=== PATIENT | male | born 1950 | race Caucasian/White ===

== ENCOUNTER 2016-06-29 10:01 | Outpatient (CLI) | payer MEDICAID ==
--- NOTE | 2016-06-30 05:57 | CONSULTATION NOTE ---
DATE OF CONSULTATION: 06/29/2016 00:00:00 REQUESTING PROVIDER: Frankie Parker MD, PhD TIME OF VISIT 11:30-12:15. Thank you, Dr. Parker, for asking the Palliative Care Consult Service to be involved in the care of yo ur patient. I am asked to provide support for symptom management, currently following him for his dep ression and anxiety. BRIEF HISTORY OF PRESENT ILLNESS: This is a esperanza 65-year-old gentleman with stage IV metastatic col on cancer to the liver diagnosed in 07/2015. He is currently on maintenance 5-FU and Avastin since . He has previously been diagnosed with metastatic disease to the lung in 09/2014, with a left l ower lobe resection in 02/2015. His initial treatment and diagnosis was actually stage II colon cance r in 07/2010. At that point in time, no adjuvant therapy. Currently he continues to struggle with the side effects of chemotherapy; most recently his most sign ificant symptom has been fatigue. He reports he is extremely tired. He has had some early satiety and difficulty eating. He has had about a 5-pound weight loss over this last month. He continues struggl ing with constipation alternating with the diarrhea; does seem to have difficulty being fairly aggres sive with his medications. His most pressing symptom overlay today continues to be his ongoing depres rosalva and situational stressors regarding his finances. SYMPTOM BURDEN: The patient does report right ankle pain that limits his functional ability; is curre ntly being seen by Physical Therapy. At this point in time he it taped, both his right ankle and righ t knee; he does feel like this helps, though he does continue to need his oxycodone 5 mg tabs - he ta kes anywhere from 4-6 tabs a day, depending on the severity and his activity. He continues to complai n of right hand, is wondering round about carpal tunnel syndrome. He has not followed up yet with Dr. Peralta. He does have anxiety and depression; has been inconsistent on his sertraline. He does have so me difficulty with medication compliance and remembering his pills. He remains easily overwhelmed and has recently seen the medical palliative care social research assistant to help him and assist with some followt hrough on his different financial stressors, as well as provide support and counseling. CODE STATUS: The patient is currently a FULL CODE. He does have a durable power of medical client care consultant, which is Moreno Marin, his brother, whose phone number is [phone]; and Lewis Marin as second in line, who is his nephew, who lives in [place], particularly if his brother is not available, and his phone number is [phone]. BRIEF SOCIAL HISTORY: The patient does live independently in an apartment in [place]. He does have a girlfriend, Shantelle, who provides psychosocial support, as well as the patient himself has been providin g support for her family. He does take care of Bobby, who is now in the 5th grade; it is a fairly con voluted story, but he is his girlfriend's sister's grandson. He does spend the weekend and does try t o provide somewhat of a big brother approach and has been very active in this little mari's life, and essentially perceives this as what keeps him going. PERFORMANCE STATUS: The patient continues to manage his own ADLs despite his fatigue. I would put him at a palliative care performance status of 70%. REVIEW OF SYSTEMS HEENT: He does have difficulty with teeth and dental issues; has had some mucositis with his last ellie motherapy. CARDIOVASCULAR: No chest pain. RESPIRATORY: He has shortness of breath and cough with any activity. GASTROINTESTINAL: He continues to struggle using his Imodium and Lomotil. He does have intermittent a norexia. 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 GENITOURINARY: He denies trouble with voiding. MUSCULOSKELETAL: He does continue to report deconditioning and fatigue and is starting with physical therapy. INTEGUMENTARY: His abdominal wound is healed. No further drainage. He does have some numbness and tin gling and dry skin on his fingers. PSYCHIATRIC: As noted above. ENDOCRINE: He continues to have feelings of coldness. HEMATOLOGIC/IMMUNOLOGIC: No recent infections. He reports he managed to evade the cold and flu with j ust maybe a 24-hour viral infection. PHYSICAL EXAMINATION GENERAL APPEARANCE: He does appear somewhat fatigued and pale. He is making eye contact. He is less t earful today. He does have some facial temporal wasting, as well as upper extremity. HEENT: Eyes normal on inspection. ENT: Poor dentition. No signs or symptoms of mucositis or candidias is at this point in time. RESPIRATORY: His breath sounds are diminished. CARDIOVASCULAR: His blood pressure is 131/92, pulse 71. ABDOMEN: Rounded, soft to palpation. Bowel tones are present. SKIN: His wound on his mid umbilical area has healed. He does have dry cracks in the tips of his fing ers and some peeling in his palms. EXTREMITIES: No signs or symptoms of edema. PALLIATIVE CARE DISCUSSION/WHO IS PRESENT: Myself and the patient. Patient, again, continues to strug gle with adherence to his medication, though he reports he has been taking it on a regular basis. We did discuss, given his depression and anxiety, weighing the benefits and burdens of increasing at thi s point in time. He most recently is struggling, with his car broken down, and this puts him with mor e difficulty with transportation, and it is a huge bill to get it fixed, and he is already struggling . He was hoping to find some kind of employment for a couple days a week despite his fatigue and has not been able to do this, and this has been quite distressing to him. He continues to work with [employer] agencies and so feels overwhelmed at times on following through. He does report he gets intermit tent anxiety attacks with this. When asked if he has thought much further into the future, as far as long-term plans, he remains quite guarded, hoping for the best. We did discuss, though, in the contex t of his financial situation, that preplanning some of the things into the future may be of assistanc e in helping him when the time comes. IMPRESSION: This is a 65-year-old gentleman with metastatic colon cancer to the liver and lung. He co ntinues to have depression and intermittent anxiety. He remains quite hopeful and continues to focus on gaining as much quality and quantity out of his life, as far as continuing therapy. His hope is to be around as long as possible for his "little franklin, Bobby." RECOMMENDATIONS/COUNSELING DONE 1. Chronic right ankle pain. I did provide his oxycodone prescription 5 mg 1 every 4 hours as needed, not to exceed 6 in 24 hours, 120 tabs, in the context that his primary care did follow up with him t o make an appointment for his right hand pain; he has not followed through on this. I did instruct th at, if he wanted resolution of this, he would have to follow up for proper workup regarding his right hand. He does suspect carpal tunnel, and it does impact his ability to type. 2. Depression in partial remission. He has restarted his sertraline; hard to weigh the benefits and b urdens, though he does seem less tearful. He continues to report intermittent anxiety. We did discuss weighing the benefits and burdens of pushing the dose up a little bit; I went ahead and wrote a pres cription for 50 mg and 25 mg tabs for a total of 75 mg. He has met with the medical palliative care s ocial worker. The patient has somewhat maximized all his resources. She did encourage him to follow u p with [facility], who is his community advocacy network. I did give him the number for [facility]; they do sometimes assist "outside of the box" and may be able to help with some of his expenses. Counseling regarding normalizing his feelings of distress, given his current situation, did validate some of the work he is doing with Bobby in preparation for his future decline. Also discussed [facility], as far as planning into the future. 3. Anorexia. I did offer to write for something for an appetite stimulant; patient currently feels li ke he can work with marijuana. As far as timing-rueda, as it is effective for him, we did discuss some different strategies for increasing his caloric intake. Did reinforce counseling regarding the need to stay weight neutral as best able to tolerate his treatment. Instruction reinforced on mouth care f or mucositis. Time spent 45 minutes, with greater than 50% of this done in counseling and coordination of care, cou nseling regarding depression and anxiety, Social Service followup, as well as anticipatory guidance. JOB #: [id number] EXT JOB #:[id number]
== END 2016-06-29 10:02 | disposition home or self-care (01) ==
LOC: PC 10:01
PROVIDERS: ATTEND Nurse Practitioner Adult Health
DX: C22.9 Malignant neoplasm of liver, not specified as primary or secondary (principal); Z86.008 Personal history of in-situ neoplasm of other site; F41.8 Other specified anxiety disorders; R53.0 Neoplastic (malignant) related fatigue; R68.81 Early satiety; R63.4 Abnormal weight loss; M25.561 Pain in right knee; M25.571 Pain in right ankle and joints of right foot; K12.30 Oral mucositis (ulcerative), unspecified; R06.02 Shortness of breath; R63.0 Anorexia; R20.0 Anesthesia of skin; Z51.5 Encounter for palliative care
CPT/HCPCS: 99215

== ENCOUNTER 2016-07-10 10:08 | Outpatient (CLI) | payer MEDICAID | END 2016-07-10 10:09 | disposition home or self-care (01) | DX: M18.11 Unilateral primary osteoarthritis of first carpometacarpal joint, right hand (principal); M19.031 Primary osteoarthritis, right wrist; M25.531 Pain in right wrist ==

== ENCOUNTER 2016-07-27 | Outpatient (CLI) | payer MEDICAID | END 2016-07-27 12:44 | disposition home or self-care (01) ==

== ENCOUNTER 2016-08-24 09:57 | Outpatient (CLI) | payer MEDICAID | END 2016-08-24 09:58 | disposition home or self-care (01) | DX: C18.9 Malignant neoplasm of colon, unspecified (principal); C78.7 Secondary malignant neoplasm of liver and intrahepatic bile duct; C78.00 Secondary malignant neoplasm of unspecified lung; M25.571 Pain in right ankle and joints of right foot; K46.9 Unspecified abdominal hernia without obstruction or gangrene; F33.41 Major depressive disorder, recurrent, in partial remission; F41.9 Anxiety disorder, unspecified; J32.9 Chronic sinusitis, unspecified; B97.89 Other viral agents as the cause of diseases classified elsewhere; G56.01 Carpal tunnel syndrome, right upper limb; R53.83 Other fatigue; R11.0 Nausea; R06.02 Shortness of breath; Z51.5 Encounter for palliative care ==

== ENCOUNTER 2016-09-21 14:53 | Outpatient (CLI) | payer MEDICAID | END 2016-09-21 14:54 | disposition home or self-care (01) | DX: Z53.8 Procedure and treatment not carried out for other reasons (principal) ==

== ENCOUNTER 2016-10-26 08:49 | Day surgery (SDC) | payer MEDICAID ==
[2016-10-26] MEDS ORDERED: LACTATED RINGERS 1,000 ML IV ONE (09:47)
[2016-10-26] MEDS ORDERED: ceFAZolin 2 GM/50 ML 50 ML IV ONE (10:48)
[2016-10-26] MEDS ORDERED: BUPIVACAINE 0.5% PF 10 ML VIAL IM ONE ×2 (12:47)
[2016-10-26] MEDS ORDERED: ONDANSETRON 4 MG/2 ML VIAL IVP ONE (12:50)
[2016-10-26] MEDS ORDERED: fentaNYL 100 MCG/2 ML VIAL IVP ONE (12:50)
[2016-10-26] MEDS ORDERED: MIDAZOLAM 2 MG/2 ML VIAL IVP ONE (12:50)
[2016-10-26] MEDS ORDERED: LIDOCAINE-MPF 2% 5 ML VIAL IM ONE (12:50)
[2016-10-26] MEDS ORDERED: PROPOFOL 200 MG/20 ML VIAL IVP ONE (12:50)
[2016-10-26] MEDS ORDERED: SUCCINYLCHOLINE 200 MG/10 ML VIAL IVP ONE (12:50)
[2016-10-26] MEDS ORDERED: ePHEDrine 50 MG/ML AMP IVP ONE (12:50)
[2016-10-26] MEDS ORDERED: DEXAMETHASONE 4 MG/ML VIAL IVP ONE (12:50)
[2016-10-26 15:07] VITALS: BP 143/88
--- NOTE | 2016-11-11 11:52 | OPERATIVE REPORT ---
DATE OF SURGERY: 10/26/2016 00:00:00 PREOPERATIVE DIAGNOSIS: Right carpal tunnel syndrome. POSTOPERATIVE DIAGNOSIS: Right carpal tunnel syndrome. NAME OF PROCEDURE: Right carpal tunnel release. SURGEON: Derrell Blakely MD. ASSISTANTS: None. SPONGE AND NEEDLE COUNTS: Correct. MATERIAL TO LAB: None. ANESTHESIA: General endotracheal. FINDINGS: Same. COMPLICATIONS: None. TOURNIQUET: Esmarch to right hand x11 minutes without complications. ESTIMATED BLOOD LOSS: None. SPECIMEN REMOVED AND CULTURES: None. CONDITION AT END OF PROCEDURE: Stable. DISPOSITION: PACU, then home. INDICATIONS: This is a 65-year-old male with documented history of bilateral carpal tunnel syndrome w ho is undergoing a right carpal tunnel release after findings were confirmed with EMG and nerve condu ction studies and he has failed conservative management. PROCEDURE IN DETAIL: After consent and identification, the patient was brought to the operating room and placed in a supine position on the operating litter. After induction of a general endotracheal an esthesia and appropriate monitoring, the right upper extremity was prepped and draped free in the usu al sterile fashion for hand surgery. After an appropriate timeout was conducted, we used an Esmarch bandage to exsanguinate the upper extr emity and left it wrapped at the proximal forearm up to just past the elbow. We supinated the forearm and mapped out an incision just lateral to the mid palmar crease extending from the wrist flexor cre ase distally, a total of 3 cm. Skin was incised with a #15 blade scalpel through the skin and subcuta neous tissue. The #15 blade scalpel was used to divide the palmar fascia. A Heiss retractor and Lizbeth ll retractors were used to retract the soft tissues, which allowed identification of the transverse c arpal retinaculum. We incised the retinaculum just ulnar to the origin of the thenar musculature. Swe eping motions of the midportion of the retinaculum were used to make a small rent, through which we i nserted the blunt end of a [place] elevator to protect the median nerve. We then completed our dissecti on distally and proximally with a #15 blade scalpel and tenotomy scissors. Digital exploration with my small finger verified adequate release of the carpal tunnel both proximal ly and distally. Instrumentation was removed, the wound was irrigated, and then closed with a running interlocked 4-0 nylon suture. After completing the suturing, we infiltrated the wound with 5 mL of 0.5% Marcaine without epinephrin e. The wound was dressed with Xeroform gauze, folded 4 x 4's, 3 inch Miky wrap, and 3-inch Garrick bandage for a bulky hand dressing. On completion of the procedure, the patient was extubated and transferred to the recovery room in [facility] condition having tolerated the procedure well. JOB #: [id number] EXT JOB #:[id number]
== END 2016-10-26 08:50 | disposition home or self-care (01) ==
LOC: SDS 08:49
PROVIDERS: ATTEND Orthopaedic Surgery
PROC: 01N50ZZ Release Median Nerve, Open Approach (ICD-10-PCS; principal; 2016-10-26 10:15)
DX: G56.01 Carpal tunnel syndrome, right upper limb (principal); Z87.891 Personal history of nicotine dependence; I10 Essential (primary) hypertension; Z92.21 Personal history of antineoplastic chemotherapy; K21.9 Gastro-esophageal reflux disease without esophagitis; F32.9 Major depressive disorder, single episode, unspecified; F41.9 Anxiety disorder, unspecified; M19.011 Primary osteoarthritis, right shoulder; Z79.82 Long term (current) use of aspirin; J44.9 Chronic obstructive pulmonary disease, unspecified; C18.9 Malignant neoplasm of colon, unspecified; R64 Cachexia; Z68.23 Body mass index [BMI] 23.0-23.9, adult
CPT/HCPCS: 64721; J0690; J7120

== ENCOUNTER 2016-11-10 11:18 | Outpatient (CLI) | payer MEDICAID ==
--- NOTE | 2016-11-11 05:48 | CONSULTATION NOTE ---
DATE OF CONSULTATION: 11/10/2016 00:00:00 REQUESTING PROVIDER: Frankie Parker MD. TIME OF VISIT: 12:15-12:45. Thank you, Dr. Parker, for asking the palliative care consultation service to be involved in the care of your patient. I am asked to provide support for symptom management. I am currently following him f or his pain, depression and anxiety and transitions of care. BRIEF HISTORY OF PRESENT ILLNESS UPDATE: This is a 65-year-old gentleman with stage IV metastatic col on cancer to the liver, diagnosed in 07/2015. He also has metastatic disease to the lung and left low er lobe resection in 02/2015. He was off chemotherapy for 3 weeks, for which he said he actually felt pretty good, had more energy. His bowels were regulated. His appetite was improved and felt overall better quality of life. He, though, himself his goals are to obtain as much quantity and quality of l cole, as he does have many things yet that he wants to complete and accomplish and support in his life . He has most recently addressed his carpal tunnel syndrome, which is right hand on 10/26 had surgery . He has had some improvement with the numbness, that the pain is mostly resolved. On examination, he has no swelling. He has good range of motion and his stitches are still intact. He has not had a fol lowup with his surgeon yet. He continues with intermittent pain. Most of it is osteoarthritic in natu re, particularly his right ankle, for which he uses oxycodone 1-2 tabs a day. Has used it more freque ntly with his recent surgery. Since I last saw him on 08/24, he had missed his appointment September, he has had some weight loss. Toda y, he weighs in at 142. When I saw him 2 months ago he was 149. His weight in September was 146. He repor ts he continues to struggle with eating regularly. They are many barriers including financial, as wel l as adherence and staying focused. He does try to use Ensure, but has not been as consistent lately. He does have some temporal and upper and lower body wasting and does appear quite thin and somewhat dry today. We did explore his depression. He has been taking his sertraline as instructed. He does have a fluctu ating mood and ongoing anxiety. These are mostly attributed to his financial stressors and some anxie ty about the future. He perceives though currently his overall quality of life is quite good. Please see palliative care discussion. CODE STATUS: THE PATIENT IS CURRENTLY A FULL CODE. HE DOES HAVE DURABLE POWER OF MEDICAL DIRECTOR VIDEO, HI S BROTHER, RENEE MARTIN, HIS PHONE NUMBER IS [phone], AND HIS NEPHEW, CHEMA MARTIN, IF HIS BR OTHER IS NOT AVAILABLE, HIS PHONE NUMBER IS [phone]. BRIEF SOCIAL HISTORY: The patient lives independently in a low income apartment in [place]. Has a gir lfriendShantelle, who is otherwise distracted with her own family issues. Her mother recently and h er sister is doing poorly. He does give a fair amount of support to what he calls his grandson, Bobby , taking him on the weekends and is expecting to have more time with him in the summer. He finds this relationship quite meaningful. The boy has his challenges including ADHD and finds the relationship as a somewhat stabilizing force. The patient identifies this as his perceived reason for living, this relationship, and is quite committed. PERFORMANCE STATUS: The patient continues to manage his own ADLs. He has been driving more. I would a ctually put him at a palliative care performance status of 70%. REVIEW OF SYSTEMS HEENT: He reports a good response to the Flonase, it has been better since actually he stopped his ch emotherapy. He continues to have difficulty with teeth and dental issues, some mild hearing issues. CARDIOVASCULAR: Denies chest pain, only some intermittent GERD. RESPIRATORY: Shortness of breath with activity only, occasional dry cough. This is not changed from b aseline. GASTROINTESTINAL: He has not had any trouble with his diarrhea. Reports he has a prescription for Lom otil and Imodium at home. He does have intermittent anorexia. GENITOURINARY: Denies trouble with voiding. MUSCULOSKELETAL: Currently his physical therapy is on hold, as he has aqua therapy and has currently an incision. INTEGUMENTARY: Dry skin. NEUROLOGIC: Continues with numbness and tingling in his fingers and toes, particularly cold sensitivi ty. PSYCHIATRIC: Continues with depression and anxiety. Is being adherent to his regimen. ENDOCRINE: No recent difficulties. HEMATOLOGIC/IMMUNOLOGIC: No recent infections. PHYSICAL EXAMINATION GENERAL APPEARANCE: He does appear somewhat thin in the face and pale with some periorbital edema. He does make good eye contact. He does have some tearfulness, but less than previously. EYES: Normal on inspection. ENT: Poor dentition. RESPIRATORY: Diminished breath sounds, but clear. CARDIOVASCULAR: His pulse is 72 and regular. ABDOMEN: Soft. EXTREMITIES: No signs or symptoms of edema. PALLIATIVE CARE DISCUSSION: Who is present, myself and the patient. The patient was really quite expr essive, particularly given his concerns about how his was going to affect Bobby. He reports his dad of leukemia, had taken one chemotherapy and had rather suddenly when he was a young ma n. He reports that he would angry for about a decade until he went through lung cancer with his mothe r who lasted for about 2 years and was somewhat of a relief when finally came. He reports that his mantra is from the [employer] show, "don't let the bastards get you down." He has been coming to the [facility] for a long period of time, is quite connected to the staff, sees them as family and his lifeline fo r coping. He tends to be jovial and joke quite a bit, though underlying, is able to identify signific ant sources of anxiety for him. When asked about if he was worried about his own future, he is more w orried about the impact of those around him. Currently does not want to explore this further, though he does understand that he has a terminal illness, he is hoping for the best. IMPRESSION: This is a 65-year-old gentleman with metastatic colon cancer to the liver and lung who co ntinues to struggle with depression, anxiety, and significant financial stressors. He now presents wi th increased weight loss. His pain is better with his recent carpal tunnel surgery. RECOMMENDATIONS/COUNSELING DONE 1. Weight loss. In reviewing his patterns of intake, he is not adherent to taking regular meals. He g ets distracted. Financial stressors play into this. He is hoping as he will be more responsible for S madie, that he will get more into a pattern as summer is here. We did do some counseling regarding eran e strategies for being more adherent to eating on a regular basis. I did reiterate the need for him t o focus on no further weight loss, of things that are within his control. Certainly along with progre ssive disease, comes weight loss, but at this point in time he is able to identify things that are co ntributing to his decreased caloric intake. 2. Depression. He reports he is responding well to the sertraline 50 mg. He reports adherence to this . 3. Chronic right ankle pain. I did provide a new prescription of Oxycodone 5 mg 1-2 tabs every 4-6 ho urs, not to exceed 6 in 24 hours and 60 tabs were provided and counseling regarding opioid safety and storage and use was provided. 4. Advanced care planning. The patient will need a more descriptive end-of-life plan when the time co mes, given his fragile community network. He has been meeting with Debora Monroe, the [facility] e care director social service, on a regular basis. He has accessed multiple resources that have been available to him, but finances remain difficult and impactful for his day-to-day living. TIME SPENT: 30 minutes with greater than 50% of this done in counseling and coordination of care, rev iewing his current depression and anxiety, as well as anticipatory guidance. JOB #: [id number] EXT JOB #:[id number]
== END 2016-11-10 11:19 | disposition home or self-care (01) ==
LOC: PC 11:18
PROVIDERS: ATTEND Nurse Practitioner Adult Health
DX: Z51.5 Encounter for palliative care (principal); R63.4 Abnormal weight loss; F32.9 Major depressive disorder, single episode, unspecified; M25.571 Pain in right ankle and joints of right foot; G89.29 Other chronic pain; C18.9 Malignant neoplasm of colon, unspecified; C78.7 Secondary malignant neoplasm of liver and intrahepatic bile duct; C78.02 Secondary malignant neoplasm of left lung; F41.9 Anxiety disorder, unspecified; K21.9 Gastro-esophageal reflux disease without esophagitis; R06.09 Other forms of dyspnea; R05 Cough; R20.2 Paresthesia of skin
CPT/HCPCS: 99214

== ENCOUNTER 2016-12-07 16:06 | Outpatient (CLI) | payer MEDICAID ==
--- NOTE | 2016-12-08 06:01 | CONSULTATION NOTE ---
DATE OF CONSULTATION: 12/07/2016 00:00:00 REQUESTING PROVIDER: Frankie Parker MD, PhD TIME OF VISIT: 1555 to 1640 hours. Thank you, Dr. Parker, for asking the Palliative Care Consult Service to be involved in the care of yo ur patient. I am asked to provide support for symptom management. I am following him for his pain, de pression and anxiety, and transitions of care. BRIEF HISTORY OF PRESENT ILLNESS UPDATE: This is a 66-year-old gentleman with stage IV metastatic col on cancer to the liver, diagnosed in 07/2015. He also has metastatic to the lung and left lobe resect ion in 02/2015. He is back on his maintenance chemotherapy, which he is getting maintenance 5-FU and Avastin since 05/2016, with stable disease. He most recently had his scans on 11/11/2016. His CT of t he chest shows longstanding emphysema, a stable retrocrural lymph node, and no significant interval c hange. His CT of abdomen and pelvis with contrast showed stable postoperative changes and no evidence of metastatic disease or significant interval change either. Patient does have ebvos-no-morflin pain today. In the last few days, he turned his ankle while playin g baseball with his younger friend, Bobby. On examination, it is tender to touch over the lateral gee e of the foot with a small amount of swelling. He is able to weight bear; has severe osteoarthritis f rom previous injuries to his ankle. He does not feel it is currently broken but is having difficulty with increased pain. He is using his oxycodone 5 mg about 2 or 3 times a day, along with ice and elev ation. SYMPTOM BURDEN: Pain as noted above, moderate to severe pain in his right ankle. No other symptoms of pain. His right carpal tunnel pain has improved dramatically since his surgery. His fatigue, he repo rts, is still significant, particularly in the 24-48 hours after his chemotherapy. He does feel like his energy is down, and he reports after chemotherapy it is a "crash." He continues along with increa sed diarrhea and continues to struggle with managing that as well as adequate fluid intake during tho se first few days. He has gained a couple more pounds. He was up to 144; the last time we met on the he was at 142. He does continue to struggle with meal prep and appetite; this has a lot to do wi th taste changes. He does report shortness of breath with activity. No increase in cough. He reports his depression is currently well controlled. He continues to struggle with anxiety on a regular basis , which he manages with his diazepam 5 mg b.i.d. Much of his anxiety and stressors, as far as impacti ng quality of life, have to do with financial. MEDICATION ALLERGIES 1. NITROUS OXIDE. 2. TRAMADOL. MEDICATIONS Patient is currently takin. Diazepam 5 mg p.o. b.i.d. 2. Lomotil 2.5 mg orally up to 4 times a day. 3. Iron sulfate 325 mg orally, he is not currently taking. Please see discussion. 4. Lorazepam 0.5 mg every 6 hours p.r.n. for breakthrough nausea and vomiting. He does not know if he has any of the current medication in the home. 5. Lisinopril 10 mg orally daily. 6. Loperamide 2 mg p.o. up to 4 times a day in supplementing for diarrhea from chemotherapy. 7. Omeprazole 20 mg, reordered this. Please see discussion below. 8. Ondansetron 8 mg 1 tab every 8 hours p.r.n. nausea. 9. Prochlorperazine 10 mg every 6 hours as needed for nausea or vomiting. 10. Sertraline 50 mg p.o. daily. 11. Oxycodone 5 mg 1 tab up to 4 times a day as needed for pain. CODE STATUS: Patient is currently a FULL CODE. He does have durable power of finance attorney assigned to his brother, Moreno Marin, his phone number is [phone]; and his nephew Lewis Marin if his broth er is not available, his phone number is [phone]. BRIEF SOCIAL HISTORY: Patient continues to live independently in a low-income apartment in [place]. Kelly lange has a girlfriend, Shantelle, who does provide support but has own family issues. He does give a fair rick unt of support to what he calls his "grandson" Bobby, whose relationship is quite meaningful to him, as far as providing him a reason to keep on going. The boy has his challenges, including ADHD, and patient continues to work with him on managing his be haviors. Now that it is summer, he is having more responsibility and time with Bobby. PERFORMANCE STATUS: The patient continues to manage his own ADLs, though he has been less active now that he has sprained his ankle. I would put him, though, at a palliative care performance status of a bout 70%. REVIEW OF SYSTEMS HEENT: He continues to have nasal congestion, difficulty with teeth and dental issues, some mild hear ing loss. CARDIOVASCULAR: He denies chest pain, though he does report some increase in GERD, but it turns out h nazario has not been taking his omeprazole, and a new prescription is written. RESPIRATORY: Shortness of breath with activity, not changed from baseline. GASTROINTESTINAL: Continues to struggle every other week with his chemotherapy and managing his diarr hea. He does currently have some underlying anorexia. GENITOURINARY: No complaints. MUSCULOSKELETAL: His current physical therapy remains on hold secondary to his concern about diarrhea . He is thinking about restarting at least every other week on his weeks off. INTEGUMENTARY: Scar is healing well on his right hand. NEUROLOGIC: He continues to have numbness and tingling of fingers and toes, particularly cold sensiti vity secondary to chemotherapy. PSYCHIATRIC: He continues to struggle with depression and anxiety, is being adherent to his current r egimen. ENDOCRINE: No recent difficulties. HEMATOLOGIC/IMMUNOLOGIC: No recent infections, though he does remain with some mild anemia and a hemo globin of 12.9. PALLIATIVE CARE DISCUSSION/WHO IS PRESENT: Myself, the patient, and nurse practitioner Nadya Preston. T he patient continues to struggle with day-to-day financial stressors, managing medication adherence, and meal prep, as well as now with the added responsibility of his "grandson" Bobby with the summer v acation. He tends to be jovial and joke quite a bit, though underlying has significant anxiety and co ntinues to really hope for the best. He does appear to have some insight to understanding the serious ness of his illness but continues to see the interdisciplinary team and clinical staff at the [facility] as support to him. IMPRESSION: This is a 66-year-old gentleman with metastatic colon cancer to liver and lung who contin ues to struggle with depression, anxiety, and significant financial stressors. He has had no further weight loss and is tolerating his current chemotherapy with just a few days of significant distress. RECOMMENDATIONS/COUNSELING DONE 1. Weight loss. He has gained 2 pounds since our last visit. He continues to have difficulty remember ing to do the protein shakes; for him financial stressors play into this, he is hoping to get into mo re of a pattern with Bobby's schedule. 2. Depression. He reports he is getting good response to the sertraline 50 mg and continues with neal mauricio. 3. Shaxk-mg-dmmliqn right ankle pain. The patient declines need for x-ray at this point in time, repo rts it is not worsening. We did discuss about off-loading, he does have crutches home, to give it a b it of a rest, continue with the icing and elevation, and using oxycodone for more moderate to severe pain. 4. Advanced care planning. Patient continues to need more descriptive end-of-life plan, when the time comes, given his fragile community network; he is working with the palliative care social service coordinator, salma washington will continue to provide support and is aware he needs to have a plan in place. 5. Anemia. He has been instructed to use Iron sulfate in the past. He does believe he has a bottle at home. The instruction was given to take it with vitamin C i.e. His orange juice and not with dairy p roducts. Reviewed the side effects including dark stool, stomach pain, constipation. Patient has not been taking it up to this point in time. 6. GERD. Patient does report increased reflux, has had ulcers in the past. Currently has not been steph ing his omeprazole. Prescription was provided for omeprazole 20 mg daily, as well as a new prescripti on for his oxycodone. Time spent 45 minutes, with greater than 50% of this done in counseling, reviewing his current depres rosalva/anxiety, management of his gugpp-sw-ahlfpci pain, and anticipatory guidance. JOB #: [id number] EXT JOB #:[id number]
== END 2016-12-07 16:07 | disposition home or self-care (01) ==
LOC: PC 16:06
PROVIDERS: ATTEND Nurse Practitioner Adult Health
DX: Z51.5 Encounter for palliative care (principal); R63.4 Abnormal weight loss; F32.9 Major depressive disorder, single episode, unspecified; G89.29 Other chronic pain; D64.9 Anemia, unspecified; K21.9 Gastro-esophageal reflux disease without esophagitis; C18.9 Malignant neoplasm of colon, unspecified; C78.7 Secondary malignant neoplasm of liver and intrahepatic bile duct; C78.00 Secondary malignant neoplasm of unspecified lung; Z79.899 Other long term (current) drug therapy; J43.9 Emphysema, unspecified; R19.7 Diarrhea, unspecified; R06.09 Other forms of dyspnea; F41.9 Anxiety disorder, unspecified; Z79.891 Long term (current) use of opiate analgesic; R09.81 Nasal congestion
CPT/HCPCS: 99215

== ENCOUNTER 2017-01-04 12:56 | Outpatient (CLI) | payer MEDICAID ==
--- NOTE | 2017-01-04 21:25 | PROVIDER PROGRESS NOTE ---
Palliative Care Follow Up - Referral Referring Provider: Dr. Parker Time of Visit: 12:15-12:45 Referral setting: [facility] [place] Referral Reason: Depression - Information Sources Records Reviewed: Other (oncology notes) History obtained from: Patient Exam limitations: No limitations - History of Present Illness Update Brief HPI Update: This is a 66 year old gentleman with Stage IV metastatic Colon Cancer to the lung in 09/2014 with left lobe resection in 02/2015, and liver 07/2015 with hepatic left lobe resection in 01/2016. His original diagnosis was with Stage II colon cancer in 07/2010 with hemicolectomy and at that time with no adjuvant therapy. He has been on multiple rounds of chemotherapy with good response, and most recent scans show stable disease, currently on maintenance 5 FU and Avastin. Palliative care has been following for depression and anxiety, patient has many external and financial stressors impacting his quality of life. Social History - Living Situation Living arrangement: At home Living Situation: Alone Support System: Has girlfriend Shantelle, she has many obligations so does not provide hands on care , but emotionally supportive. Bobby who is related to her, he takes care of particularly in the summer, gives him a reason to keep going. 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 Medications/Allergies - Medications Home Medications: Ambulatory Orders Medication Instructions Recorded Confirmed Lisinopril 10 mg PO DAILY 03/08/13 12/21/16 Diazepam [Valium] 5 mg PO BID 10/12/14 12/21/16 Diphenoxylate HCl/Atropine 2.5 mg PO QID 12/24/14 12/21/16 [Lomotil 2.5-0.025 mg Tablet] oxyCODONE [Roxicodone] 1 tab PO QID PRN 03/18/15 12/21/16 Ondansetron [Ondansetron Odt] 1 tab ORAL Q8H PRN 11/06/15 12/21/16 Prochlorperazine Maleate 10 mg PO Q6H PRN 11/06/15 12/21/16 [Compazine] LORazepam [Ativan] 0.5 mg PO Q6HR PRN 03/23/16 12/21/16 Loperamide [Imodium] 2 mg PO QID PRN 05/20/16 12/21/16 Sertraline [Zoloft] 50 mg PO DAILY 08/26/16 12/21/16 Iron Sulfate 325 mg ORAL DAILY 10/05/16 12/21/16 Fluticasone [Flonase] 1 spray TANGELA DAILY PRN 01/04/17 01/04/17 - Allergies Allergies/Adverse Reactions: Allergies Allergy/AdvReac Type Severity Reaction Status Date / Time nitrous oxide [Nitrous Oxide] AdvReac Hallucinati Verified 09/17/15 08:24 ons tramadol AdvReac Nausea Verified 09/17/15 08:24 Review of Systems - Constitutional Constitutional: reports: Fatigue, Weight gain - Eyes Eyes: reports: Blurred vision - Ears, Nose & Throat Ears, Nose & Throat: reports: Hearing loss, Nasal congestion, Postnasal drainage (not using flonase consistently), Dental decay (Patient with poor dentition, no insurance, aware of [employer] resource, long waiting list and has not followed through) - Cardiovascular Cariovascular: reports: Exertional dyspnea, Decr. exercise tolerance. denies: Chest pain - Respiratory Respiratory: reports: Cough, SOB with exertion. denies: Sputum production, SOB at rest - Gastrointestinal Gastrointestinal: reports: Diarrhea (Feels like finally managing with medications), Reflux/heartburn (unable to get omeprazole through insurance, uses "soda water", will try another medication for formulary), Poor appetite ( not consistent in intake, better weight at 145) - Genitourinary Genitourinary: reports: Frequency (at night). 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 denies: Recurrent infections - All Other Systems All Other Systems: reports: Reviewed and negative Physical Examination - Vital Signs Pulse Rate: 72 - Physical Exam General Appearance: positive: No acute distress, Anxious Eyes Bilateral: positive: Normal inspection ENT: positive: Other (sniffs frequently; poor dentition, no signs of abcess). negative: Oral lesions Neck: positive: No JVD, Trachea midline Respiratory: positive: Breath sounds nml. negative: Wheezes Cardiovascular: positive: Regular rate & rhythm Abdomen: positive: Nml bowel sounds Skin: positive: Dryness Extremities: positive: Pedal edema (slight swelling cont. in right ankle, causes pain and limits tolerance for ambulation), Other (right hand healed from surgery) Neurologic/Psychiatric: positive: Oriented x3, Other (Discussed at length use of medications, particulary in the context of his concern for sedation/lack of concentration, uses marijuana as well for appetite) Palliative Care - POLST Patient has POLST: No POLST Status: Full Code Pain: Pain unchanged, Location (right ankle, managed with oxycodone 5 mg about 2 tabs day) Drowsiness: Mild (1-3) (attributes this mostly to fatigue) Nausea: None (most problematic is GERD symptoms) Anxiety: Moderate (4-6) (Using valium 5 mg long term acute care registered nurse, tries to limit to daily. Had decreased sertraline for 75 mg to 50 mg because of perceived sedation.) Dyspnea: Mild (1-3) (with exertion) Anorexia: Moderate (4-6) ("forgets to eat" hoping with Bobby here this summer will be more focused) Insomnia: Sleeps well Constipation: Yes, Managed Feelings of wellbeing/Perceived Quality of Life: No change Performance Status: Patient driving, able to manage own Adls, does get tired with chemotherapy - Palliative Care Discussion: Continues to focus on maintaining current quality of life, which is acceptable, low symptom burden other than chemotherapy side effects. Has custodial anxiety disorder, now exacerbated by financial stressors, perceives THEO as his family and support, has friends who reach out to him. Palliative Care Partridge Farmer in touch on regular basis, will need more defined EOL plan at time disease progression. Finds his goal is still to live as long as possible to support Bobby, he is here with him today, but sleeping on chair, not engaged, had "sleepover" last night, both are exhausted. Impression and Recommendations - Palliative Care Impression: This is a 66 year old gentleman with metastatic colon cancer to lung and liver, continues to struggle with depression, anxiety and fianancial stressors. Patient on maintenance therapy, no further weight loss and managing side effects per his satisfaction. Recommendations/Counseling Done: 1. Depression, currently without persistent helplessness or hopelessness, does get discouraged with finances. Reminded when started on zoloft, was quite tearful and difficult talking about illness. Had pushed it up with increased sedation, reviewed other medications using at night including valium/marijuana. Using the valium less, but gets quite anxious at times to point of panic. Discussed can rotate to another antidepressent, will consider next appointment, would recommend we more effexor. 2. GERD. Unable to get medication as OTC, wrote RX for lansoprazole [address], looks like on formulary, inst. to call if did not fill. Has been using baking soda at night when escalates. 3. Chronic ankle pain. Rx provided for oxycodone 5 mg for 60 tabs. Encouraged to restart Physical Therapy when able to arrange or afford transportation. 4. Medication adherence. using pill box, does have difficulty remembering to take along with other issues with concentration. Reluctant to add more medications to regimen given this issue, reviewed strategies to try. Time Spent: 30 minutes with greater than 50% done in counseling regarding depression and anxiety opioid safety and medication adherence.
== END 2017-01-04 12:57 | disposition home or self-care (01) ==
LOC: PC 12:56
PROVIDERS: ATTEND Nurse Practitioner Adult Health
DX: Z51.5 Encounter for palliative care (principal); F32.9 Major depressive disorder, single episode, unspecified; K21.9 Gastro-esophageal reflux disease without esophagitis; M25.571 Pain in right ankle and joints of right foot; F41.9 Anxiety disorder, unspecified; Z79.891 Long term (current) use of opiate analgesic; C18.9 Malignant neoplasm of colon, unspecified; C78.7 Secondary malignant neoplasm of liver and intrahepatic bile duct; C78.02 Secondary malignant neoplasm of left lung; H53.8 Other visual disturbances; R06.09 Other forms of dyspnea; R05 Cough; R19.7 Diarrhea, unspecified; R35.0 Frequency of micturition; D64.9 Anemia, unspecified; R60.0 Localized edema; R63.0 Anorexia

== ENCOUNTER 2017-02-02 12:59 | Outpatient (CLI) | payer MEDICAID ==
--- NOTE | 2017-02-02 22:16 | PROVIDER PROGRESS NOTE ---
Palliative Care Follow Up - Referral Referring Provider: Dr. Frankie Parker Time of Visit: 5556-2551 Referral setting: [facility] [place] Referral Reason: Depression - Information Sources Records Reviewed: Old records reviewed History obtained from: Patient Exam limitations: No limitations - History of Present Illness Update Brief HPI Update: This is a 66 year old gentleman with stage IV coloncaner to the liver and lungs. Has had surgery for stage II colon caner in 07/2010, left lower lobe resection 02/2015, and liver mass resection in 01/2016. He has been on chemotherapy since 12/2014 with periods of induction and maintenance. He has done fairly well over all struggling with the toxicities of fatigue and diarrhea. His most recent scans have showed no evidence of disease progression, for which he is very grateful, but will be changing regimens which has exacerbated his anxiety. I have been seeing him on a regular basis for his depression, anxiety and advanced care planning. Social History - Living Situation Living arrangement: At home Living Situation: Alone Support System: Has girlfriend Shantelle who has many of her own stressors, but is of support to him. 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 This is "what keeps him going" and continues to work hard at providing a stable relationship for him. Medications/Allergies - Medications Home Medications: Ambulatory Orders Medication Instructions Recorded Confirmed Lisinopril 10 mg PO DAILY 03/08/13 02/01/17 Diazepam [Valium] 5 mg PO BID 10/12/14 02/01/17 Diphenoxylate HCl/Atropine 2.5 mg PO QID 12/24/14 02/01/17 [Lomotil 2.5-0.025 mg Tablet] oxyCODONE [Roxicodone] 1 tab PO QID PRN 03/18/15 02/01/17 Ondansetron [Ondansetron Odt] 1 tab ORAL Q8H PRN 11/06/15 02/01/17 Prochlorperazine Maleate 10 mg PO Q6H PRN 11/06/15 02/01/17 [Compazine] LORazepam [Ativan] 0.5 mg PO Q6HR PRN 03/23/16 02/01/17 Loperamide [Imodium] 2 mg PO QID PRN 05/20/16 02/01/17 Sertraline [Zoloft] 50 mg PO DAILY 08/26/16 02/01/17 Iron Sulfate 325 mg ORAL DAILY 10/05/16 02/01/17 Fluticasone [Flonase] 1 spray TANGELA DAILY PRN 01/04/17 02/01/17 Lansoprazole 15 mg PO DAILY 01/05/17 02/01/17 Ipratropium/Albuterol [Combivent 20 mcg INH Q4HR PRN 02/01/17 02/01/17 Respimat] - Allergies Allergies/Adverse Reactions: Allergies Allergy/AdvReac Type Severity Reaction Status Date / Time nitrous oxide [Nitrous Oxide] AdvReac Hallucinati Verified 09/17/15 08:24 ons tramadol AdvReac Nausea Verified 09/17/15 08:24 Review of Systems - Constitutional Constitutional: reports: Fatigue, Weakness, Poor appetite, Other (remaining stable at 145) - Eyes Eyes: reports: Vision loss - Ears, Nose & Throat Ears, Nose & Throat: reports: Dental decay - Cardiovascular Cariovascular: reports: Exertional dyspnea, Decr. exercise tolerance. denies: Chest pain, Edema, Lightheadedness - Respiratory Respiratory: reports: Cough, Sputum production (occasional clear; was exacerbated by the smoke from [facility] had to use inhalers), SOB with exertion. denies: Hemoptysis, Orthopnea, SOB at rest - Gastrointestinal Gastrointestinal: reports: Constipation, Diarrhea, Reflux/heartburn (had gotten Rx for lansoprazole but has not started it because said to take it before meals and keeps forgetting). denies: Rectal bleeding, Nausea, Vomiting - Genitourinary Genitourinary: denies: Dysuria, Incontinence - Musculoskeletal Musculoskeletal: reports: Muscle aches, Stiffness, Limited range of motion ( right ankle, chronic injury) - Integumentary Integumentary: reports: Dryness, Hair changes (thinned) - Neurological Neurological: reports: General weakness, Memory problems (forgetful) - Psychiatric Psychiatric: reports: Depression, Anxiety. 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 negative: No scleral icterus ENT: positive: Other (poor dentition) Neck: positive: Trachea midline Respiratory: positive: Breath sounds nml (diminished LLL). negative: Wheezes Cardiovascular: positive: Regular rate & rhythm Abdomen: positive: Non-tender, Nml bowel sounds, No distention Skin: positive: Rash (dryness/flaking on neck) Extremities: positive: No pedal edema Neurologic/Psychiatric: positive: Oriented x3, Mood/affect nml, Weakness Palliative Care - POLST Patient has POLST: No Pain: Pain unchanged, Location (right ankle; had further injury "turned" it; better this week) Drowsiness: Mild (1-3) Nausea: None Anxiety: Moderate (4-6) Dyspnea: Mild (1-3) Anorexia: Mild (1-3) (compalins of early satiety) Insomnia: Sleeps well Constipation: Yes, Opoid induced, Managed Feelings of wellbeing/Perceived Quality of Life: Improved (please with report; anxious about changes) Performance Status: Patient remains independent; has been more impacted by progressive fatigue as far as tolerance and motivation - Palliative Care Discussion: Surrogate decision maker-brother Andrew Marin II [phone]. Patient has not want to proceed on any other advanced directives up to this point. When revisited today, most important "business" for EOL is will to designate legacy / belongings to Bobby. Fidel. this is easily done, can get forms without environmental safety specialist, if this is important to him, would recommend making this a goal. His goal is " to live for as long as he can", did agree we are hoping for the best with him, and with his good news this is something to celebrate, but still if the news had been otherwise, what is important to him right now. Is wanting to go visit cousins in [facility], discussed some of the barriers regarding this. Patient easily overwhelmed with his anxiety and financial stressors, encouraged to break it down. Results - Lab Results Lab results reviewed: Yes Impression and Recommendations - Palliative Care Impression: This is a 66 year old gentleman with metastatic colon cancer to lung and liver, current scans show no progression of disease. Anxious about "changing what's working up", will be changing to oral therapy, reviewed my concerns relating to patient's ongoing struggle with medication adherence. Recommendations/Counseling Done: 1.GERD. Had not started Lansoprazole because of inst. to take on empty stomach, reviewed best to take it at all, will put in medisets. 2. Acute on chronic right ankle pain. Did "turn" ankle with activity, swelling and pain improved. Recommended to return to physical therapy, has not followed up but reports planning to. Rx provided for oxycodone 5 mg tabs # 60, reviewed safe storage and use. 3. Depression, currently managed. Symptoms reviewed, counseling provided, feels currently doing okay, but does get overwhelmed with stressors and anxiety. 4. Diarrhea alt. with constipation. Using medications appropriately, worried about new regimen and impact. 5. Medication adherence. Reviewed importance with new oral chemotherapy need to set strict regimen with reminders, is using mediset per request. 6. Advanced care planning. Set goal of completing Will. Time Spent: 30 minutes with greater than 50% done in counseling for depression/anxiety and medication adherence.
== END 2017-02-02 13:00 | disposition home or self-care (01) ==
LOC: PC 12:59
PROVIDERS: ATTEND Nurse Practitioner Adult Health
DX: Z51.5 Encounter for palliative care (principal); K21.9 Gastro-esophageal reflux disease without esophagitis; M25.571 Pain in right ankle and joints of right foot; F32.9 Major depressive disorder, single episode, unspecified; R19.7 Diarrhea, unspecified; K59.00 Constipation, unspecified; C78.7 Secondary malignant neoplasm of liver and intrahepatic bile duct; C78.00 Secondary malignant neoplasm of unspecified lung; Z79.891 Long term (current) use of opiate analgesic; R53.1 Weakness; K02.9 Dental caries, unspecified; R06.09 Other forms of dyspnea; R05 Cough; F41.9 Anxiety disorder, unspecified; D64.9 Anemia, unspecified; R68.81 Early satiety
CPT/HCPCS: 99214

== ENCOUNTER 2017-05-08 22:49 | Outpatient (CLI) | payer MEDICAID | END 2017-05-08 22:50 | disposition critical access hospital (66) | LOC: EMS 22:49 | PROVIDERS: ATTEND Surgery | DX: R42 Dizziness and giddiness (principal) | CPT/HCPCS: A0425; A0427 ==

== ENCOUNTER 2017-05-08 23:21 | Observation (INO) | payer MEDICAID ==
--- NOTE | 2017-05-08 23:50 | ED Physician Documentation ---
PD HPI SYNCOPE - Stated complaint Stated Complaint: NEAR SYNCOPE - Chief complaint Chief Complaint: Neuro - History obtained from History obtained from: Patient - History of Present Illness Witnessed: Witnessed Timing - onset: How many hours ago (1), Today Duration: Minutes Preceding symptoms: Light headed, Generalized weakness. No: Headache, Chest pain (but some pressure feeling, nausea), Palpitations, Diaphoresis, Abdominal pain Associated symptoms: No: Seizure, Headache Contributing factors: Recent med change (had resumed chemo med orally BID 5 days ago, but had taken it 2 months ago without symptoms.). No: Decreased PO intake, Just stood up (occurred while sitting in chair. Had eaten shortly before , walked into room and sat down and was sitting for awhile when felt abrupt onset lightheadedness and almost fainted.) Injury occurred: No: Fell, Head injury Similar symptoms before: Has not had sx before Recently seen: Clinic ([facility] for chemo) Review of Systems Constitutional: denies: Fever, Chills Nose: denies: Rhinorrhea / runny nose, Congestion Throat: denies: Sore throat Cardiac: denies: Chest pain / pressure, Palpitations Respiratory: denies: Dyspnea, Cough, Wheezing GI: reports: Nausea. denies: Abdominal Pain, Vomiting, Diarrhea : denies: Dysuria, Frequency Skin: denies: Rash Musculoskeletal: denies: Neck pain, Back pain Neurologic: reports: Generalized weakness, Near syncope. denies: Focal weakness , Numbness, Altered mental status, Headache Endocrine: denies: Weight loss Immunocompromised: reports: Chemotherapy. denies: Immunocompromised PD PAST MEDICAL HISTORY - Past Medical History Cardiovascular: Hypertension Respiratory: Shortness of breath, Other Neuro: None Endocrine/Autoimmune: None GI: Ulcers, Other : Kidney stones HEENT: None Psych: Depression, Anxiety, Panic attacks Musculoskeletal: Osteoarthritis, Other Derm: None - Past Surgical History Past Surgical History: Yes General: Bowel surgery, Liver surgery, Colonoscopy, Other Ortho: Other HEENT: Tonsil/Adenoidectomy - Present Medications Home Medications: Ambulatory Orders Medication Instructions Recorded Confirmed Lisinopril 20 mg PO DAILY 03/08/13 05/09/17 Diphenoxylate HCl/Atropine 2.5 mg PO QID 12/24/14 05/09/17 [Lomotil 2.5-0.025 mg Tablet] Ondansetron [Ondansetron Odt] 1 tab ORAL Q8H PRN 11/06/15 05/09/17 Prochlorperazine Maleate 10 mg PO Q6H PRN 11/06/15 05/09/17 [Compazine] LORazepam [Ativan] 0.5 mg PO Q6HR PRN 03/23/16 05/09/17 Loperamide [Imodium] 2 mg PO QID PRN 05/20/16 05/09/17 Sertraline [Zoloft] 50 mg PO DAILY 08/26/16 05/09/17 Hydrocodone/Acetaminophen [Vicodin 1 mg PO BID PRN 03/15/17 05/09/17 5-300 mg Tablet] Zolpidem [Ambien] 5 mg PO RTQPM PRN 03/15/17 05/09/17 Capecitabine 1 tab PO DAILY 05/09/17 05/09/17 Docusate Sodium 250Mg Capsule 1 tab PO DAILY 05/09/17 05/09/17 [Colace 250Mg Capsule] Senna [Senokot] 1 tab PO DAILY 05/09/17 05/09/17 - Allergies Allergies/Adverse Reactions: Allergies Allergy/AdvReac Type Severity Reaction Status Date / Time nitrous oxide [Nitrous Oxide] AdvReac Hallucinati Verified 05/08/17 23:34 ons tramadol AdvReac Nausea Verified 05/08/17 23:34 - Social History Does the pt smoke?: No Smoking Status: Never smoker Does the pt drink ETOH?: Yes Does the pt have substance abuse?: Yes - Family History Family history: denies: CAD, Sudden - Immunizations Immunizations are current?: No Immunizations: TDAP >10years/unknown - POLST Patient has POLST: No PD ED PE NORMAL - Vitals Vital signs reviewed: Yes (orthostatics normal) - General General: Alert and oriented X 3, No acute distress, Well developed/nourished - HEENT HEENT: Moist mucous membranes, Pharynx benign - Neck Neck: Supple, no meningeal sign, No adenopathy, No JVD - Cardiac Cardiac: RRR, No murmur - Respiratory Respiratory: Clear bilaterally - Abdomen Abdomen: Normal bowel sounds, Soft, No organomegaly - Male Male : Deferred - Rectal Rectal: Deferred - Back Back: No CVA TTP - Derm Derm: Normal color, Warm and dry - Extremities Extremities: No deformity, Normal ROM s pain, No calf tenderness / cord - Neuro Neuro: Alert and oriented X 3, 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, No motor deficit, No sensory deficit, Normal speech - Psych Psych: Normal mood, Normal affect Results - Vitals Vitals: Vital Signs - 24 hr 05/08/17 05/09/17 05/09/17 23:31 00:46 02:00 Temperature 37.1 C Heart Rate 71 75 Heart Rate [ 73 Sitting] Heart Rate [ 79 Standing] Heart Rate [ 70 Supine] Respiratory 16 18 Rate Blood Pressure 186/102 H 136/82 H Blood Pressure 167/101 H [Sitting] Blood Pressure 165/103 H [Standing] Blood Pressure 167/90 H [Supine] O2 Saturation 95 96 Oxygen O2 Source Room air - EKG (time done) 23:31 Rate: Rate (enter#) (69) Rhythm: NSR [place]: Normal Intervals: Normal [place] QRS: Normal Ischemia: Normal ST segments. No: ST elevation c/w ischemia, ST depression - Labs Labs: Laboratory Tests 05/08/17 05/08/17 05/08/17 23:55 23:55 23:55 WBC 9.8 RBC 4.08 L Hgb 13.6 L Hct 40.0 L MCV 98.2 H MCH 33.4 H MCHC 34.0 RDW 15.8 H Plt Count 187 MPV 9.2 Neut # 6.9 H Lymph # 1.8 [place] # 0.9 Eos # 0.2 Baso # 0.0 Absolute Nucleated RBC 0.00 Nucleated RBC % 0.0 Sodium 138 Potassium 3.9 Chloride 108 Carbon Dioxide 23 Anion Gap 7.0 BUN 21 H Creatinine 0.7 Estimated GFR (MDRD) 114 Glucose 105 H Calcium 9.5 Magnesium 2.1 Total Bilirubin 0.4 AST 22 ALT 22 Alkaline Phosphatase 73 Troponin I 0.09 Total Protein 7.2 Albumin 4.1 Globulin 3.1 Albumin/Globulin Ratio 1.3 Lipase 15 L 05/08/17 23:55 WBC RBC Hgb Hct MCV MCH MCHC RDW Plt Count MPV Neut # Lymph # [place] # Eos # Baso # Absolute Nucleated RBC Nucleated RBC % Sodium Potassium Chloride Carbon Dioxide Anion Gap BUN Creatinine Estimated GFR (MDRD) Glucose Calcium Magnesium 2.2 Total Bilirubin AST ALT Alkaline Phosphatase Troponin I Total Protein Albumin Globulin Albumin/Globulin Ratio Lipase PD MEDICAL DECISION MAKING - ED course Complexity details: reviewed results, re-evaluated patient, considered differential (concerning is the rest and intermittent character of the lightheadedness episodes and the near syncope this evening. Consider cardiac function/rhythm as issue. ECG and monitor are good here, but troponin is in indeterminant range. ), d/w patient Departure - Departure Disposition: ED Place in Observation Clinical Impression: Syncope, near, Chest pain, rule out acute myocardial infarction Colon cancer Qualifiers: Colon location: unspecified part of colon Qualified Code(s): C18.9 - Malignant neoplasm of colon, unspecified Condition: Stable Record reviewed to determine appropriate education?: Yes Discharge Date/Time: 05/09/17 02:40
[2017-05-09] MEDS ORDERED: SODIUM CHLORIDE 0.9% 1,000 ML IV ONE (00:16)
[2017-05-09] MEDS ORDERED: ONDANSETRON 4 MG/2 ML VIAL IVP STA (00:16)
[2017-05-09] MEDS ORDERED: ONDANSETRON 4 MG/2 ML VIAL ONE (00:29)
[2017-05-09 00:52] LABS: BASOPHILS % (AUTO) 0.3 %; EOSINOPHILS # (AUTO) 0.2 10^3/uL (0.0-0.7); EOSINOPHILS % (AUTO) 1.7 %; HGB - HEMOGLOBIN 13.6 g/dL (14.0-18.0); LYMPHOCYTES # (AUTO) 1.8 10^3/uL (1.5-3.5); LYMPHOCYTES % (AUTO) 18.3 %; MEAN CORPUSCULAR HEMOGLOBIN 33.4 pg (27.0-31.0); MEAN CORPUSCULAR VOLUME 98.2 fL (80.0-94.0); MEAN PLATELET VOLUME 9.2 fL (7.4-11.4); MONOCYTES # (AUTO) 0.9 10^3/uL (0.0-1.0); NEUTROPHILS # (AUTO) 6.9 10^3/uL (1.5-6.6); NEUTROPHILS % (AUTO) 70.7 %; PLT - PLATELET COUNT 187 10^3/uL (130-450); RED BLOOD COUNT 4.08 10^6/uL (4.70-6.10); RED CELL DISTRIBUTION WIDTH 15.8 % (12.0-15.0); WHITE BLOOD COUNT 9.8 x10^3/uL (4.8-10.8)
[2017-05-09 00:58] LABS: ALBUMIN 4.1 g/dL (3.2-5.5); ALBUMIN/GLOBULIN RATIO 1.3 (1.0-2.2); BILIRUBIN,TOTAL 0.4 mg/dL (0.2-1.0); CALCIUM 9.5 mg/dL (8.5-10.3); CREATININE 0.7 mg/dL (0.6-1.2); MAGNESIUM 2.1 mg/dL (1.7-2.8); TOTAL PROTEIN 7.2 g/dL (6.7-8.2)
[2017-05-09] MEDS ORDERED: LORazepam 2 MG/ML SYRINGE IVP STA (01:33)
[2017-05-09] MEDS ORDERED: LORazepam 2 MG/ML SYRINGE ONE (01:47)
[2017-05-09] MEDS ORDERED: LOPERAMIDE 2 MG CAPSULE PO PRN (02:17)
[2017-05-09] MEDS ORDERED: LORazepam 0.5 MG TABLET PO PRN (02:17)
[2017-05-09] MEDS ORDERED: FLUTICASONE NASAL SPRAY NAS PRN (02:17)
[2017-05-09] MEDS ORDERED: HYDROcod/ACETAM 10 MG/325 MG TABLET PO PRN (02:18)
[2017-05-09] MEDS ORDERED: ZOLPIDEM 5 MG TABLET PO PRN (02:18)
[2017-05-09] MEDS ORDERED: IPRATROPIUM/ALBUTEROL 3 ML NEB INH PRN (02:18)
[2017-05-09] MEDS ORDERED: PROMETHAZINE 25 MG/1 ML VIAL IM PRN (02:18)
[2017-05-09] MEDS ORDERED: ONDANSETRON ODT 4 MG TABLET TL PRN (02:18)
[2017-05-09] MEDS ORDERED: PROCHLORPERAZINE 10 MG/2 ML VIAL IVP PRN (02:18)
[2017-05-09] MEDS ORDERED: ONDANSETRON 4 MG/2 ML VIAL IVP PRN (02:18)
[2017-05-09] MEDS ORDERED: SODIUM CHLORIDE FLUSH 0.9% 10 ML SYRINGE IVP PRN (02:18)
[2017-05-09] MEDS ORDERED: ACETAMINOPHEN 325 MG TABLET PO PRN (02:18)
[2017-05-09] MEDS: SODIUM CHLORIDE 0.9% 1,000 ML IV SCH ×2 (03:45→12:48)
--- NOTE | 2017-05-09 04:38 | HISTORY & PHYSICAL EXAMINATION ---
Chief Complaint - Chief Complaint Chief Complaint: Dizziness and chest pain History of Present Illness - Admitted From Admitted From:: Emergency department - History Obtained From Records Reviewed: Yes History obtained from: Patient Exam Limitations: None - History of Present Illness HPI Comment/Other: Patient is a very pleasant 66-year-old gentleman with an unfortunate past medical history significant for stage II sigmoid colon cancer, status post colectomy in 08/2010 with recurrence of colon cancer in 09/2014 with metastasis to the lungs and liver status post chemotherapy with induction of FOLFOX6/ Avastin 6 cycles, liver mass resection, adjuvant FOLFOX6/Avastin 4 cycles, maintenance 5-FU/Avastin and maintenance Xeloda/Avastin who is currently on maintenance therapy and also has history of hypertension, anxiety, GERD and osteoarthritis and presents to the emergency department today with a chief complaint of dizziness and chest pain. The patient states that he was in his normal state of health until about 6 weeks ago when he restarted his maintenance chemotherapy regimen with Xeloda and he knew he had experienced severe diarrhea from it in the past therefore he had prepared with an antidiarrhea regimen. This time however along with the diarrhea he also experienced severe peripheral neuropathy and peeling of the skin on his hands as well as sores in his mouth. The patient was in [facility] at that time and when he returned back to see his oncologist the treatment was held. The patient was off treatment for 3 weeks and then restarted at a lower dose just this past week. The patient states that since starting the most recent regimen he is only had some mild diarrhea which has been well controlled but otherwise he had not had any symptoms until yesterday. He states that yesterday he began feeling lightheaded and he described this as a mild lightheadedness. He states that today all of a sudden the lightheadedness became severe and he felt as though he could pass out. He states that when he had this lightheadedness he also felt chest pressure. He states that the chest pressure felt like somebody sitting on his chest. He states that it was located in the center of his chest without any radiation. He states that it improved with belching and he thought that it may just be some acid reflux. The patient denies any nausea or vomiting but he has been having diarrhea which is less than his normal. The patient states that the symptoms of lightheadedness have persisted since yesterday but became severe today and scared him so he called his friend. His friend after listening to what the patient had to say advised the patient to come into the emergency department. On arrival to the emergency department the patient's symptoms were much improved. The patient otherwise denies any headaches, blurred vision, runny nose, sore throat, nasal congestion, difficulty swallowing, neck pain, shortness of breath , orthopnea, PND, increased lower extremity swelling, diaphoresis, nausea, vomiting, abdominal pain, constipation, urinary urgency, urinary frequency, dysuria, peripheral neuropathy, joint swelling, muscle aches, back pain, neck stiffness, changes in his appetite, recent unintentional weight loss, night sweats, fevers, chills, or any focal neurologic deficits. On presentation to the emergency department the patient was afebrile and slightly hypertensive with no respiratory distress. The patient's orthostatics were negative. The patient underwent routine lab work which was all within normal limits aside from a troponin of 0.09. The patient had no previous troponin for comparison. The patient underwent an EKG which showed a normal sinus rhythm without any ST elevations or ischemic changes. The patient did not undergo any further imaging. Given that the patient had this episode of lightheadedness associated with chest pressure and his troponin was not completely negative it was felt that it would be best to observe the patient overnight on telemetry and get serial troponins as well as an echocardiogram to completely rule out a cardiac arrhythmia or ACS. History - Past Medical History Cardiovascular: reports: Hypertension Respiratory: reports: Shortness of breath, Other Neuro: reports: None Endocrine/Autoimmune: reports: None GI: reports: Ulcers, Diverticulitis, Other (Colon cancer with metastasis to the lungs and liver) : reports: Kidney stones HEENT: reports: None Psych: reports: Depression, Anxiety, Panic attacks Musculoskeletal: reports: Osteoarthritis, Other Derm: reports: None MRSA Hx?: No - Past Surgical History General: reports: Bowel surgery, Liver surgery, Colonoscopy, Other Ortho: reports: Other HEENT: reports: Tonsil/Adenoidectomy - Family & Social History Family History: Mother: Cancer (Father had leukemia, Mother had lung cancer), Father: , Cancer, CVA/TIA, Brother: Hypertension Living arrangement: At home Living Situation: Alone Social History Notes: The patient lives alone in [place]. 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 He is not . Patient is a non-smoker he quit about 10 years ago prior to that he smoked half a pack to a pack a day for about 15 years. The patient occasionally drinks wine and he denies any illicit drug use. - POLST Patient has POLST: No POLST Status: Full Code Meds/Allgy - Home Medications Home Medications: Ambulatory Orders Medication Instructions Recorded Confirmed Lisinopril 20 mg PO DAILY 03/08/13 05/09/17 Diphenoxylate HCl/Atropine 2.5 mg PO QID 12/24/14 05/09/17 [Lomotil 2.5-0.025 mg Tablet] Ondansetron [Ondansetron Odt] 1 tab ORAL Q8H PRN 11/06/15 05/09/17 Prochlorperazine Maleate 10 mg PO Q6H PRN 11/06/15 05/09/17 [Compazine] LORazepam [Ativan] 0.5 mg PO Q6HR PRN 03/23/16 05/09/17 Loperamide [Imodium] 2 mg PO QID PRN 05/20/16 05/09/17 Sertraline [Zoloft] 50 mg PO DAILY 08/26/16 05/09/17 Hydrocodone/Acetaminophen [Vicodin 1 mg PO BID PRN 03/15/17 05/09/17 5-300 mg Tablet] Zolpidem [Ambien] 5 mg PO RTQPM PRN 03/15/17 05/09/17 Capecitabine 1 tab PO DAILY 05/09/17 05/09/17 Docusate Sodium 250Mg Capsule 1 tab PO DAILY 05/09/17 05/09/17 [Colace 250Mg Capsule] Senna [Senokot] 1 tab PO DAILY 05/09/17 05/09/17 - Allergies Allergies/Adverse Reactions: Allergies Allergy/AdvReac Type Severity Reaction Status Date / Time nitrous oxide [Nitrous Oxide] AdvReac Hallucinati Verified 05/08/17 23:34 ons tramadol AdvReac Nausea Verified 05/08/17 23:34 Review of Systems - Other Findings Other Findings: A comprehensive review of systems was performed the pertinent positives and negatives are stated above in the HPI and the remainder of the review of systems is negative. Exam - Vital Signs Vital Signs: Vital Signs x48h Temp Pulse Pulse Resp BP BP Pulse Ox 05/09/17 03:10 36.4 C L 72 16 159/88 H 94 05/09/17 02:43 74 16 157/90 H 98 Conclusion/Plan - Problem List (1) Chest pain Conclusion/Plan: The patient presented with chest pressure during an acute episode of severe dizziness. The patient stated that the chest pressure was in the center of his chest and felt as though someone was sitting on his chest. There was no radiation, no shortness of air, no palpitations, no nausea or diaphoresis. This occurred at rest. Patient had some relief with belching. The patient's EKG was normal. The patient's troponin was not completely negative as it was 0.09. Although most likely the patient's chest pressure is secondary to indigestion or acid reflux given that the patient does have history of hypertension and there was associated dizziness with a mildly abnormal troponin and no previous troponin for comparison it is felt that it would be most appropriate for patient to be placed in observation for rule out of acute coronary syndrome. Plan: Serial troponins x3 Telemetry monitoring Echo (2) Dizziness Conclusion/Plan: Patient's dizziness started yesterday and although it could be a side effect from his chemotherapy medications Xeloda which was restarted 5 days ago given that the symptoms did not come on until later in the week after he had already started this is less likely. Although given the number of side effects that patient has had from Xeloda I would not completely rule this out. The patient did have some chest pressure with the episode of severe dizziness and near syncope. The patient has been having diarrhea but did not have any positive orthostatics and does not have any evidence of dehydration on laboratory work. He does however appear to be slightly dry. The patient's dizziness may be secondary to side effect from Xeloda or it could be secondary to cardiac arrhythmia or valvular heart disease or acute coronary syndrome or could be secondary to dehydration. Plan: Give patient IV fluids Rule out acute coronary syndrome Echocardiogram Monitor on telemetry (3) Hypertension Conclusion/Plan: The patient has history of hypertension and is on lisinopril at home. On presentation to the emergency department the patient's blood pressure was elevated however after some time it normalized. This may have just been from the stress of being in the emergency department. Plan: Patient will be placed on his home dose of lisinopril We will monitor patient's blood pressure We will titrate antihypertensive medications as needed. Qualifiers: Hypertension type: essential hypertension Qualified Code(s): I10 - Essential (primary) hypertension (4) Colon cancer Conclusion/Plan: The patient has metastatic colon cancer with metastases to the liver and lungs. He is currently on maintenance treatment with Xeloda. The patient will be continued on his home dose of Xeloda he will take his own medication. Qualifiers: Colon location: unspecified part of colon Qualified Code(s): C18.9 - Malignant neoplasm of colon, unspecified (5) Anxiety Conclusion/Plan: The patient does have history of anxiety and was quite anxious in the emergency department. The patient will be continued on his home dose of lorazepam and Zoloft. We will continue to monitor patient for any further anxiety and will give him Ativan as needed. - Lab Results Lab results reviewed: Yes Fish Bones: 05/08/17 23:55 05/08/17 23:55 Other Lab Results: Laboratory Results WBC 9.8 x10^3/uL (4.8-10.8) 05/08/17 23:55 RBC 4.08 10^6/uL (4.70-6.10) L 05/08/17 23:55 Hgb 13.6 g/dL (14.0-18.0) L 05/08/17 23:55 Hct 40.0 % (42.0-52.0) L 05/08/17 23:55 MCV 98.2 fL (80.0-94.0) H 05/08/17 23:55 MCH 33.4 pg (27.0-31.0) H 05/08/17 23:55 MCHC 34.0 g/dL (32.0-36.0) 05/08/17 23:55 RDW 15.8 % (12.0-15.0) H 05/08/17 23:55 Plt Count 187 10^3/uL (130-450) 05/08/17 23:55 MPV 9.2 fL (7.4-11.4) 05/08/17 23:55 Neut # 6.9 10^3/uL (1.5-6.6) H 05/08/17 23:55 Lymph # 1.8 10^3/uL (1.5-3.5) 05/08/17 23:55 [place] # 0.9 10^3/uL (0.0-1.0) 05/08/17 23:55 Eos # 0.2 10^3/uL (0.0-0.7) 05/08/17 23:55 Baso # 0.0 10^3/uL (0.0-0.1) 05/08/17 23:55 Absolute Nucleated RBC 0.00 x10^3/uL 05/08/17 23:55 Nucleated RBC % 0.0 /100WBC 05/08/17 23:55 Sodium 138 mmol/L (135-145) 05/08/17 23:55 Potassium 3.9 mmol/L (3.5-5.0) 05/08/17 23:55 Chloride 108 mmol/L (101-111) 05/08/17 23:55 Carbon Dioxide 23 mmol/L (21-32) 05/08/17 23:55 Anion Gap 7.0 (6-13) 05/08/17 23:55 BUN 21 mg/dL (6-20) H 05/08/17 23:55 Creatinine 0.7 mg/dL (0.6-1.2) 05/08/17 23:55 Estimated GFR (MDRD) 114 (>89) 05/08/17 23:55 Glucose 105 mg/dL (70-100) H 05/08/17 23:55 Calcium 9.5 mg/dL (8.5-10.3) 05/08/17 23:55 Magnesium 2.2 mg/dL (1.7-2.8) 05/08/17 23:55 Total Bilirubin 0.4 mg/dL (0.2-1.0) 05/08/17 23:55 AST 22 IU/L (10-42) 05/08/17 23:55 ALT 22 IU/L (10-60) 05/08/17 23:55 Alkaline Phosphatase 73 IU/L (42-121) 05/08/17 23:55 Troponin I 0.09 ng/mL (<0.49) 05/08/17 23:55 Total Protein 7.2 g/dL (6.7-8.2) 05/08/17 23:55 Albumin 4.1 g/dL (3.2-5.5) 05/08/17 23:55 Globulin 3.1 g/dL (2.1-4.2) 05/08/17 23:55 Albumin/Globulin Ratio 1.3 (1.0-2.2) 05/08/17 23:55 Lipase 15 U/L (22-51) L 05/08/17 23:55 - EKG Results EKG Interpreted Independently: Yes EKG Findings: Sinus rhythm without any ST elevations or ischemic changes Issues/Core Measures - Anticipated LOS Anticipated Stay Length: 2 or more midnights - DVT/VTE - Prophylaxis VTE/DVT Prophylaxis med ordered at admit?: Yes
[2017-05-09] MEDS: HYDROcod/ACETAM 5/325 MG TABLET PO PRN ×2 (05:06→15:53)
[2017-05-09] MEDS ORDERED: PANTOPRAZOLE 40 MG TABLET PO SCH (07:00)
[2017-05-09] MEDS: SODIUM CHLORIDE FLUSH 0.9% 10 ML SYRINGE IVP SCH ×2 (07:03→15:37)
[2017-05-09 07:23] LABS: BASOPHILS # (AUTO) 0.1 10^3/uL (0.0-0.1); BASOPHILS % (AUTO) 0.7 %; EOSINOPHILS # (AUTO) 0.2 10^3/uL (0.0-0.7); EOSINOPHILS % (AUTO) 2.9 %; HGB - HEMOGLOBIN 12.4 g/dL (14.0-18.0); LYMPHOCYTES # (AUTO) 2.1 10^3/uL (1.5-3.5); LYMPHOCYTES % (AUTO) 29.6 %; MEAN CORPUSCULAR HEMOGLOBIN 32.8 pg (27.0-31.0); MEAN CORPUSCULAR HGB CONC 32.7 g/dL (32.0-36.0); MEAN CORPUSCULAR VOLUME 100.1 fL (80.0-94.0); MEAN PLATELET VOLUME 9.1 fL (7.4-11.4); MONOCYTES # (AUTO) 0.8 10^3/uL (0.0-1.0); MONOCYTES % (AUTO) 10.6 %; NEUTROPHILS % (AUTO) 56.2 %; PLT - PLATELET COUNT 176 10^3/uL (130-450); RED BLOOD COUNT 3.78 10^6/uL (4.70-6.10); RED CELL DISTRIBUTION WIDTH 16.2 % (12.0-15.0); WHITE BLOOD COUNT 7.1 x10^3/uL (4.8-10.8)
[2017-05-09 07:44] LABS: ALBUMIN 3.4 g/dL (3.2-5.5); ALBUMIN/GLOBULIN RATIO 1.3 (1.0-2.2); ALKALINE PHOSPHATASE 55 IU/L (42-121); ALT ALANINE AMINOTRANSFERASE 21 IU/L (10-60); AST ASPARTATE AMINOTRANSFERASE 19 IU/L (10-42); BILIRUBIN,TOTAL 0.3 mg/dL (0.2-1.0); BUN - BLOOD UREA NITROGEN 18 mg/dL (6-20); CALCIUM 8.6 mg/dL (8.5-10.3); CARBON DIOXIDE - CO2 22 mmol/L (21-32); CHLORIDE 110 mmol/L (101-111); CHOL/HDL RATIO 4.2 (<5.0); CHOLESTEROL 186 mg/dL; CREATININE 0.7 mg/dL (0.6-1.2); GFR - MDRD 114 (>89); GLUCOSE 95 mg/dL (70-100); HDL CHOLESTEROL 44 mg/dL; LDL CHOLESTEROL,CALCULATED 129 mg/dL; LDL/HDL RATIO 2.9 (<3.6); SODIUM 139 mmol/L (135-145); TOTAL PROTEIN 6.1 g/dL (6.7-8.2); VLDL CHOLESTEROL 13 mg/dL
[2017-05-09] MEDS ORDERED: FERROUS SULFATE 325 MG TABLET PO SCH (08:00)
[2017-05-09] MEDS ORDERED: LACTOB/S.THERMOPHL/BIFIDO CAPSULE PO SCH (08:00)
[2017-05-09] MEDS ORDERED: LACTOBACILLUS ACIDOPHILUS PO SCH (09:00)
[2017-05-09] MEDS ORDERED: LISINOPRIL 5 MG TABLET PO SCH (09:00)
[2017-05-09] MEDS ORDERED: POLYETHYLENE GLYCOL 3350 17 GM PACKET PO SCH (09:00)
[2017-05-09] MEDS ORDERED: MEGESTROL 400 MG/10 ML UDC PO SCH (09:00)
[2017-05-09] MEDS ORDERED: ENOXAPARIN 40 MG/0.4 ML SYRINGE SUBQ SCH (09:00)
[2017-05-09] MEDS ORDERED: MEGESTROL ACETATE 800 MG PO SCH (09:00)
[2017-05-09] MEDS ORDERED: IRON SULFATE ORAL SCH (09:00)
[2017-05-09] MEDS ORDERED: SERTRALINE 50 MG TABLET PO SCH (09:00)
--- NOTE | 2017-05-09 14:55 | Ultrasound Preliminary Report ---
Exam: US CAROTID DOPPLER COMPLETE IMPRESSION: 1. Mild plaque in the bilateral carotid systems with estimated degree of stenosis less than 50%. 2. Positive antegrade flow in the vertebral arteries. Validated velocity measurements with angiographic measurements and velocity criteria are extrapolated from diameter data as defined by the Society of Radiologists in Ultrasound Consensus Conference Radi ology 2003; 229;340-346. RADIA SITE ID: [id number]
--- NOTE | 2017-05-09 15:10 | Ultrasound Report ---
EXAM: CAROTID DOPPLER ULTRASOUND EXAM DATE: 05/09/2017 01:59 PM. CLINICAL HISTORY: Dizziness. COMPARISON: None. TECHNIQUE: Real-time sonographic vascular imaging was performed by the director operations through the [place] d arterial system with a linear transducer utilizing color-flow, Doppler flow and spectral analysis. Multiple service liaison representative static images were saved for review. FINDINGS: Right: RCCA Prox: PSV 90.9 cm/sec. RCCA Dist: PSV 97.4 cm/sec, EDV 36.2 cm/sec. RECA: PSV 118.7 cm/sec. R Bulb: PSV 111.9 cm/sec, EDV 21.6 cm/sec, ICA/CCA ratio 1.2. KELSEY Prox: PSV 125.1 cm/sec, EDV 51.9 cm/sec, ICA/CCA ratio 1.3. KELSEY Mid: PSV 95.2 cm/sec, EDV 33.4 cm/sec, ICA/CCA ratio 1.0. KELSEY Dist: PSV 96.4 cm/sec, EDV 36.5 cm/sec, ICA/CCA ratio 1.0. RVA: PSV 56.9 cm/sec. RVA flow direction: Antegrade. Left: LCCA Prox: PSV 119.7 cm/sec. LCCA Dist: PSV 86.5 cm/sec, EDV 30.1 cm/sec. LECA: PSV 117.4 cm/sec. L Bulb: PSV 77.3 cm/sec, EDV 15.5 cm/sec, ICA/CCA ratio 0.9. LICA Prox: PSV 95.8 cm/sec, EDV 37.1 cm/sec, ICA/CCA ratio 1.1. LICA Mid: PSV 92.7 cm/sec, EDV 40.9 cm/sec, ICA/CCA ratio 1.1. LICA Dist: PSV 92.7 cm/sec, EDV 41.2 cm/sec, ICA/CCA ratio 1.1. LVA: PSV 57.9 cm/sec. LVA flow direction: Antegrade. Other: None. IMPRESSION: 1. Mild plaque in the bilateral carotid artery systems with estimated degree of stenosis less than 50 %. 2. Positive antegrade flow in the vertebral arteries. Validated velocity measurements with angiographic measurements and velocity criteria are extrapolated from diameter data as defined by the Society of Radiologists in Ultrasound Consensus Conference Radi ology 2003; 229;340-346. RADIA Referring Provider Line: [phone] SITE ID: [id number]
--- NOTE | 2017-05-09 18:40 | Discharge Plan ---
Discharge Plan Disposition: 01 Home, Self Care Condition: Stable Diet: Regular Activity Restrictions: No Restrictions Shower Restrictions: No Driving Restrictions: No Instruction Topics: Angina, Syncope Causes Additional Instructions or Follow Up instructions: Please see your PCP and Oncologist for further testing regarding the symptoms that brought you to the Emergency Room. No Smoking: If you smoke, Please STOP! Call for help.
[2017-05-09 18:51] VITALS: BP 160/86
--- NOTE | 2017-06-13 22:17 | DISCHARGE SUMMARY ---
DATE OF SERVICE: 06/12/2017 Physician: Anat Hurtado MD DATE OF ADMISSION: 05/09/2017 DATE OF DISCHARGE: 05/09/2017 HISTORY OF PRESENT ILLNESS: This is a 66-year-old white male with a history of colon cancer with colectomy and then recurrence of the cancer 2 years ago with metastases to the liver and lung, who is currently on chemotherapy and had a liver mass resection. He also has a history of hypertension, GERD, arthritis and anxiety. Patient presented after an episode of lightheadedness that occurred after having some diarrhea, which he typically does get after a course of chemotherapy. This episode of lightheadedness was longer lasting and more severe in that he had near-syncope and there was chest pressure. But the chest pressure was like his "reflux" and belching improved it. The patient came to the emergency room for evaluation. He did not have orthostasis. He did have an abnormal troponin value and therefore was placed in observation for further troponin testing and carotid and echo testing because of the lightheadedness with near-syncope. HOSPITAL COURSE WITH DISCHARGE DIAGNOSES 1. Lightheadedness. It was felt to be due to his diarrhea and probable volume loss. He did not have drops of blood pressure here. He was on IV hydration and antidiarrheal agents. 2. Near syncope with chest pain. The patient had a history of gastroesophageal reflux disease and stated that some of that feeling was similar to previous symptoms. Patient had carotid Dopplers done showing mild bilateral plaque. 3. Vascular disease. Along with troponin checks, which were all 3 elevated in a flat pattern (NOT consistent with an [place]), he also underwent an echo, which showed left ventricular ejection fraction of 70%, moderately increased left atrial size and an ascending aorta that was dilated at 4.3 cm. Management of blood pressure is advised for this finding. 4. Hypertension. Patient was kept on his current blood pressure medications, he ran as high as 160/86 during this hospitalization. 5. Colon cancer with metastases. His chemotherapy gives him expected diarrhea and he was advised to see his primary care doctor and oncologist for further management of this. ALLERGIES 1. NITROUS OXIDE. 2. TRAMADOL. DISCHARGE MEDICATIONS: At the time of discharge are all unchanged from before admission and included 1. Lorazepam. 2. Tylenol p.r.n. 3. Capecitabine. 4. Lomotil. 5. Colace. 6. Murphy. 7. Lisinopril. 8. Imodium. 9. Ondansetron. 10. Compazine. 11. Senokot. 12. Zoloft. 13. Ambien. LABS AND IMAGING: Reviewed and summarized above. CONDITION AT THE TIME OF DISCHARGE: Stable. PHYSICAL EXAMINATION VITAL SIGNS: Blood pressure 160/86, pulse of 71 in sinus rhythm, afebrile, room air saturation 97%. HEENT: Unremarkable with moist oral mucosa. NECK: Supple, no JVD or carotid bruits. CHEST: Clear. HEART: Sounds normal. ABDOMEN: Soft, positive bowel sounds. Legs without edema. NEUROLOGIC: Intact. FOLLOWUP: PCP and oncologist. CODE STATUS: FULL CODE. TIME REQUIRED TO COMPLETE THIS ENTIRE DISCHARGE: 30 minutes. TD: 06/13/2017 08:32 MTDD
== END 2017-05-09 19:00 | disposition home or self-care (01) ==
LOC: EDUNIT# → ED 23:21 → OBS 05-09 02:18
PROVIDERS: ADMIT Internal Medicine; ATTEND Internal Medicine
DX: R55 Syncope and collapse (principal); R07.89 Other chest pain; C18.9 Malignant neoplasm of colon, unspecified; C78.7 Secondary malignant neoplasm of liver and intrahepatic bile duct; C78.00 Secondary malignant neoplasm of unspecified lung; T45.1X5A Adverse effect of antineoplastic and immunosuppressive drugs, initial encounter; K52.1 Toxic gastroenteritis and colitis; F41.9 Anxiety disorder, unspecified; I10 Essential (primary) hypertension; Z87.891 Personal history of nicotine dependence; Z79.899 Other long term (current) drug therapy; Z90.49 Acquired absence of other specified parts of digestive tract; F32.9 Major depressive disorder, single episode, unspecified; K21.9 Gastro-esophageal reflux disease without esophagitis
CPT/HCPCS: 36415; 80053; 80061; 83690; 83735; 83880; 84484; 85025; 93005; 93306; 93880; 96361; 96372; 96374; 96375; 99284; 99285; A9270; G0378; J1650; J2060; 83721

== ENCOUNTER 2017-06-28 12:17 | Outpatient (CLI) | payer MEDICAID ==
--- NOTE | 2017-06-28 21:00 | CONSULTATION NOTE ---
Palliative Care Follow Up - Referral Referring Provider: Dr. Frankie Parker Time of Visit: [id number] Referral setting: [facility] [place] Referral Reason: Anxiety - Information Sources Records reviewed: Previous records reviewed History/Review of Systems obtained from: Patient Exam limitations: No limitations - History of Present Illness Update Brief HPI Update: This is a 66-year-old gentleman with metastatic colon cancer to the liver and lungs. He has most recently been on maintenance chemotherapy of Xeloda and Avastin, unfortunately he has continued to have significant side effects from this. So he has been currently on a break. He was recently seen in the emergency room at the end of April for chest pain and dizziness, reports he has had no further symptoms regarding this. His workup was essentially negative. He is having only occasional bouts of diarrhea, is not needing any antidiarrheals. His skin on his fingertips and feet are healing, though he does report ongoing neuropathies particularly in his hands. These are not painful in origin. I am seeing him today though because he is having severe anxiety. Patient does have underlying anxiety disorder, he has in the past is fairly consistent levels of Valium to manage this, as well as cannabis. He had been titrated off of this several months ago, and has intermittently used Lorazepam. He has been on sertraline long-term at 50 mg, we did increase it at one point in time which he felt he was more symptomatic and was having difficulty been adherent as far as taking it regularly. He reports he has racing thoughts, increased feeling of irritability, unable to sleep, and has impacted his coping as he is not tolerating these symptoms. He reports they have increased over the last several weeks, he had been intermittently using his Lorazepam though admits this did not treat the underlying anxiety but this made him sleep. He does struggle under many stressors, particularly financial, has been on treatment long-term is quite anxious about the final decline, as well as he is responsible and supports a 10-year-old boy Bobby who is his reason for continuing to live. Bobby is with him at this point in time so it does limit her conversation somewhat. 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 from whom he is devoted) Living Situation: Alone Medications/Allergies - Medications Home Medications: Ambulatory Orders Medication Instructions Recorded Confirmed Lisinopril 20 mg PO DAILY 03/08/13 06/28/17 Diphenoxylate HCl/Atropine 2.5 mg PO PRN PRN 12/24/14 06/28/17 [Lomotil 2.5-0.025 mg Tablet] Ondansetron [Ondansetron Odt] 8 mg ORAL Q8H PRN 11/06/15 06/28/17 Prochlorperazine Maleate 5 - 10 mg PO Q6H PRN 11/06/15 06/28/17 [Compazine] Loperamide [Imodium] 4 mg PO PRN PRN 05/20/16 06/28/17 Sertraline [Zoloft] 25 mg PO DAILY 08/26/16 06/28/17 Zolpidem [Ambien] 5 - 10 mg PO QPM PRN 03/15/17 06/28/17 Docusate Sodium 250Mg Capsule 250 mg PO BID PRN 05/09/17 06/28/17 [Colace 250Mg Capsule] HYDROcod/ACETAM 5/325 [[place] 5/325] 1 tab PO Q6HR PRN 05/09/17 06/28/17 Senna [Senokot] 17.2 mg PO BID PRN 05/09/17 06/28/17 busPIRone [Buspar] 7.5 mg PO BID 06/28/17 06/28/17 Albuterol Sulf [Ventolin Hfa 2 puffs INH Q4HR PRN 06/29/17 06/29/17 Inhaler] - Allergies Allergies/Adverse Reactions: Allergies Allergy/AdvReac Type Severity Reaction Status Date / Time nitrous oxide [Nitrous Oxide] AdvReac Hallucinati Verified 05/08/17 23:34 ons tramadol AdvReac Nausea Verified 05/08/17 23:34 Review of Systems - Constitutional Constitutional: reports: Weight stable - Eyes Eyes: reports: Vision loss - Ears, Nose & Throat Ears, Nose & Throat: reports: Hearing loss, Dental decay - Cardiovascular Cardiovascular: reports: Exertional dyspnea, Decr. exercise tolerance. denies: Chest pain - Respiratory Respiratory: reports: SOB with exertion (uses inhaler about 2 times a day) - Gastrointestinal Gastrointestinal: reports: Good appetite. denies: Constipation, Diarrhea, Nausea - Genitourinary Genitourinary: denies: Incontinence - Musculoskeletal Musculoskeletal: reports: Back pain (new "strain" right upper thoracic area about 2-3 days; underlying chronic pain of right ankle) - Integumentary Integumentary: reports: Dryness, Other (SE of chemo on skin resolving) - Neurological Neurological: reports: General weakness, Memory problems - Psychiatric Psychiatric: reports: Depression, Anxiety (escalating over last few weeks). denies: Suicidal - Hematologic/Lymphatic Hematologic/Lymphatic: denies: Recurrent infections - All Other Systems All Other Systems: reports: Reviewed and negative Physical Exam - Vital Signs Pulse Rate: 70 Respiratory Rate: 18 O2 Saturation: 97 (ra @ rest) Blood Pressure: 138/90 - Physical Exam General Appearance: positive: Moderate distress, Anxious Eyes Bilateral: positive: Normal inspection ENT: positive: No signs of dehydration Neck: positive: Trachea midline Cardiovascular: positive: Regular rate & rhythm Respiratory: positive: Diminished throughout. negative: Wheezes, Rales, Rhonchi Abdomen: positive: Soft Skin: positive: Pallor, Dryness. negative: Jaundice Extremities: positive: No pedal edema Neurologic/Psychiatric: positive: Oriented x3, Depressed mood/affect Palliative Care - POLST Patient has POLST: No Pain: Location (new pain back; has no pain medication left; 3/10 currently) Tiredness/Fatigue: Moderate (4-6) (residual fatigue and worsened with insomnia) Drowsiness/Sedation: Mild (1-3) Nausea: None Depression: Moderate (4-6) Anxiety: Severe (7-10) Dyspnea: Moderate (4-6) Anorexia: None Sleep: Sleeps poorly Constipation: No Feelings of wellbeing/Perceived Quality of Life: Fair, Acceptable Performance Status: Patient had completed physical therapy related to his intermittent diarrhea, he had been benefiting from aqua therapy. We did explore considering this again, he is worried about insurance and incurring more cost particularly regarding transportation. He is able to manage his own ADLs, he continues to struggle with memory problems, he is working with speech therapist on his cognitive issues and feels that this has improved somewhat. - Palliative Care Discussion: Limited ability to have conversation regarding his friend Bobby was present for the visit, he is very anxious about his friend Moreno and wanting to help him "remember to take his medications". When discussing medication plan I did express my concern for his adherence as it was twice daily dosing. He does report he continues to struggle but his anxiety has become overwhelming, he is in the waiting pattern as needing to take a break from chemotherapy. The plan is to follow his CEA and rescan in the future. He continues to experience many stressors including related to financial Results - Lab Results Lab results reviewed: Yes Lab and Imaging Results: CEA 2.7 Impression and Recommendations - Palliative Care Impression: This is a 66-year-old gentleman with metastatic colon cancer to the lung and liver. He is currently on a break from his chemotherapy, at this point in time his anxiety disorder has escalated, and is impacting his quality of life significantly as well as his ability to cope. Recommendations/Counseling Done: 1. General anxiety disorder currently uncontrolled. Counseling spent and hesitant to reinitiate benzodiazepines with this patient, will go ahead and try buspirone 7.5 mg BID, Will need to titrate him off his sertraline given risk for serotonin syndrome. Written instructions given to patient to decrease sertraline to 25 mg 1 week and then discontinue. As well as to call me next Wednesday and will titrate accordingly the new medication. It would be a significant stressor for him to pay for transportation again, will agree at this point in time to do this by phone. 2. Depression. This is impacted significantly by his current financial situation as well as his escalating anxiety. Will look at adding antidepressant after finding at the therapeutic dose for his buspirone. Will have medical palliative care renal social worker who has counseled him in the past, make contact and consider further referrals and community. 3. Back Pain. Provided limited refill on hydrocodone 5 mg/325 mg 1 tab every 6 hours # 30. Recommended consider follow up with aqua therapy again, now not having diarrhea, reviewed use of heat and stretching. 4. Advanced care planning. Patient does have DPOA established, still need to further define advanced care directives, and a long-term plan. I suspect patient given our past conversations regarding this will most likely need to address this at the point he has progression of disease. Unable to explore this with Bobby present. On Time Spent: 30 minutes with greater than 50% of this done in counseling regarding his escalating anxiety, depression, and medication adherence
== END 2017-06-28 12:18 | disposition home or self-care (01) ==
LOC: PC 12:17
PROVIDERS: ATTEND Nurse Practitioner Adult Health
DX: Z51.5 Encounter for palliative care (principal); F41.1 Generalized anxiety disorder; F32.9 Major depressive disorder, single episode, unspecified; M54.6 Pain in thoracic spine; C18.9 Malignant neoplasm of colon, unspecified; C78.7 Secondary malignant neoplasm of liver and intrahepatic bile duct; C78.00 Secondary malignant neoplasm of unspecified lung; Z79.899 Other long term (current) drug therapy; G62.9 Polyneuropathy, unspecified; Z79.891 Long term (current) use of opiate analgesic; Z79.51 Long term (current) use of inhaled steroids; R06.09 Other forms of dyspnea; R53.83 Other fatigue
CPT/HCPCS: 99214

== ENCOUNTER 2017-07-19 13:29 | Outpatient (CLI) | payer MEDICAID ==
--- NOTE | 2017-07-19 14:30 | CONSULTATION NOTE ---
Palliative Care Follow Up - Referral Referring Provider: Dr. Frankie Parker Time of Visit: [id number] Referral setting: [facility] [place] Referral Reason: Anxiety/Depression - Information Sources Records reviewed: Previous records reviewed History/Review of Systems obtained from: Patient Exam limitations: No limitations Social History - Living Situation Living arrangement: At home Living Situation: Alone (Patient lives alone, he does frequently though have his young friend Bobby, whom he provide support and oversight similar to fostering, on a regular basis.) Medications/Allergies - Medications Home Medications: Ambulatory Orders Medication Instructions Recorded Confirmed Lisinopril 20 mg PO DAILY 03/08/13 07/19/17 Diphenoxylate HCl/Atropine 2.5 mg PO PRN PRN 12/24/14 07/19/17 [Lomotil 2.5-0.025 mg Tablet] Ondansetron [Ondansetron Odt] 8 mg ORAL Q8H PRN 11/06/15 07/19/17 Prochlorperazine Maleate 5 - 10 mg PO Q6H PRN 11/06/15 07/19/17 [Compazine] Loperamide [Imodium] 4 mg PO DAILY 05/20/16 07/19/17 Zolpidem [Ambien] 5 - 10 mg PO QPM PRN 03/15/17 07/19/17 Docusate Sodium 250Mg Capsule 250 mg PO BID PRN 05/09/17 07/19/17 [Colace 250Mg Capsule] HYDROcod/ACETAM 5/325 [[place] 5/325] 1 tab PO Q6HR PRN 05/09/17 07/19/17 Senna [Senokot] 17.2 mg PO BID PRN 05/09/17 07/19/17 busPIRone [Buspar] 7.5 mg PO BID 06/28/17 07/19/17 Albuterol Sulf [Ventolin Hfa 2 puffs INH Q4HR PRN 06/29/17 07/19/17 Inhaler] - Allergies Allergies/Adverse Reactions: Allergies Allergy/AdvReac Type Severity Reaction Status Date / Time nitrous oxide [Nitrous Oxide] AdvReac Hallucinati Verified 05/08/17 23:34 ons tramadol AdvReac Nausea Verified 05/08/17 23:34 Review of Systems - Constitutional Constitutional: reports: Fatigue, Weight stable (151) - Eyes Eyes: reports: Vision loss, Corrective lenses - Ears, Nose & Throat Ears, Nose & Throat: reports: Postnasal drainage, Dental decay - Cardiovascular Cardiovascular: reports: Decr. exercise tolerance - Respiratory Respiratory: reports: Cough (occasional; not productive), SOB with exertion - Gastrointestinal Gastrointestinal: reports: Early satiety. denies: Constipation, Diarrhea, Rectal bleeding, Nausea, Reflux/heartburn - Genitourinary Genitourinary: denies: Incontinence - Musculoskeletal Musculoskeletal: reports: Back pain (New back pain over the last couple weeks, reports is on the left side, it had exacerbated with a twisting motion. He reports is no better or worse, can move and provide range of motion during visit , reports it mostly bothers him with lifting.Did not tolerate muscle relaxant, is used the hydrocodone with some relief.), Muscle weakness (ready to start PT again for strengthening) - Integumentary Integumentary: reports: Dryness - Neurological Neurological: reports: General weakness, Memory problems (Continues with fairly severe short-term memory problems, has had cognitive therapy with speech, tries to use some of the strategies given but in review has forgotten to take his a.m. meds) - Psychiatric Psychiatric: reports: Depression (Does express feelings of sadness, irritability , and tearfulness.), Anxiety (Patient has long-term general anxiety disorder, has been taking the BuSpar only at bedtime, reports his tremors and anxiety is better but still needs improvement. He reports he is having difficulty sleeping , insurance will not fill his meds as ordered.) - Endocrine Endocrine: reports: Intolerance to cold - Hematologic/Lymphatic Hematologic/Lymphatic: reports: Anemia (improving counts off chemotherapy). denies: Recurrent infections - All Other Systems All Other Systems: reports: Reviewed and negative Physical Exam - Vital Signs Pulse Rate: 77 Respiratory Rate: 18 O2 Saturation: 98 (ra @ rest) Blood Pressure: 145/90 - Physical Exam General Appearance: positive: Alert, Anxious Eyes Bilateral: positive: Conjunctivae nml, No scleral icterus ENT: positive: No signs of dehydration, Other (poor dentition; no oral lesions) Neck: positive: No JVD, Trachea midline Cardiovascular: positive: Regular rate & rhythm Respiratory: positive: Diminished in bases Abdomen: positive: Soft, Nml bowel sounds, Distended Skin: positive: Pallor, Dryness Extremities: positive: No pedal edema Neurologic/Psychiatric: positive: Oriented x3, Other (memory issues continue with STM difficulties) Palliative Care - POLST Patient has POLST: No Pain: Pain unchanged, Location (left back area/ attributes to muscle sprain) Tiredness/Fatigue: Mild (1-3) Drowsiness/Sedation: None Nausea: None Depression: Moderate (4-6) Anxiety: Severe (7-10) Dyspnea: Moderate (4-6) Anorexia: Mild (1-3) Sleep: Variable sleep pattern Constipation: Intermittent constipation Feelings of wellbeing/Perceived Quality of Life: Good, Acceptable, Improved Performance Status: Patient able to attend her own ADLs, does fatigue quite easily and has to pace activities, currently is able to still drive. Would put him at a PPS of 80% - Palliative Care Discussion: Patient continues to suffer from high anxiety, continues to worry about recurrent disease, and the effect on his friend Bobby. Reports if it reoccurs, is continued to fight it. Is aware it is a life limiting illness, but has been doing quite well over the last several months. He does struggle with multiple stressors including psychosocial and financial, has underlying depression anxiety disorder that exacerbates at times as far as his ability to cope. Patient has identified his brother as his DPOAE, he currently continues to be a full code and full treatment at this point in time. Results - Lab Results Lab results reviewed: Yes Impression and Recommendations - Palliative Care Impression: This is a 66-year-old gentleman with metastatic colon cancer to the lung and liver currently on break from chemotherapy. He continues to struggle with his underlying general anxiety disorder and depression, as well as multiple financial stressors. Palliative care to continue to provide support and oversight for symptom management. Recommendations/Counseling Done: 1. General anxiety disorder, patient has not been taking BuSpar as ordered, he is forgot in the daytime dose and only taken in the evening. He has successfully titrated off the sertraline. He reports there is some improvement in his tremulousness and racing thoughts, though still needs further titration. Given patient not taking as ordered, we did agree and counseling regarding strategies to improve a.m. dosing, as well as evaluate effects. 2. Depression. We did discuss in the context of adding an antidepressant, particularly perhaps trazodone at bedtime to assist with sleep as this is adding to his distress. At this point in time, will have patient maximize BuSpar and then add antidepressant. Patient is in agreement with plan. He will notify me though if would like to trial the trazodone sooner. 3. Back pain. Referral to physical therapy has been made, has not scheduled visit yet, I did not tolerate muscle relaxants. He is used using the hydrocodone maybe 1 at bedtime for pain relief, otherwise using heat and does appear to be responding and improving over time. 4. Advanced care planning. Patient continues to express concerns regarding his relationship with Bobby and future impact of his decline. He is working on [employer] work currently, I tried to live in the moment, but does get quite anxious. Currently he is on break from treatment, this adds to his anxiety as well. Will continue to provide palliative care oversight and support. Time Spent: 30 minutes with greater than 50% of this done in counseling regarding anxiety and depression, psychosocial stressors as well as anticipatory guidance
== END 2017-07-19 13:30 | disposition home or self-care (01) ==
LOC: PC 13:29
PROVIDERS: ATTEND Nurse Practitioner Adult Health
DX: Z51.5 Encounter for palliative care (principal); F41.1 Generalized anxiety disorder; F32.9 Major depressive disorder, single episode, unspecified; M54.9 Dorsalgia, unspecified; Z79.891 Long term (current) use of opiate analgesic; Z79.51 Long term (current) use of inhaled steroids; R68.81 Early satiety; M62.81 Muscle weakness (generalized); C18.9 Malignant neoplasm of colon, unspecified; C78.00 Secondary malignant neoplasm of unspecified lung; C78.7 Secondary malignant neoplasm of liver and intrahepatic bile duct; T43.596A Underdosing of other antipsychotics and neuroleptics, initial encounter
CPT/HCPCS: 99214

== ENCOUNTER 2017-09-30 16:08 | Outpatient (CLI) | payer MEDICAID ==
--- NOTE | 2017-10-01 11:36 | XRAY Report ---
THREE-VIEW RIGHT HAND: 09/30/2017 CLINICAL INDICATION: Pain. FINDINGS: AP, lateral, oblique views of the right hand demonstrate osteoarthritic changes of the first carpometacarpal joint and interphalangeal joints. There is no evidence of acute fracture or dislocation. No radiopaque foreign body is seen in the soft tissues. IMPRESSION: OSTEOARTHRITIS. NO EVIDENCE OF FRACTURE. TD: 10/01/2017 11:36
== END 2017-09-30 16:09 | disposition home or self-care (01) ==
LOC: DI.S 16:08
PROVIDERS: ATTEND Family Medicine
DX: M19.041 Primary osteoarthritis, right hand (principal)

== ENCOUNTER 2017-10-18 14:12 | Outpatient (CLI) | payer MEDICAID ==
--- NOTE | 2017-10-18 15:52 | CONSULTATION NOTE ---
Palliative Care Follow Up - Referral Referring Provider: Dr. Frankie Parker Time of Visit: [id number] Referral setting: [facility] [place] Referral Reason: Anxiety/Depression/Colon Ca - Information Sources Records reviewed: RN notes reviewed, Previous records reviewed History/Review of Systems obtained from: Patient Exam limitations: No limitations - History of Present Illness Update Brief HPI Update: This is a 66-year-old gentleman with metastatic colon cancer to the liver and lungs. He is currently on surveillance only, he has been treated originally with stage II colon cancer in 07/2010, left lower lobe resection 02/2015, and liver mass resection in 01/2016. He is currently having his CEA monitored, which is stayed fairly stable with the days at 1.4. His most significant quality of life issues currently are related to his financial stressors, he recently had to move and was fairly close to homelessness, and continues to struggle ongoing with anxiety. 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 Medications/Allergies - Medications Home Medications: Ambulatory Orders Medication Instructions Recorded Confirmed Lisinopril 20 mg PO DAILY 03/08/13 10/18/17 Diphenoxylate HCl/Atropine 2.5 mg PO PRN PRN 12/24/14 10/18/17 [Lomotil 2.5-0.025 mg Tablet] Ondansetron [Ondansetron Odt] 8 mg ORAL Q8H PRN 11/06/15 10/18/17 Prochlorperazine Maleate 5 - 10 mg PO Q6H PRN 11/06/15 10/18/17 [Compazine] Loperamide [Imodium] 4 mg PO DAILY 05/20/16 10/18/17 Docusate Sodium 250Mg Capsule 250 mg PO BID PRN 05/09/17 10/18/17 [Colace 250Mg Capsule] Senna [Senokot] 17.2 mg PO BID PRN 05/09/17 10/18/17 Albuterol Sulf [Ventolin Hfa 2 puffs INH Q4HR PRN 06/29/17 10/18/17 Inhaler] Zolpidem Tartrate [Ambien] 10 mg PO DAILY PRN 08/02/17 10/18/17 Citalopram [CeleXA] 2 tab PO DAILY 10/18/17 10/18/17 Fluticasone/Salmeterol [Advair 1 ea INH BID 10/18/17 10/18/17 250-50 Diskus] - Allergies Allergies/Adverse Reactions: Allergies Allergy/AdvReac Type Severity Reaction Status Date / Time nitrous oxide [Nitrous Oxide] AdvReac Hallucinati Verified 05/08/17 23:34 ons tramadol AdvReac Nausea Verified 05/08/17 23:34 Review of Systems - Constitutional Constitutional: reports: Fatigue, Weight loss (reports 5 pounds; feels related to anxiety) - Eyes Eyes: reports: Vision loss - Ears, Nose & Throat Ears, Nose & Throat: reports: Hearing loss (mild), Other (poor dentition) - Cardiovascular Cardiovascular: reports: Exertional dyspnea, Decr. exercise tolerance - Respiratory Respiratory: reports: Wheezing (controlled on new inhalers), SOB with exertion. denies: SOB at rest - Gastrointestinal Gastrointestinal: reports: Reflux/heartburn, Early satiety. denies: Constipation, Diarrhea - Musculoskeletal Musculoskeletal: reports: Stiffness, Muscle weakness (less activity tolerance) - Integumentary Integumentary: reports: Dryness - Neurological Neurological: reports: General weakness, Memory problems (STM), Other (did not start PT because of pending move) - Psychiatric Psychiatric: reports: Depression, Anxiety (severely exacerbated over last few weeks; did not like Buspar; changed up antidepressant, could not recall what was on). denies: Suicidal - All Other Systems All Other Systems: reports: Reviewed and negative Physical Exam - Vital Signs Pulse Rate: 90 Respiratory Rate: 18 Blood Pressure: 112/64 - Physical Exam General Appearance: positive: No acute distress, Anxious Eyes Bilateral: positive: Normal inspection ENT: positive: No signs of dehydration, Other (poor dentition) Neck: positive: No JVD, Trachea midline Cardiovascular: positive: Regular rate & rhythm Respiratory: positive: Diminished throughout. 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 Was wanting to improve physical status, but deferred physical therapy in the context of his social stressors. Instructed to follow up if wanted a new referral - Palliative Care Discussion: Patient continues to be thankful for his reprieve from his cancer diagnosis, he is hoping things will settle down now that he has moved, but does have underlying general anxiety disorder. Continues to want to play a role in the life of his friend Aretha, aware it may take several weeks to settle in and create a new normal. He continues to struggle with financial stressors, but feels he has good support of friends and community Results - Lab Results Lab results reviewed: Yes Impression and Recommendations - Palliative Care Impression: This is a 66-year-old gentleman with metastatic colon cancer to the lung and liver, currently without obvious signs of disease progression, he is currently on surveillance. He continues to struggle with his underlying general anxiety disorder, recently exacerbated by his social situation, as well as multiple financial stressors. Palliative care continues to be available to provide support as needed. Recommendations/Counseling Done: 1. General anxiety disorder. Patient did not not like the BuSpar, PCP started him on citalopram up couple weeks ago, still does not find medication effective. Counseling regarding expected outcomes from medication, it is not a benzodiazepine, is not going to feel any immediate effect. Patient reports he is compliant, though has had difficulty with memory and taking pills in the past. 2. Depression. Patient denies suicidality, is feeling somewhat overwhelmed by his current situation, recommended when settled in to consider counseling for support. Did provide him brochure and encouragement to try 1 of [employer] retreats. 3. COPD. Patient does sound like he is compliant with his most recent inhalers , reports most of his dyspnea is related to exertion. Counseling regarding progressive ambulation and activity program now that he is finished moving. Instructed to follow-up if wanted new referral for physical therapy. 4. Advanced care planning. Patient does have DPO a, does not want to do a BEBE ST at this time, until disease progression. Patient is hoping for the best, with continued prolonged quality and quantity of life though does recognize the seriousness of his illness, but is difficult for him given his anxiety to look forward regarding this. Patient to contact palliative care for further support if needed, patient's disease continues with surveillance, agreed to check-in in 2-3 months unless contacted otherwise Time Spent: 30 minutes with greater than 50% of this done in counseling regarding anxiety, depression, further support from palliative care, and anticipatory guidance
== END 2017-10-18 14:13 | disposition home or self-care (01) ==
LOC: PC 14:12
PROVIDERS: ATTEND Nurse Practitioner Adult Health
DX: Z51.5 Encounter for palliative care (principal); F41.1 Generalized anxiety disorder; F32.9 Major depressive disorder, single episode, unspecified; J44.9 Chronic obstructive pulmonary disease, unspecified; M62.81 Muscle weakness (generalized); R53.83 Other fatigue; C18.9 Malignant neoplasm of colon, unspecified; C78.7 Secondary malignant neoplasm of liver and intrahepatic bile duct; C78.00 Secondary malignant neoplasm of unspecified lung
CPT/HCPCS: 99214

== ENCOUNTER 2018-03-07 10:48 | Outpatient (CLI) | payer MEDICARE, MEDICAID ==
--- NOTE | 2018-03-07 18:47 | CONSULTATION NOTE ---
Palliative Care Follow Up - Referral Referring Provider: Dr. Frankie Parker Time of Visit: [phone] Referral setting: [facility] [place] Referral Reason: Met Colon Cancer - Information Sources Records reviewed: Previous records reviewed History/Review of Systems obtained from: Patient Exam limitations: No limitations - History of Present Illness Update Brief HPI Update: This is a 67-year-old gentleman with stage IV colon cancer with metastases to liver, lung since 07/2015. He has had multiple chemotherapy, as well as a liver mass resection in 2015. He was on maintenance chemotherapy until 04/2017. He has been on active surveillance since this time, with the last CT scan showing is continues to be in complete remission. He has been doing fairly well, though he still has some activity intolerance, shortness of breath, and still struggles with fatigue. His GI issues have pretty much resolved, he has regained weight up to 165.6, he is getting regular CEAs. He presents today with ongoing mild anxiety disorder, chronic pain of his right wrist and ankle, and presents with actually fairly high blood pressure of 14 9/104, repeated 142/98. His most recently changed his living situation, and has been eating a lot of processed foods including pizza and [employer] dinners. He is on lisinopril 20 mg daily, but has had difficulty in the past with medication adherence. He reports increased stressors as he has recently transitioned over to Medicare, and still has medicate, but having difficulty navigating some of hi s insurance issues. He asked to meet with palliative care for check-in, and to address some of his concerns Social History - Living Situation Living arrangement: Other (rents a room in [place], this has worked out fairly well.) Support System: He is still actively involved in his friend Bobby's life, continues to take care of them on the weekends, he has returned to school. He did support him for most of the summer. He is missing this regular contact and purpose in his daily life, but continues to provide support and contact on regular basis. He has a girlfriend for social support. Medications/Allergies - Medications Home Medications: Ambulatory Orders Medication Instructions Recorded Confirmed Lisinopril 20 mg PO DAILY 03/08/13 03/07/18 Ondansetron [Ondansetron Odt] 8 mg ORAL Q8H PRN 11/06/15 03/07/18 Prochlorperazine Maleate 5 - 10 mg PO Q6H PRN 11/06/15 03/07/18 [Compazine] Albuterol Sulf [Ventolin Hfa 2 puffs INH Q4HR PRN 06/29/17 12/13/17 Inhaler] Zolpidem Tartrate [Ambien] 10 mg PO DAILY PRN 08/02/17 03/07/18 Citalopram [CeleXA] 2 tab PO DAILY 10/18/17 03/07/18 Fluticasone/Salmeterol [Advair 1 ea INH BID 10/18/17 03/07/18 250-50 Diskus] - Allergies Allergies/Adverse Reactions: Allergies Allergy/AdvReac Type Severity Reaction Status Date / Time nitrous oxide [Nitrous Oxide] AdvReac Hallucinati Verified 05/08/17 23:34 ons tramadol AdvReac Nausea Verified 05/08/17 23:34 Review of Systems - Constitutional Constitutional: reports: Fatigue, Weight gain (165) - Eyes Eyes: reports: Vision loss - Ears, Nose & Throat Ears, Nose & Throat: reports: Dental decay - Cardiovascular Cardiovascular: reports: Exertional dyspnea, Decr. exercise tolerance. denies: Chest pain - Respiratory Respiratory: reports: Cough (nonprod), SOB with exertion. denies: SOB at rest - Gastrointestinal Gastrointestinal: reports: Good appetite. denies: Constipation, Diarrhea, N ausea - Genitourinary Genitourinary: denies: Incontinence - Musculoskeletal Musculoskeletal: reports: Stiffness, Joint pain (right wrist; left ankle) - Integumentary Integumentary: reports: Dryness - Neurological Neurological: reports: Memory problems (STM issues) - Psychiatric Psychiatric: reports: Anxiety - Hematologic/Lymphatic Hematologic/Lymphatic: denies: Recurrent infections - All Other Systems All Other Systems: reports: Reviewed and negative Physical Exam - Vital Signs Temperature: 36.7 C Pulse Rate: 72 Respiratory Rate: 18 Blood Pressure: 149/104 (right with machine; 142/98 left with manual) - Physical Exam General Appearance: positive: Anxious (regarding insurance issues) Eyes Bilateral: positive: Normal inspection ENT: positive: No signs of dehydration Neck: positive: No JVD, Trachea midline Cardiovascular: positive: Regular rate & rhythm Respiratory: positive: Diminished throughout. negative: Wheezes, Rales, Rhonchi Abdomen: positive: Non-tender, Soft Skin: positive: Dryness Extremities: positive: No pedal edema Neurologic/Psychiatric: positive: Oriented x3, Mood/affect nml Palliative Care - POLST Patient has POLST: No Pain: Location (right wrist 3/10) Tiredness/Fatigue: Moderate (4-6) Drowsiness/Sedation: Moderate (4-6) Nausea: None Depression: None Anxiety: None, Comment (Patient currently on citalopram 20 mg daily, reports some of his anxiety has resolved as he has settled into his new living situation. He still has multiple stressors, and still continues to be easily triggered as far as his distress) Dyspnea: Mild (1-3) Anorexia: None Sleep: Variable sleep pattern Constipation: No Feelings of wellbeing/Perceived Quality of Life: Good, Acceptable Performance Status: Patient reports he still has difficulty with activity tolerance, needing frequent rest related to shortness of breath and fatigue. Disabled parking permit renewed - Palliative Care Discussion: Patient continues to have a reprieve from his cancer diagnosis, is continuing to hope for the best. He is settling into his new living situation, is somewhat befuddled by his transition to Medicare and his insurance issues. Financial stressors still remain significant for patient. Impression and Recommendations - Palliative Care Impression: This is a 67-year-old gentleman with stage IV metastatic colon cancer to the lung and liver, currently in remission and on surveillance. He continues to struggle with his underlying general anxiety disorder, multiple stressors related to finances, and insurance. Palliative care available to provide support as needed per patient request. Recommendations/Counseling Done: 1. General anxiety disorder. Patient continues on citalopram 20 mg daily, patient unclear if this is really helping, but has agreed to continue given the severity of his discomfort with this at times. Increased stressors related to insurance transition to Medicare, did enlist the help of the financial assistance specialist at the [facility] to assist with some of his questions. Also called the [facility] regarding his co-pays, unclear if they have his Medicaid listed. 2. COPD. Patient is using his inhalers, continues though with shortness of breath with exertion. He tries to remain active, though does sound somewhat sedentary. At this point in time does not want further follow-up with physical therapy. 3. Insomnia. Patient needing new prescription for Ambien 10 mg, he does find this effective. He still continues to have odd sleeping patterns, and has been instructed on sleep hygiene. Prescription provided, may need prior off with his new insurance. 4. Hypertension, uncontrolled. Patient reports he is taking his lisinopril 20 mg as instructed. Wrote down his current blood pressures, instructed to get daily blood pressures at the local [facility], and make an appointment with his PCP next week. Most likely needs his prescription adjusted, counseling done regarding dietary influence with processed foods of pizza/frozen dinners on his blood pressure and weight. 5. Advanced care planning. Currently patient doing quite well and in remission, remains on active surveillance. 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 He continues to hope for the best with continued prolonged quality and quantity of life, though does recognize the seriousness of his illness. Time Spent: 30 minutes with greater than 50% of this done in counseling regarding his current anxiety and goals of care, coordination of care with financial assistance specialist to assist with concerns regarding insurance.
== END 2018-03-07 10:49 | disposition home or self-care (01) ==
LOC: PC 10:48
PROVIDERS: ATTEND Nurse Practitioner Adult Health
DX: Z51.5 Encounter for palliative care (principal); F41.1 Generalized anxiety disorder; J44.9 Chronic obstructive pulmonary disease, unspecified; G47.00 Insomnia, unspecified; I10 Essential (primary) hypertension; Z85.038 Personal history of other malignant neoplasm of large intestine; Z85.05 Personal history of malignant neoplasm of liver; Z85.118 Personal history of other malignant neoplasm of bronchus and lung; R53.83 Other fatigue
CPT/HCPCS: 99214

== ENCOUNTER 2018-07-18 09:37 | Day surgery (SDC) | payer MEDICARE, MEDICAID ==
[2018-07-18] MEDS ORDERED: LACTATED RINGERS 1,000 ML IV ONE ×2 (09:50→11:41)
[2018-07-18] MEDS ORDERED: SODIUM CHLORIDE FLUSH 0.9% 10 ML SYRINGE ONE (10:18)
[2018-07-18] MEDS ORDERED: fentaNYL 250 MCG/5 ML VIAL IVP ONE (11:35)
[2018-07-18] MEDS ORDERED: MIDAZOLAM 2 MG/2 ML VIAL IVP ONE (11:35)
[2018-07-18 12:55] VITALS: BP 104/68
== END 2018-07-18 09:38 | disposition home or self-care (01) ==
LOC: SDS 09:37
PROVIDERS: ATTEND Surgery
PROC: 0DJD8ZZ Inspection of Lower Intestinal Tract, Via Natural or Artificial Opening Endoscopic (ICD-10-PCS; principal; 2018-07-18 11:45)
DX: Z08 Encounter for follow-up examination after completed treatment for malignant neoplasm (principal); Z85.038 Personal history of other malignant neoplasm of large intestine; I10 Essential (primary) hypertension; K64.8 Other hemorrhoids; Z87.891 Personal history of nicotine dependence; Z92.21 Personal history of antineoplastic chemotherapy; Z87.11 Personal history of peptic ulcer disease; Z90.49 Acquired absence of other specified parts of digestive tract
CPT/HCPCS: 45378; J3010; J7120

== ENCOUNTER 2018-10-10 16:49 | Outpatient (CLI) | payer MEDICARE, MEDICAID ==
--- NOTE | 2018-10-11 17:37 | Ultrasound Report ---
Reason: SECONDARY MALIGNANT NEOPLASM OF LIVER AND INTRAHEP Procedure Date: 10/10/2018 Accession Number: [id number] / [id number] Procedure: US - Retroperitoneal CPT Code: FULL RESULT: EXAM: RENAL ULTRASOUND EXAM DATE: 10/10/2018 05:15 PM. CLINICAL HISTORY: SECONDARY MALIGNANT NEOPLASM OF LIVER. Follow-up abnormal CT of 09/22/2018 with reference to right kidney inferior pole hypodensity. COMPARISON: 09/06/2018 PET imaging, 09/22/2018 and 04/28/2018 CT scan abdomen and pelvis. TECHNIQUE: Real-time scanning was performed with static images obtained. FINDINGS: Right Kidney: 11.7 x 4.1 x 5.1 cm cm. No stones or hydronephrosis. Inferior pole 2.1 x 1.7 x 1.9 cm simple cyst corresponding to the CT lesion.. Midpole 1.2 x 0.6 x 1.2 cm exophytic cyst. Left Kidney: Not evaluated Bladder: Not evaluated Other: When the 09/22/[address] is compared with the PET scan of 09/06/2018 there is no abnormal uptake in either lesion/cyst identified on CT and ultrasound. IMPRESSION: The right renal inferior pole hypodensity is most consistent with a cyst. RADIA
== END 2018-10-10 16:50 | disposition home or self-care (01) ==
LOC: DI 16:49
PROVIDERS: ATTEND Specialist
DX: C78.7 Secondary malignant neoplasm of liver and intrahepatic bile duct (principal)
CPT/HCPCS: 76770

== ENCOUNTER 2018-10-17 09:10 | Outpatient (CLI) | payer MEDICARE, MEDICAID ==
[2018-10-17] MEDS ORDERED: SODIUM CHLORIDE FLUSH 0.9% 10 ML SYRINGE ONE (09:22)
[2018-10-17 09:50] LABS: CREATININE 0.7 mg/dL (0.6-1.2)
[2018-10-17] MEDS ORDERED: IOVERSOL 320 100 ML VIAL IVP ONE ×2 (10:34→14:01)
--- NOTE | 2018-10-17 14:17 | CT Report ---
Reason: SECONDARY MALIGNANT NEOPLASM OF LIVER AND INTRAHEPATIC BILE DUCT. Procedure Date: 10/17/2018 Accession Number: [id number] / [id number] Procedure: CT - ABDOMEN W CPT Code: FULL RESULT: EXAM: CT ABDOMEN WITHOUT AND WITH CONTRAST EXAM DATE: 10/17/2018 10:36 AM. CLINICAL HISTORY: Colon cancer. Avastin therapy. COMPARISONS: CHEST W/ 09/22/2018 12:52 PM. TECHNIQUE: Multiphasic CT of abdomen in multiple phases with IV contrast: OPTI 320 100 mL. Enteric contrast: None. Reconstructions: Coronal and sagittal. In accordance with CT protocol optimization, one or more of the following dose reduction techniques were utilized for this exam: automated exposure control, adjustment of mA and/or KV based on patient size, or use of iterative reconstructive technique. FINDINGS: Lung Bases: Background emphysema. Liver: Redemonstration of status post partial left hepatectomy. There is asymmetric perfusion of segment 4, felt to be postsurgical in nature. No arterial enhancing lesion is identified and no lesion suspicious for metastatic colon cancer was identified. Pancreas: Normal. No mass, inflammation, or ductal dilatation. No pseudocysts or pancreatic necrosis. Other Solid Organs: The spleen, bilateral adrenal glands, and kidneys are unremarkable with the exception of a right renal cyst and renal hypodensities which are too small to characterize. Gallbladder/Biliary System: Normal. No visualized stones or acute inflammation. Bowel: The visualized bowel is unremarkable. Soft Tissues: No free fluid or adenopathy. Bones: Normal. Other: None. IMPRESSION: No suspicious hepatic lesions are detected. RADIA ADDENDUM: 11/09/18 08:11 This addendum is a clarification of the exam title: The correct title is CT abdomen with contrast. The technique correctly describes imaging performed, findings and impression are unchanged.
== END 2018-10-17 09:11 | disposition home or self-care (01) ==
LOC: DI 09:10
PROVIDERS: ATTEND Specialist
DX: C78.7 Secondary malignant neoplasm of liver and intrahepatic bile duct (principal)
CPT/HCPCS: 74160; 82565; 84520; Q9967; 74170

== ENCOUNTER 2018-11-27 22:23 | Emergency (ER) | payer MEDICARE, MEDICAID ==
[2018-11-27 22:32] VITALS: BP 153/86
--- NOTE | 2018-11-27 23:16 | ED Physician Documentation ---
PD HPI WOUND RECHECK - Stated complaint Stated Complaint: OPEN WOUND/POST OP - Chief complaint Chief Complaint: Wound - Histroy obtained from History obtained from: Patient - History of Present Illness Location: Abdomen Timing - onset: How many hours ago (1) Associated symptoms: Drainage Recently seen: Surgery (9 days S/P mariia and partial liver resection for metastatic colon cancer.) - Additional information Additional information: The patient is a 67-year-old male with history of metastatic colon cancer diagnosed in 2010, 9 days status post cholecystectomy and partial liver resection, who presents with drainage from his surgical wound. The wound drained blood-tinged fluid starting about 1 hour ago, after the patient coughed. He denies any associated pain, fever, nausea or vomiting. He denies dysuria or lightheadedness. Review of Systems Constitutional: denies: Fever Nose: denies: Congestion Throat: denies: Sore throat Cardiac: denies: Chest pain / pressure Respiratory: denies: Dyspnea, Cough GI: denies: Abdominal Pain, Nausea, Vomiting : denies: Dysuria Skin: denies: Rash Neurologic: denies: Generalized weakness, Headache PD PAST MEDICAL HISTORY - Past Medical History Past Medical History: Yes Cardiovascular: Hypertension Respiratory: Shortness of breath, Other Endocrine/Autoimmune: None GI: Ulcers, Other : Kidney stones HEENT: None Psych: Depression, Anxiety, Panic attacks Musculoskeletal: Osteoarthritis, Other Derm: None Other Past Medical History: Colon CA, with mets to liver and lung. - Past Surgical History Past Surgical History: Yes General: Bowel surgery, Liver surgery, Colonoscopy, Other Ortho: Other HEENT: Tonsil/Adenoidectomy - Present Medications Home Medications: Ambulatory Orders Medication Instructions Recorded Confirmed Lisinopril 20 mg PO DAILY 03/08/13 11/27/18 Albuterol Sulf [Ventolin Hfa 2 puffs INH Q4HR PRN 06/29/17 11/27/18 Inhaler] Zolpidem Tartrate [Ambien] 10 mg PO DAILY PRN 08/02/17 11/27/18 Citalopram [CeleXA] 2 tab PO DAILY 10/18/17 11/27/18 Fluticasone/Salmeterol [Advair 1 ea INH BID 10/18/17 11/27/18 250-50 Diskus] Enoxaparin [Lovenox] 30 mg SQ DAILY 11/27/18 11/27/18 oxyCODONE [Roxicodone] 10 mg PO DAILY 11/27/18 11/27/18 predniSONE [Prednisone] 11/27/18 - Allergies Allergies/Adverse Reactions: Allergies Allergy/AdvReac Type Severity Reaction Status Date / Time nitrous oxide [Nitrous Oxide] AdvReac Hallucinati Verified 11/27/18 22:32 ons tramadol AdvReac Nausea Verified 11/27/18 22:32 - Social History Does the pt smoke?: No Smoking Status: Never smoker Does the pt drink ETOH?: Yes Does the pt have substance abuse?: Yes - Immunizations Immunizations are current?: No Immunizations: TDAP >10years/unknown - POLST Patient has POLST: No POLST Status: Full Code PD ED PE NORMAL - Vitals Vital signs reviewed: Yes (systolic hypertension) - General General: Alert and oriented X 3, Well developed/nourished - HEENT HEENT: Atraumatic, Moist mucous membranes - Neck Neck: No adenopathy, No JVD - Cardiac Cardiac: RRR - Respiratory Respiratory: No respiratory distress, Clear bilaterally - Abdomen Abdomen: Soft, Non tender, Other (Surgical wound is intact with en in the right upper quadrant. There is blood-tinged transudate of fluid draining from a small opening in the midportion of the surgical incision site. There is no associated erythema or tenderness to palpation.) - Back Back: No CVA TTP - Derm Derm: No rash - Extremities Extremities: No edema, No calf tenderness / cord - Neuro Neuro: Alert and oriented X 3, No motor deficit, Normal speech Results - Vitals Vitals: Vital Signs - 24 hr 11/27/18 11/27/18 22:27 22:54 Temperature 36.6 C 36.8 C Heart Rate 76 Respiratory 18 Rate Blood Pressure 153/86 H O2 Saturation 96 Oxygen O2 Source Room air PD MEDICAL DECISION MAKING - ED course Complexity details: considered differential, d/w patient, d/w family ED course: The patient's presentation is significant for transudative fluid drainage 9 days status post abdominal surgery. There is no evidence of cellulitis or surgical wound infection, and I doubt wound dehiscence. A bulky gauze dressing was place d at the drainage site. I discussed with the patient and his family the benign nature of this condition, appropriate wound care, as well as potentially worrisome signs or symptoms that should prompt reevaluation in the emergency department. He has a follow-up appointment scheduled with his surgeon 2 days from now. Departure - Departure Disposition: Home, Self Care Clinical Impression: Encounter for post surgical wound check Condition: Stable Instructions: ED Wound Check Post Op No Infec Follow-Up: Bebe Guadarrama PA-C [Primary Care Provider] - Comments: Clean the wound daily with warm soapy water. Keep gauze pad over the draining site. Follow-up with your surgeon on Wednesday as scheduled. Return to the emergency department if markedly increased draining, associated pain, any sign of infection, or otherwise worsening symptoms. Discharge Date/Time: 11/27/18 23:33
== END 2018-11-27 23:33 | disposition home or self-care (01) ==
LOC: ED 22:23
DX: C18.9 Malignant neoplasm of colon, unspecified (principal); C78.7 Secondary malignant neoplasm of liver and intrahepatic bile duct; C78.00 Secondary malignant neoplasm of unspecified lung; Z90.49 Acquired absence of other specified parts of digestive tract; Z48.01 Encounter for change or removal of surgical wound dressing; I10 Essential (primary) hypertension
CPT/HCPCS: 99282; 99283

== ENCOUNTER 2018-12-09 12:39 | Emergency (ER) | payer MEDICARE, MEDICAID ==
[2018-12-09 13:00] VITALS: BP 106/69
--- NOTE | 2018-12-09 13:12 | ED Physician Documentation ---
History of Present Illness - Stated complaint Stated Complaint: WOUND OPENED - Chief complaint Chief Complaint: Wound - History obtained from History obtained from: Patient - Additonal information Additional information: Patient is a 68-year-old male with history of metastatic colon cancer status post a cholecystectomy and partial liver resection in the past several weeks. Patient has had complications with wound dehiscence and has been seen in the ED previously. Patient reports concern for wound opening, as well as a redness and abnormal drainage. Patient does report that he has not cleaned the wound in the past 2 days.Patient denies fever, chills, abdominal pain, vomiting, urinary changes, or stool changes. Patient is not currently on any antibiotics. Patient is to follow-up with his oncologist, but does not have follow-up scheduled with his surgeon. No other improving or worsening factors noted. Review of Systems Constitutional: denies: Fever GI: denies: Abdominal Pain, Nausea, Vomiting, Diarrhea : denies: Dysuria Skin: reports: Other (wound to abdomen) PD PAST MEDICAL HISTORY - Past Medical History Cardiovascular: Hypertension Respiratory: Shortness of breath, Other Endocrine/Autoimmune: None GI: Ulcers, Other : Kidney stones HEENT: None Psych: Depression, Anxiety, Panic attacks Musculoskeletal: Osteoarthritis, Other Derm: None - Past Surgical History Past Surgical History: Yes General: Bowel surgery, Liver surgery, Colonoscopy, Other Ortho: Other HEENT: Tonsil/Adenoidectomy - Present Medications Home Medications: Ambulatory Orders Medication Instructions Recorded Confirmed Lisinopril 20 mg PO DAILY 03/08/13 11/27/18 Albuterol Sulf [Ventolin Hfa 2 puffs INH Q4HR PRN 06/29/17 11/27/18 Inhaler] Zolpidem Tartrate [Ambien] 10 mg PO DAILY PRN 08/02/17 11/27/18 Citalopram [CeleXA] 2 tab PO DAILY 10/18/17 11/27/18 Fluticasone/Salmeterol [Advair 1 ea INH BID 10/18/17 11/27/18 250-50 Diskus] Enoxaparin [Lovenox] 30 mg SQ DAILY 11/27/18 11/27/18 oxyCODONE [Roxicodone] 10 mg PO DAILY 11/27/18 11/27/18 predniSONE [Prednisone] 11/27/18 Cephalexin [Keflex] 500 mg PO QID 7 Days capsule 12/09/18 Sulfamethox/Trimeth 800/160 1 each PO BID #14 tablet 12/09/18 [Bactrim Ds 800/160] - Allergies Allergies/Adverse Reactions: Allergies Allergy/AdvReac Type Severity Reaction Status Date / Time nitrous oxide [Nitrous Oxide] AdvReac Hallucinati Verified 11/27/18 22:32 ons tramadol AdvReac Nausea Verified 11/27/18 22:32 - Social History Does the pt smoke?: No Smoking Status: Never smoker Does the pt drink ETOH?: Yes Does the pt have substance abuse?: Yes - Immunizations Immunizations are current?: No Immunizations: TDAP >10years/unknown - POLST Patient has POLST: No POLST Status: Full Code PD ED PE NORMAL - Vitals Vital signs reviewed: Yes - General General: Alert and oriented X 3, No acute distress, Well developed/nourished - HEENT HEENT: Atraumatic, Moist mucous membranes - Cardiac Cardiac: RRR, No murmur - Respiratory Respiratory: No respiratory distress, Clear bilaterally - Abdomen Abdomen: Normal bowel sounds, Soft, Non tender, Non distended - Derm Derm: Normal color, Warm and dry, No rash, Other (Several inch slightly open wound to right abdomen that is feeling inappropriately but has mild surrounding erythema and yellow purulent drainage present. No tenderness.) - Extremities Extremities: No deformity, No tenderness to palpate - Neuro Neuro: Alert and oriented X 3, No motor deficit, No sensory deficit - Psych Psych: Normal mood Results - Vitals Vitals: Vital Signs - 24 hr 12/09/18 12:56 Temperature 36.6 C Heart Rate 81 Respiratory 16 Rate Blood Pressure 106/69 O2 Saturation 97 Oxygen O2 Source Room air PD MEDICAL DECISION MAKING - ED course Complexity details: considered differential, d/w patient ED course: Patient presenting with evidence of wound infection from recent cholecystectomy and partial liver resection. Patient is not currently on any antibiotics and has had decreased hygiene over the past several days. There is a small area of erythema and purulent drainage present. Wound culture ordered. Wound appropriately cleaned and bandaged in the ED. Feel most appropriate to start antibiotics. Otherwise, have low suspicion for intra-abdominal abscess or fluid collection, sepsis, or other systemic illness at this time given patient's lack of other complaints. Do not feel he requires screening lab work, other invasive testing, imaging.Feel that he is safe to discharge home with oral antibiotics, supportive cares, strict return precautions, and close follow-up. Patient voiced understanding and is comfortable with discharge plan. Departure - Departure Disposition: 01 Home, Self Care Clinical Impression: Surgical wound infection Condition: Good Instructions: ED Wound Care Follow-Up: Bebe Guadarrama PA-C [Primary Care Provider] - Within 3 Days Prescriptions: Cephalexin [Keflex] 500 mg PO QID 7 Days capsule Sulfamethox/Trimeth 800/160 [Bactrim Ds 800/160] 1 each PO BID #14 tablet Comments: Please continue all home medications as previously instructed. Please take antibiotics as prescribed to address wound infection. Recommend taking in a biotics with small amount of food to avoid upset stomach. Please contact your surgeon later today and let him know that you have been in the ED and we are concerned about a wound infection and have started you on antibiotics and recommend you following up with him in the next several days. His contact your primary care physician and explained the same and arrange for follow-up next week. Return to ED sooner if experience worsening symptoms, fever, vomiting, abdominal pain, urinary changes, stool changes or you have other concerns.
== END 2018-12-09 14:12 | disposition home or self-care (01) ==
LOC: ED 12:39
DX: T81.41XA Infection following a procedure, superficial incisional surgical site, initial encounter (principal); Y83.8 Other surgical procedures as the cause of abnormal reaction of the patient, or of later complication, without mention of misadventure at the time of the procedure; Z90.49 Acquired absence of other specified parts of digestive tract; Z85.038 Personal history of other malignant neoplasm of large intestine; I10 Essential (primary) hypertension
CPT/HCPCS: 99283

== ENCOUNTER 2019-10-20 14:18 | Emergency (ER) | payer MEDICARE, MEDICAID ==
[2019-10-20 14:47] LABS: BASOPHILS % (AUTO) 0.4 %; EOSINOPHILS % (AUTO) 0.4 %; HGB - HEMOGLOBIN 13.8 g/dL (14.0-18.0); LYMPHOCYTES # (AUTO) 1.1 10^3/uL (1.5-3.5); LYMPHOCYTES % (AUTO) 11.9 %; MEAN CORPUSCULAR HEMOGLOBIN 29.2 pg (27.0-31.0); MEAN CORPUSCULAR HGB CONC 32.9 g/dL (32.0-36.0); MEAN CORPUSCULAR VOLUME 88.8 fL (80.0-94.0); MEAN PLATELET VOLUME 10.9 fL (7.4-11.4); MONOCYTES # (AUTO) 0.9 10^3/uL (0.0-1.0); NEUTROPHILS % (AUTO) 76.9 %; PLT - PLATELET COUNT 213 10^3/uL (130-450); RED BLOOD COUNT 4.72 10^6/uL (4.70-6.10); RED CELL DISTRIBUTION WIDTH 14.2 % (12.0-15.0); WHITE BLOOD COUNT 9.1 x10^3/uL (4.8-10.8)
[2019-10-20 15:01] LABS: ALBUMIN 3.8 g/dL (3.2-5.5); BILIRUBIN,TOTAL 5.2 mg/dL (0.2-1.0); CREATININE 0.8 mg/dL (0.6-1.2); TOTAL PROTEIN 7.6 g/dL (6.7-8.2)
--- NOTE | 2019-10-20 17:00 | ED Physician Documentation ---
PD HPI ABD PAIN - Stated complaint Stated Complaint: ABD PX - Chief complaint Chief Complaint: Abd Pain - History obtained from History obtained from: Patient (This is a very pleasant 68-year-old gentleman with extensive history of resections of colon cancer who presents with about 5 days of abdominal discomfort with increased flatus and belching but decreased bowel movements. No vomiting. He had a low-grade fever the other night which i s now gone. He declines pain medication on initial evaluation. He is not currently on chemotherapy, his colon cancer has in the past metastasized to liver and spine. He does not have a history of bowel obstruction.) Review of Systems Ten Systems: 10 systems reviewed and negative Constitutional: reports: Fever GI: reports: Abdominal Pain, Constipation. denies: Nausea, Vomiting, Diarrhea PD PAST MEDICAL HISTORY - Past Medical History Cardiovascular: Hypertension Respiratory: Shortness of breath, Other Endocrine/Autoimmune: None GI: Ulcers, Other : Kidney stones HEENT: None Psych: Depression, Anxiety, Panic attacks Musculoskeletal: Osteoarthritis, Other Derm: None - Past Surgical History Past Surgical History: Yes General: Bowel surgery, Liver surgery, Colonoscopy, Other Ortho: Other HEENT: Tonsil/Adenoidectomy - Present Medications Home Medications: Ambulatory Orders Medication Instructions Recorded Confirmed lisinopriL [Lisinopril] 20 mg PO DAILY 03/08/13 11/27/18 Albuterol Sulf [Ventolin Hfa 2 puffs INH Q4HR PRN 06/29/17 11/27/18 Inhaler] Citalopram [CeleXA] 2 tab PO DAILY 10/18/17 11/27/18 Fluticasone/Salmeterol [Advair 1 ea INH BID 10/18/17 11/27/18 250-50 Diskus] Enoxaparin [Lovenox] 30 mg SQ DAILY 11/27/18 11/27/18 oxyCODONE [Roxicodone] 10 mg PO DAILY 11/27/18 11/27/18 Cephalexin [Keflex] 500 mg PO QID 7 Days capsule 12/09/18 Sulfamethox/Trimeth 800/160 1 each PO BID #14 tablet 12/09/18 [Bactrim Ds 800/160] - Allergies Allergies/Adverse Reactions: Allergies Allergy/AdvReac Type Severity Reaction Status Date / Time nitrous oxide [Nitrous Oxide] AdvReac Hallucinati Verified 10/20/19 14:24 ons tramadol AdvReac Nausea Verified 10/20/19 14:24 - Social History Does the pt smoke?: No Smoking Status: Never smoker Does the pt drink ETOH?: Yes Does the pt have substance abuse?: Yes - Immunizations Immunizations are current?: No Immunizations: TDAP >10years/unknown - POLST Patient has POLST: No POLST Status: Full Code PD ED PE NORMAL - Vitals Vital signs reviewed: Yes - General General: Alert and oriented X 3, No acute distress - HEENT HEENT: PERRL, EOMI - Neck Neck: Supple, no meningeal sign, No bony TTP - Cardiac Cardiac: RRR, No murmur - Respiratory Respiratory: No respiratory distress, Clear bilaterally - Abdomen Abdomen: Other (Extensive laparotomy scars, both midline and right upper quadrant. Slightly distended with absent bowel tones, no significant tenderness.) - Back Back: No CVA TTP, No spinal TTP - Derm Derm: Normal color, Warm and dry - Extremities Extremities: No edema, No calf tenderness / cord - Neuro Neuro: Alert and oriented X 3, Normal speech Results - Vitals Vitals: Vital Signs - 24 hr 10/20/19 10/20/19 10/20/19 14:25 15:00 17:01 Temperature 36.9 C Heart Rate 90 85 85 Respiratory 16 18 16 Rate Blood Pressure 148/91 H 122/68 142/89 H O2 Saturation 97 100 98 10/20/19 10/20/19 10/20/19 18:00 19:00 21:00 Temperature Heart Rate 82 82 80 Respiratory 16 18 18 Rate Blood Pressure 132/68 H 135/85 H 144/65 H O2 Saturation 99 99 99 Oxygen O2 Source Room air - Labs Labs: Laboratory Tests 10/20/19 10/20/19 10/20/19 14:42 14:42 16:57 WBC 9.1 RBC 4.72 Hgb 13.8 L Hct 41.9 L MCV 88.8 MCH 29.2 MCHC 32.9 RDW 14.2 Plt Count 213 MPV 10.9 Neut # (Auto) 7.0 H Lymph # (Auto) 1.1 L [place] # (Auto) 0.9 Eos # (Auto) 0.0 Baso # (Auto) 0.0 Absolute Nucleated RBC 0.00 Nucleated RBC % 0.0 Sodium 135 Potassium 3.7 Chloride 105 Carbon Dioxide 22 Anion Gap 8.0 BUN 16 Creatinine 0.8 Estimated GFR (MDRD) 97 Glucose 138 H Calcium 9.0 Total Bilirubin 5.2 H AST 165 H ALT 345 H Alkaline Phosphatase 328 H Total Protein 7.6 Albumin 3.8 Globulin 3.8 Albumin/Globulin Ratio 1.0 Lipase 20 L Urine Color ORANGE Urine Clarity CLEAR Urine pH 6.5 Ur Specific [place] 1.020 Urine Protein TRACE Urine Glucose (UA) NEGATIVE Urine Ketones TRACE Urine Occult Blood NEGATIVE Urine Nitrite NEGATIVE Urine Bilirubin LARGE H Urine Urobilinogen 0.2 (NORMAL) Ur Leukocyte Esterase NEGATIVE Ur Microscopic Review NOT INDICATED Urine Culture Comments NOT INDICATED - Rads (name of study) CT abdomen and pelvis Radiology: EMP read contemporaneously (New pulmonary and liver metastases, new moderate intrahepatic bile duct dilatation, anterior ventral hernia) PD MEDICAL DECISION MAKING - ED course ED course: 68-year-old gentleman with known colon cancer presents with abdominal pain but declines pain medication. He is found to have obstructive jaundice likely due to metastatic disease. Spoke with Dr. Evan Yepez, GI at [facility] after some delay. We discussed potentially doing as outpatient but the patient has no phone and no transportation so he felt it was best to just send him down. Subsequent to that he was accepted by the clerk of court, Dr. Laxmi Gao at [facility]. However due to a combination of low staffing and bed availability they requested that he not be transported until the morning. Departure - Departure Disposition: 02 Transfer Acute Care Hosp Clinical Impression: Biliary obstruction due to cancer Colon cancer Qualifiers: Colon location: unspecified part of colon Qualified Code(s): C18.9 - Malignant neoplasm of colon, unspecified Condition: Stable
[2019-10-20] MEDS ORDERED: IOVERSOL 320 100 ML VIAL IVP ONE ×2 (17:08→18:45)
[2019-10-20] MEDS ORDERED: IOVERSOL 320 50 ML VIAL ONE (17:08)
[2019-10-20 17:15] LABS: GLUCOSE, URINE (UA) NEGATIVE (NEGATIVE); KETONES,URINE (UA) TRACE mg/dL (NEGATIVE); LEUKOCYTE ESTERASE, URINE NEGATIVE (NEGATIVE); NITRITE,URINE NEGATIVE (NEGATIVE); OCCULT BLOOD,URINE NEGATIVE (NEGATIVE); PH,URINE 6.5 PH (5.0-7.5); PROTEIN,URINE TRACE mg/dL (NEGATIVE); UROBILINOGEN,URINE 0.2 (NORMAL) E.U./dL (NORMAL)
[2019-10-20 17:18] LABS: BILIRUBIN,URINE LARGE (NEGATIVE); ICTOTEST,URINE POSITIVE
[2019-10-20 17:19] LABS: CLARITY,URINE CLEAR (CLEAR)
[2019-10-20] MEDS ORDERED: IOVERSOL 320 50 ML VIAL PO ONE (18:45)
--- NOTE | 2019-10-20 19:03 | CT Report ---
Reason: IV and PO; abd Procedure Date: 10/20/2019 Accession Number: [id number] / [id number] Procedure: CT - Abdomen/Pelvis W CPT Code: Final Report FULL RESULT: EXAM: CT ABDOMEN AND PELVIS EXAM DATE: 10/20/2019 06:40 PM. CLINICAL HISTORY: Abdomen pain. COMPARISONS: ABDOMEN W/WO 10/17/2018 10:36 AM ABDOMEN W/ 09/22/2018 12:52 PM. TECHNIQUE: Routine helical CT imaging was performed through the abdomen and pelvis. IV contrast: OPTIRAY 320. Enteric contrast: Yes. Reconstructions: Coronal and sagittal. In accordance with CT protocol optimization, one or more of the following dose reduction techniques were utilized for this exam: automated exposure control, adjustment of mA and/or KV based on patient size, or use of iterative reconstructive technique. FINDINGS: Lung bases: Multiple new pulmonary nodules are seen in the bilateral lower lobes, right middle lobe and lingula. Bethanie 1 of the largest pulmonary nodule seen in the right middle lobe measuring 9 mm. New right retrocrural lymphadenopathy measuring 2.3 cm. Liver: Multiple new liver metastasis with low density liver masses, 1 of the largest is seeing anteriorly in the right hepatic lobe measuring 2.1 cm. Left hepatectomy new moderate intrahepatic bile duct dilatation. Michael hepatis lymphadenopathy measuring 1.3 cm. Cholecystectomy. The common duct is not seen. Pancreas: Mild atrophy. No pancreatic mass is seen. Spleen: Unremarkable Adrenals: Unremarkable. Kidneys: A few right renal cysts are noted, largest seen in lower pole right kidney measuring 2.3 cm. Small left posterior exophytic renal cyst. No imaging follow-up is recommended per consensus recommendations based on imaging criteria. No hydronephrosis. Bowel: Sigmoid anastomosis. No dilated bowel loops are seen to suggest obstruction. Anterior pelvis ventral hernia containing a loop of small bowel, measures 4.4 cm. No evidence for obstruction or strangulation. No free fluid or free air. Pelvis: The bladder is unremarkable. Mildly enlarged prostate measuring 5.8 cm across. Right external iliac lymphadenopathy measuring 1.1 cm. Left external iliac lymphadenopathy measuring 1 cm. Right common iliac lymphadenopathy measuring 1.3 cm. Other retroperitoneal lymph nodes. Bones: No acute bone findings are seen. Vasculature: No acute findings. IMPRESSION: 1. New pulmonary and liver metastasis. New lymphadenopathy metastasis. See above. 2. New moderate intrahepatic bile duct dilatation in the right hepatic lobe. 3. Anterior pelvis ventral hernia containing a loop of small bowel, measures 4.4 cm. No evidence for obstruction or strangulation. 4. Otherwise, see above. RADIA
[2019-10-20] MEDS ORDERED: DEXTROSE 5%-0.45% NACL 1,000 ML IV STA (21:50)
[2019-10-20] MEDS ORDERED: LORazepam 1 MG TABLET PO STA (21:56)
[2019-10-21] MEDS ORDERED: HYDROmorphone 0.5 MG/0.5 ML SYRINGE IVP STA ×2 (01:31→05:53)
[2019-10-21] MEDS: HYDROmorphone 1 MG/ML CARPUJECT IVP STA ×2 (01:55→06:08)
[2019-10-21] MEDS ORDERED: lisinopriL 5 MG TABLET PO STA (02:07)
[2019-10-21] MEDS ORDERED: HYDROmorphone 1 MG/ML CARPUJECT ONE (06:03)
[2019-10-21 08:12] VITALS: BP 122/107
== END 2019-10-21 08:40 | disposition short-term general hospital (02) ==
LOC: ED 14:18
DX: K83.1 Obstruction of bile duct (principal); C78.7 Secondary malignant neoplasm of liver and intrahepatic bile duct; C78.02 Secondary malignant neoplasm of left lung; C78.01 Secondary malignant neoplasm of right lung; C79.51 Secondary malignant neoplasm of bone; C77.2 Secondary and unspecified malignant neoplasm of intra-abdominal lymph nodes; C18.9 Malignant neoplasm of colon, unspecified; K43.9 Ventral hernia without obstruction or gangrene; I10 Essential (primary) hypertension; Z85.038 Personal history of other malignant neoplasm of large intestine; Z90.49 Acquired absence of other specified parts of digestive tract
CPT/HCPCS: 36415; 74177; 80053; 81003; 83690; 85025; 96374; 99283; 99285; A9270; J1170; J8499; Q9967; 81001; 87086

== ENCOUNTER 2019-12-25 13:04 | Outpatient (CLI) | payer MEDICARE, MEDICAID ==
--- NOTE | 2019-12-25 14:51 | Ultrasound Report ---
PROCEDURE: Abdomen Limited INDICATIONS: HISTORY OF ELEVATED LFT AND STENT TECHNIQUE: Real-time focused scanning was performed of the right upper quadrant, with image documentation. COMPARISON: CT abdomen pelvis 10/20/2019. FINDINGS: Evaluation limited by patient inability to hold breath. The left hepatic lobe is surgically absent. The residual liver is heterogeneous in appearance. No dis crete hepatic mass is visualized sonographically. The gallbladder is surgically absent. There is central intrahepatic biliary ductal dilatation redemonstrated. The extrahepatic ducts are no rmal in caliber, with the visualized common bile duct measuring up to 0.6 cm. Right kidney measures 12.1 cm. No hydronephrosis. A right renal cyst is again noted measuring up to 1 .4 cm. The aorta and pancreas are not well visualized. IMPRESSION: 1. Heterogeneous appearance of the liver with the previously identified hepatic mass lesions seen on CT not discretely visualized. Consider follow-up CT with contrast for further evaluation. 2. Intrahepatic biliary ductal dilatation redemonstrated. An obstructing mass cannot be excluded. Fur ther evaluation may be obtained with CT or MRI. Reviewed by: Javed Pastor MD on 12/25/2019 2:50 PM PDT Approved by: Javed Pastor MD on 12/25/2019 2:50 PM PDT Station ID: [id number]
[2019-12-25] MEDS ORDERED: IOVERSOL 320 100 ML VIAL IVP ONE ×2 (16:44→20:34)
--- NOTE | 2019-12-25 17:29 | CT Report ---
PROCEDURE: ABDOMEN W/WO INDICATIONS: HX OF ELEVATED LFT STENT,METASTOTIC COLON TECHNIQUE: After the administration of intravenous contrast, 5 mm thick sections acquired from the diaphragms to the mid sacrum. 5 mm thick coronal and sagittal reformats were acquired. For radiation dose reducti on, the following was used: automated exposure control, adjustment of mA and/or kV according to jeronimo ent size. COMPARISON: CT of abdomen and pelvis dated 10/20/2019. FINDINGS: Image quality: Excellent. Lung bases: 4 mm nodular density is seen in anterior lateral aspect of right lower lobe adjacent to m ajor fissure. 7.5 mm nodular density is noted in anterior aspect of right middle lobe medial right rylee ng base. Small nodular densities also seen in posterior lateral aspect of left lung base measures up to 7.8 mm in size. Bibasilar scarring/atelectasis is also seen. Heart size is normal. Urinary system: Both kidneys are normal in size, without hydronephrosis or nephrolithiasis on pre-co ntrast images. No perinephric fat stranding. There is normal bilateral renal enhancement. Bilatera l renal cysts are seen. Renal calyces appear normal in morphology when filled with contrast. Opacifi ed portions of both ureters demonstrate normal caliber. Other solid organs: Again noted are postsurgical changes from prior left hepatectomy. Multiple hypodense lesions are agai n seen scattered in liver parenchyma not significantly changed in size and distribution as compared t o previous study and are consistent with hepatic metastatic lesions. There is interval placement of a biliary stent. Very mild intrahepatic biliary ductal dilatation is noted, significantly improved sin ce previous study. Spleen is normal in size and enhancement. Gallbladder is surgically absent. Pancreas enhances normall y. No adrenal nodules. Peritoneum and bowel: Bowel loops demonstrate normal wall thickness and caliber. No free fluid or a ir. Nodes and vessels: 1.1 cm right retrocrural lymph node is seen. No other retroperitoneal or mesenter ic adenopathy by size criteria. Aorta and inferior vena cava are normal in size. Abdominal wall: No ventral hernias. Bones: No suspicious bony lesions. No vertebral body compression fractures. IMPRESSION: 1. Prior left hepatic lobe resection and cholecystectomy with post surgical changes. Multiple scatter ed hypodense lesions in liver parenchyma consistent with patient's known liver metastatic disease. 2. Interval placement of a biliary stent. Very mild intrahepatic biliary ductal dilatation and very m ild prominence of the common bile duct proximally significantly improved since previous study. Pancre atic duct is normal in size. 3. Enlarged right retrocrural lymph node concerning for metastatic disease. 4. Numerous subcentimeter pulmonary nodules as above, which may indicate pulmonary metastatic disease . 5. No bowel obstruction. No free fluid of free air. Moderate size hiatal hernia. Reviewed by: Esteban Mccall MD on 12/25/2019 5:27 PM PDT Approved by: Esteban Mccall MD on 12/25/2019 5:27 PM PDT Station ID: [id number]
== END 2019-12-25 13:05 | disposition home or self-care (01) ==
LOC: DI 13:04
PROVIDERS: ATTEND Internal Medicine Hematology & Oncology
DX: C18.9 Malignant neoplasm of colon, unspecified (principal); R79.89 Other specified abnormal findings of blood chemistry; K83.9 Disease of biliary tract, unspecified; C78.7 Secondary malignant neoplasm of liver and intrahepatic bile duct; R59.0 Localized enlarged lymph nodes; R91.8 Other nonspecific abnormal finding of lung field
CPT/HCPCS: 74178; 76705; Q9967

== ENCOUNTER 2019-12-25 18:56 | Emergency (ER) | payer MEDICARE, MEDICAID ==
[2019-12-25] MEDS ORDERED: PIPERACILLIN/TAZOBACTAM 4.5 GM in SODIUM CHLORIDE 0.9% MINIBAG 100 ML IV STA (19:04)
[2019-12-25 19:21] LABS: BASOPHILS % (AUTO) 0.2 %; EOSINOPHILS % (AUTO) 0.2 %; HGB - HEMOGLOBIN 11.9 g/dL (14.0-18.0); LYMPHOCYTES # (AUTO) 1.2 10^3/uL (1.5-3.5); MEAN CORPUSCULAR HEMOGLOBIN 29.6 pg (27.0-31.0); MEAN CORPUSCULAR HGB CONC 33.3 g/dL (32.0-36.0); MEAN CORPUSCULAR VOLUME 88.8 fL (80.0-94.0); MEAN PLATELET VOLUME 10.2 fL (7.4-11.4); MONOCYTES # (AUTO) 0.6 10^3/uL (0.0-1.0); MONOCYTES % (AUTO) 12.6 %; NEUTROPHILS # (AUTO) 3.2 10^3/uL (1.5-6.6); NEUTROPHILS % (AUTO) 62.8 %; PLT - PLATELET COUNT 231 10^3/uL (130-450); RED BLOOD COUNT 4.02 10^6/uL (4.70-6.10); RED CELL DISTRIBUTION WIDTH 16.9 % (12.0-15.0); WHITE BLOOD COUNT 5.1 x10^3/uL (4.8-10.8)
[2019-12-25 19:32] LABS: ALBUMIN 3.2 g/dL (3.2-5.5); ALBUMIN/GLOBULIN RATIO 0.8 (1.0-2.2); BILIRUBIN,TOTAL 3.1 mg/dL (0.2-1.0); CALCIUM 9.1 mg/dL (8.5-10.3)
[2019-12-25] MEDS ORDERED: SODIUM CHLORIDE 0.9% 1,000 ML IV STA ×2 (19:38)
--- NOTE | 2019-12-25 19:45 | ED Physician Documentation ---
History of Present Illness - Stated complaint Stated Complaint: FEVER/ABNORMAL LABS - Chief complaint Chief Complaint: Fever - History obtained from History obtained from: Patient - History of Present Illness Timing: Today Pain level max: 0 Pain level now: 0 - Additonal information Additional information: 69-year-old male presents to the emergency department stating that he has a history of stage IV colon cancer. He was supposed to have chemotherapy today, but it was noted that he had a fever. On laboratory testing his LFTs were elevated. Has a history of biliary duct obstruction had a stent placed several months ago at the [facility]. He is not having any pain. No cough. No congestion. No abdominal pain. Asymptomatic currently. Review of Systems Ten Systems: 10 systems reviewed and negative Constitutional: reports: Fever (38.5 today At the [facility]) Ears: denies: Ear pain Nose: denies: Rhinorrhea / runny nose, Congestion Throat: denies: Sore throat Cardiac: denies: Chest pain / pressure Respiratory: denies: Cough GI: denies: Abdominal Pain, Vomiting, Diarrhea Skin: denies: Rash Musculoskeletal: denies: Neck pain, Back pain Neurologic: denies: Focal weakness, Numbness, Headache PD PAST MEDICAL HISTORY - Past Medical History Cardiovascular: Hypertension Respiratory: COPD, Shortness of breath, Other Endocrine/Autoimmune: None GI: Ulcers, Other : Kidney stones HEENT: None Psych: Depression, Anxiety, Panic attacks Musculoskeletal: Osteoarthritis, Other Derm: None - Past Surgical History Past Surgical History: Yes General: Bowel surgery, Liver surgery, Colonoscopy, Other Ortho: Other HEENT: Tonsil/Adenoidectomy - Present Medications Home Medications: Ambulatory Orders Medication Instructions Recorded Confirmed lisinopriL [Lisinopril] 20 mg PO DAILY 03/08/13 12/25/19 Albuterol Sulf [Ventolin Hfa 2 puffs INH Q4HR PRN 06/29/17 12/25/19 Inhaler] Citalopram [CeleXA] 2 tab PO DAILY 10/18/17 12/25/19 Fluticasone/Salmeterol [Advair 2 spray TANGELA BID 10/18/17 12/25/19 250-50 Diskus] Aspirin [Adult Aspirin Regimen] 81 mg PO DAILY 10/21/19 12/25/19 Cyanocobalamin (Vitamin B-12) 1,000 mcg PO DAILY 10/21/19 12/25/19 [Vitamin B-12] Ipratropium/Albuterol [Combivent 2 puffs IH BID 10/21/19 12/25/19 Respimat] Ondansetron [Ondansetron Odt] 8 mg PO BID PRN 11/07/19 12/25/19 Ciprofloxacin HCl [Cipro] 1 tab PO BID 12/25/19 12/25/19 metroNIDAZOLE [Flagyl] 500 mg PO TID 12/25/19 12/25/19 - Allergies Allergies/Adverse Reactions: Allergies Allergy/AdvReac Type Severity Reaction Status Date / Time nitrous oxide [Nitrous Oxide] AdvReac Hallucinati Verified 12/25/19 11:31 ons tramadol AdvReac Nausea Verified 12/25/19 11:31 - Social History Does the pt smoke?: No Smoking Status: Never smoker Does the pt drink ETOH?: Yes Does the pt have substance abuse?: Yes - Immunizations Immunizations are current?: No Immunizations: TDAP >10years/unknown - POLST Patient has POLST: No POLST Status: Full Code PD ED PE NORMAL - Vitals Vital signs reviewed: Yes - General General: Alert and oriented X 3, No acute distress, Well developed/nourished - HEENT HEENT: PERRL, Moist mucous membranes, Pharynx benign - Neck Neck: Supple, no meningeal sign - Cardiac Cardiac: RRR, No murmur, Strong equal pulses - Respiratory Respiratory: No respiratory distress, Clear bilaterally - Abdomen Abdomen: Normal bowel sounds, Soft, Non tender, Non distended - Back Back: No CVA TTP, No spinal TTP - Derm Derm: Warm and dry, No rash - Extremities Extremities: No edema - Neuro Neuro: Alert and oriented X 3 - Psych Psych: Normal mood, Normal affect Results - Vitals Vitals: Vital Signs - 24 hr 12/25/19 19:06 Temperature 37.2 C Heart Rate 77 Respiratory 16 Rate Blood Pressure 147/74 H O2 Saturation 98 Oxygen O2 Source Room air - Labs Labs: Laboratory Tests 12/25/19 12/25/19 12/25/19 19:09 19:09 19:09 WBC 5.1 RBC 4.02 L Hgb 11.9 L Hct 35.7 L MCV 88.8 MCH 29.6 MCHC 33.3 RDW 16.9 H Plt Count 231 MPV 10.2 Neut # (Auto) 3.2 Lymph # (Auto) 1.2 L Warrick # (Auto) 0.6 Eos # (Auto) 0.0 Baso # (Auto) 0.0 Absolute Nucleated RBC 0.00 Nucleated RBC % 0.0 Sodium 129 L Potassium 4.0 Chloride 96 L Carbon Dioxide 20 L Anion Gap 13.0 BUN 15 Creatinine 1.0 Estimated GFR (MDRD) 75 L Glucose 111 H Lactic Acid 1.6 Calcium 9.1 Total Bilirubin 3.1 H AST 216 H ALT 241 H Alkaline Phosphatase 415 H Total Protein 7.0 Albumin 3.2 Globulin 3.8 Albumin/Globulin Ratio 0.8 L Lipase 76 H - Rads (name of study) Chest x-ray Radiology: Prelim report reviewed, EMP read contemporaneously PD MEDICAL DECISION MAKING - ED course Complexity details: reviewed old records, reviewed results, re-evaluated patient, considered differential, d/w patient, d/w bridal sales consultant ED course: 69-year-old male presents to the emergency department with fever of unclear etiology. Labs are concerning for cholangitis. He does have a stent in place. CT scan was performed as an outpatient as well as an ultrasound of his abdomen. Results of these are below. He was sent to the emergency department from the [facility]. Concern for cholangitis, contacted the [facility] where he was accepted for transfer by Dr. Khai Hull, hospitalist, there are no beds available tonight, plan will be to transfer him in the morning. We will keep him on Zosyn overnight. Patient is well-appearing, nontoxic. Afebrile. Case was discussed at 2100. Patient will be signed out to the [facility] emergency department physician overnight. This document was made in part using voice recognition software. While efforts are made to proofread this document, sound alike and grammatical errors may occur. CT abdomen pelvis 1. Prior left hepatic lobe resection and cholecystectomy with post surgical changes. Multiple scattered hypodense lesions in liver parenchyma consistent with patient's known liver metastatic disease. 2. Interval placement of a biliary stent. Very mild intrahepatic biliary ductal dilatation and very mild prominence of the common bile duct proximally significantly improved since previous study. Pancreatic duct is normal in size. 3. Enlarged right retrocrural lymph node concerning for metastatic disease. 4. Numerous subcentimeter pulmonary nodules as above, which may indicate pulmonary metastatic disease. 5. No bowel obstruction. No free fluid of free air. Moderate size hiatal hernia. RUQ US 1. Heterogeneous appearance of the liver with the previously identified hepatic mass lesions seen on CT not discretely visualized. Consider follow-up CT with contrast for further evaluation. 2. Intrahepatic biliary ductal dilatation redemonstrated. An obstructing mass cannot be excluded. Further evaluation may be obtained with CT or MRI. Departure - Departure Disposition: 02 Transfer Acute Care Hosp Clinical Impression: Cholangitis Fever Qualifiers: Fever type: unspecified Qualified Code(s): R50.9 - Fever, unspecified Condition: Stable
[2019-12-25 21:17] LABS: INR 1.2 (0.8-1.2); PT - PROTHROMBIN TIME 13.5 secs (9.9-12.6)
--- NOTE | 2019-12-25 21:22 | XRAY Report ---
PROCEDURE: Chest 1 View X-Ray INDICATIONS: fever TECHNIQUE: One view of the chest was acquired. COMPARISON: CT chest dated 10/31/2019 FINDINGS: Surgical changes and devices: Left chest wall Port-A-Cath tip is in SVC. Lungs and pleura: No pleural effusions or pneumothorax. Lungs are clear. Mediastinum: Mediastinal contours appear normal. Heart size is normal. Bones and chest wall: No suspicious bony lesions. Overlying soft tissues appear unremarkable. IMPRESSION: No focal infiltrate, pleural effusion or pneumothorax. Reviewed by: Esteban Mccall MD on 12/25/2019 9:21 PM PDT Approved by: Esteban Mccall MD on 12/25/2019 9:21 PM PDT Station ID: [id number]
[2019-12-25 21:24] LABS: PARTIAL THROMBOPLASTIN TIME 26.3 secs (24.9-33.3)
[2019-12-25] MEDS ORDERED: ONDANSETRON 4 MG/2 ML VIAL IVP STA (23:51)
[2019-12-25] MEDS ORDERED: MORPHINE 2 MG/ML CARPUJECT IVP STA (23:51)
[2019-12-26] MEDS ORDERED: PIPERACILLIN/TAZOBACTAM 4.5 GM in SODIUM CHLORIDE 0.9% MINIBAG 100 ML IV STA ×2 (01:02→07:02)
[2019-12-26] MEDS ORDERED: SODIUM CHLORIDE 0.9% 1,000 ML IV STA (04:01)
[2019-12-26 07:59] VITALS: BP 147/91
== END 2019-12-26 14:39 | disposition short-term general hospital (02) ==
LOC: ED 18:56
DX: K83.09 Other cholangitis (principal); R50.9 Fever, unspecified; C18.9 Malignant neoplasm of colon, unspecified; Z79.899 Other long term (current) drug therapy
CPT/HCPCS: 36415; 71045; 80053; 83605; 83690; 85025; 85610; 85730; 87040; 96361; 96365; 96366; 96375; 99284

== ENCOUNTER 2019-12-26 13:59 | Outpatient (CLI) | payer MEDICARE, MEDICAID | END 2019-12-26 14:00 | disposition short-term general hospital (02) | LOC: EMS 13:59 | PROVIDERS: ATTEND Surgery | DX: K83.09 Other cholangitis (principal) | CPT/HCPCS: A0425; A0426 ==

== ENCOUNTER 2020-02-07 13:36 | Outpatient (CLI) | payer MEDICARE, MEDICAID | END 2020-02-07 13:37 | disposition critical access hospital (66) | LOC: EMS 13:36 | PROVIDERS: ATTEND Surgery | DX: R22.1 Localized swelling, mass and lump, neck (principal) | CPT/HCPCS: A0425; A0427 ==

== ENCOUNTER 2020-02-07 14:12 | Emergency (ER) | payer MEDICARE, MEDICAID ==
[2020-02-07] MEDS ORDERED: DEXAMETHASONE 10 MG/ML VIAL IVP STA (14:23)
[2020-02-07] MEDS ORDERED: diphenhydrAMINE INJ 50 MG/ML VIAL IVP STA (14:24)
--- NOTE | 2020-02-07 14:26 | ED Physician Documentation ---
History of Present Illness - Stated complaint Stated Complaint: THROAT SWELLING - Chief complaint Chief Complaint: General - History obtained from History obtained from: Patient, EMS - History of Present Illness Timing: Today - Additonal information Additional information: 69-year-old male with a complicated history of lung cancer is on lisinopril and today he awoke with swelling under his tongue and on his neck. He has had something similar to this happen to him once previously and this spontaneously resolved. He is not short of breath he did have some trouble with his voice earlier and that seems already to be resolving spontaneously. He went to the clinic and they put him in an ambulance to come up to the hospital. Review of Systems Constitutional: denies: Fever Eyes: denies: Decreased vision Ears: denies: Ear pain Nose: denies: Rhinorrhea / runny nose, Congestion Throat: reports: Other (Swelling under the tongue and under the chin). denies: Sore throat Cardiac: denies: Chest pain / pressure, Palpitations Respiratory: denies: Dyspnea GI: denies: Vomiting, Diarrhea : denies: Dysuria PD PAST MEDICAL HISTORY - Past Medical History Cardiovascular: Hypertension Respiratory: COPD, Shortness of breath, Other Endocrine/Autoimmune: None GI: Ulcers, Other : Kidney stones HEENT: None Psych: Depression, Anxiety, Panic attacks Musculoskeletal: Osteoarthritis, Other Derm: None - Past Surgical History Past Surgical History: Yes General: Bowel surgery, Liver surgery, Colonoscopy, Other Ortho: Other HEENT: Tonsil/Adenoidectomy - Present Medications Home Medications: Ambulatory Orders Medication Instructions Recorded Confirmed RX: lisinopriL [Lisinopril] 20 mg PO DAILY 03/08/13 01/29/20 Albuterol Sulf [Ventolin Hfa 2 puffs INH Q4HR PRN 06/29/17 01/29/20 Inhaler] Fluticasone/Salmeterol [Advair 2 spray TANGELA BID 10/18/17 01/29/20 250-50 Diskus] RX: Citalopram [CeleXA] 2 tab PO DAILY 10/18/17 01/29/20 Aspirin [Adult Aspirin Regimen] 81 mg PO DAILY 10/21/19 01/29/20 Cyanocobalamin (Vitamin B-12) 1,000 mcg PO DAILY 10/21/19 01/29/20 [Vitamin B-12] Ipratropium/Albuterol [Combivent 2 puffs IH BID 10/21/19 01/29/20 Respimat] Ondansetron [Ondansetron Odt] 8 mg PO BID PRN 11/07/19 01/29/20 Ciprofloxacin HCl [Cipro] 1 tab PO BID 12/25/19 01/29/20 metroNIDAZOLE [Flagyl] 500 mg PO TID 12/25/19 01/29/20 RX: Acyclovir 400 mg PO QID 01/15/20 01/29/20 Triamcinolone 0.1% Cream [Kenalog 10 gm TOP TID 01/15/20 01/29/20 0.1% Cream] RX: amLODIPine [Norvasc] 5 mg PO DAILY #20 tablet 02/07/20 - Allergies Allergies/Adverse Reactions: Allergies Allergy/AdvReac Type Severity Reaction Status Date / Time nitrous oxide [Nitrous Oxide] AdvReac Hallucinati Verified 02/07/20 14:21 ons tramadol AdvReac Nausea Verified 02/07/20 14:21 - Social History Does the pt smoke?: No Smoking Status: Never smoker Does the pt drink ETOH?: Yes Does the pt have substance abuse?: Yes - Immunizations Immunizations are current?: No Immunizations: TDAP >10years/unknown - POLST Patient has POLST: No POLST Status: Full Code PD ED PE NORMAL - Vitals Vital signs reviewed: Yes (Hypertensive marked) - General General: Alert and oriented X 3, No acute distress, Well developed/nourished - HEENT HEENT: Atraumatic, PERRL, EOMI, Other (There is edema under the tongue pushing the tongue up and not to the lips. There is swelling under the chin to the soft tissues it is nontender. The patient's voice is normal.) - Neck Neck: Supple, no meningeal sign, No bony TTP - Cardiac Cardiac: RRR, No murmur - Respiratory Respiratory: No respiratory distress, Clear bilaterally - Abdomen Abdomen: Soft, Non tender - Back Back: No CVA TTP, No spinal TTP - Derm Derm: Normal color, Warm and dry, No rash - Extremities Extremities: No deformity, No edema - Neuro Neuro: Alert and oriented X 3, core winding operator 2-12 intact, No motor deficit, No sensory deficit, Normal speech Eye Opening: Spontaneous Motor: Obeys Commands Verbal: Oriented GCS Score: 15 - Psych Psych: Normal mood, Normal affect Results - Vitals Vitals: Vital Signs - 24 hr 02/07/20 02/07/20 14:15 14:21 Temperature 36.1 C L Heart Rate 80 83 Respiratory 18 13 Rate Blood Pressure 175/134 H 137/98 H O2 Saturation 97 96 Oxygen O2 Source Room air PD MEDICAL DECISION MAKING - ED course Complexity details: reviewed results, re-evaluated patient, considered trudy chun, d/w patient ED course: 69-year-old male with swelling under his tongue on his neck has angioedema and he is on lisinopril. He is administered dexamethasone 10 mg intravenously and Benadryl 25 mg intravenously. Prior to administration of these medicines he is already having some improvement in his swelling. We will need to change his antihypertensive medication. I called the clinic and spoke to a provider who recommended amlodipine and we will start him on 5mg daily. Departure - Departure Disposition: Home, Self Care Clinical Impression: Angio-edema Qualifiers: Encounter type: initial encounter Qualified Code(s): T78.3XXA - Angioneurotic edema, initial encounter Condition: Stable Instructions: ED Angioedema Follow-Up: Ashley Santos ARNP [Credentialed Staff Provider] - Prescriptions: RX: amLODIPine [Norvasc] 5 mg PO DAILY #20 tablet Comments: Today it appears you have this angioedema which is usually a result of taking the medication lisinopril. Stop taking your lisinopril and start on a new medication amlodipine. Follow-up with your primary care provider in the next 2 weeks for a blood pressure recheck.
[2020-02-07 15:36] VITALS: BP 144/96
== END 2020-02-07 15:43 | disposition home or self-care (01) ==
LOC: EDUNIT# → ED 14:12
DX: T78.3XXA Angioneurotic edema, initial encounter (principal); J44.9 Chronic obstructive pulmonary disease, unspecified; I10 Essential (primary) hypertension
CPT/HCPCS: 96374; 99283; 99284; J1200

== ENCOUNTER 2020-07-21 12:41 | Emergency (ER) | payer MEDICARE, MEDICAID ==
[2020-07-21] MEDS ORDERED: HYDROmorphone 1 MG/ML CARPUJECT IVP STA ×2 (13:21→15:30)
[2020-07-21] MEDS ORDERED: SODIUM CHLORIDE 0.9% 1,000 ML IV STA (13:21)
--- NOTE | 2020-07-21 13:23 | ED Physician Documentation ---
PD HPI ABD PAIN - Stated complaint Stated Complaint: STINT PAIN - Chief complaint Chief Complaint: Abd Pain - History obtained from History obtained from: Patient - Additional information Additional information: 69-year-old gentleman with widely metastatic colon cancer, has issues with biliary obstruction. Current stent placed to the [facility] has been in for about 6 months. Over the last 2 weeks he has had progressive upper abdominal pain associated with a light thin profuse stools. No fevers. Feels like previous stent obstructions. Review of Systems Ten Systems: 10 systems reviewed and negative Constitutional: denies: Fever, Chills Eyes: reports: Reviewed and negative Ears: reports: Reviewed and negative Nose: reports: Reviewed and negative Throat: reports: Reviewed and negative Cardiac: reports: Reviewed and negative PD PAST MEDICAL HISTORY - Past Medical History Cardiovascular: Hypertension Respiratory: COPD, Shortness of breath, Other Endocrine/Autoimmune: None GI: Ulcers, Other : Kidney stones HEENT: None Psych: Depression, Anxiety, Panic attacks Musculoskeletal: Osteoarthritis, Other Derm: None - Past Surgical History Past Surgical History: Yes General: Bowel surgery, Liver surgery, Colonoscopy, Other Ortho: Other HEENT: Tonsil/Adenoidectomy - Present Medications Home Medications: Ambulatory Orders Medication Instructions Recorded Confirmed Albuterol Sulf [Ventolin Hfa 2 puffs INH Q4HR PRN 06/29/17 07/08/20 Inhaler] Citalopram [CeleXA] 2 tab PO DAILY 10/18/17 07/08/20 Fluticasone/Salmeterol [Advair 2 spray TANGELA BID 10/18/17 07/08/20 250-50 Diskus] Aspirin [Adult Aspirin Regimen] 81 mg PO DAILY 10/21/19 07/08/20 Cyanocobalamin (Vitamin B-12) 1,000 mcg PO DAILY 10/21/19 07/08/20 [Vitamin B-12] Ipratropium/Albuterol [Combivent 2 puffs IH BID 10/21/19 07/08/20 Respimat] Ondansetron [Ondansetron Odt] 8 mg PO BID PRN 11/07/19 07/08/20 Mouthwash Compounding Base 227 5 ml ORAL QID MDD 5-6 times 02/12/20 07/08/20 [Mouthwash-Om] LORazepam [Lorazepam] 0.5 mg PO UD PRN #60 tablet 03/25/20 07/08/20 Nystatin 5 ml PO QID PRN 04/01/20 07/08/20 Zolpidem [Ambien] 5 mg PO QPM PRN 04/23/20 07/08/20 amLODIPine [Norvasc] 10 mg PO DAILY 04/29/20 07/08/20 Amox/Clav 875/125 [Augmentin] 1 each PO Q12H #20 tablet 06/24/20 07/08/20 Omeprazole 40 mg PO DAILY #30 cap 07/21/20 Oxycodone HCl/Acetaminophen 1 - 2 each PO Q6H PRN #20 tab 07/21/20 [Percocet 5-325 mg Tablet] - Allergies Allergies/Adverse Reactions: Allergies Allergy/AdvReac Type Severity Reaction Status Date / Time nitrous oxide [Nitrous Oxide] AdvReac Hallucinati Verified 07/21/20 12:50 ons tramadol AdvReac Nausea Verified 07/21/20 12:50 - Social History Does the pt smoke?: No Smoking Status: Never smoker Does the pt drink ETOH?: Yes Does the pt have substance abuse?: Yes - Family History Family history: reports: Non contributory - Immunizations Immunizations are current?: No Immunizations: TDAP >10years/unknown - POLST Patient has POLST: No POLST Status: Full Code PD ED PE NORMAL - Vitals Vital signs reviewed: Yes - General General: Alert and oriented X 3, No acute distress - HEENT HEENT: PERRL, EOMI, Other (No significant scleral icterus) - Neck Neck: Supple, no meningeal sign, No bony TTP - Cardiac Cardiac: RRR, No murmur - Respiratory Respiratory: No respiratory distress, Clear bilaterally - Abdomen Abdomen: Other (Mild upper abdominal tenderness without surgical signs) - Back Back: No CVA TTP, No spinal TTP - Derm Derm: Normal color, Warm and dry - Extremities Extremities: No edema, No calf tenderness / cord - Neuro Neuro: Alert and oriented X 3, Normal speech Results - Vitals Vitals: Vital Signs - 24 hr 07/21/20 07/21/20 07/21/20 12:45 13:53 14:58 Temperature 36.3 C L 37.2 C Heart Rate 86 66 77 Respiratory 17 18 16 Rate Blood Pressure 131/84 H 122/82 H O2 Saturation 97 100 Oxygen O2 Source Room air - Labs Labs: Laboratory Tests 07/21/20 07/21/20 13:14 13:14 WBC 9.6 RBC 3.53 L Hgb 12.2 L Hct 37.2 L MCV 105.4 H MCH 34.6 H MCHC 32.8 RDW 20.4 H Plt Count 204 MPV 10.7 Neut # (Auto) 6.7 H Lymph # (Auto) 1.3 L Waller # (Auto) 1.4 H Eos # (Auto) 0.1 Baso # (Auto) 0.0 Absolute Nucleated RBC 0.00 Nucleated RBC % 0.0 Manual Slide Review Indicated Platelet Estimate NORMAL (130-450,000) Platelet Morphology NORMAL APPEARANCE RBC Morph Micro Appear 2+ ANISOCYTOSIS Sodium 138 Potassium 4.1 Chloride 101 Carbon Dioxide 24 Anion Gap 13.0 BUN 23 H Creatinine 0.9 Estimated GFR (MDRD) 84 L Glucose 119 H Calcium 10.0 Total Bilirubin 1.0 AST 31 ALT 25 Alkaline Phosphatase 141 H Total Protein 7.4 Albumin 4.0 Globulin 3.4 Albumin/Globulin Ratio 1.2 Lipase 21 L PD MEDICAL DECISION MAKING - ED course ED course: 69-year-old gentleman with a biliary stents presents with symptoms of upper abdominal pain consistent with prior episodes of stent obstruction. His transaminases and bilirubin are normal suggesting there is no stent blockage and a CT shows mild inflammation around the stent but no other complication. Note made of the wall thickening of the urinary bladder on CT read. He has no symptoms referable to this. Departure - Departure Disposition: 01 Home, Self Care Clinical Impression: Abdominal pain Condition: Stable Record reviewed to determine appropriate education?: Yes Prescriptions: Omeprazole 40 mg PO DAILY #30 cap Oxycodone HCl/Acetaminophen [Percocet 5-325 mg Tablet] 1 - 2 each PO Q6H PRN #20 tab PRN Reason: pain Comments: You are seen today for pain similar to prior stent blockage. There is no evidence of stent blockage, but there is mild inflammation around the stents. I think this will respond to a combination of pain medications and an antiacid medication which are both prescribed. Follow-up with your oncologist's as scheduled. Return for new or worsening symptoms.
[2020-07-21 13:33] LABS: ALBUMIN/GLOBULIN RATIO 1.2 (1.0-2.2); CREATININE 0.9 mg/dL (0.6-1.2); POTASSIUM 4.1 mmol/L (3.5-5.0); TOTAL PROTEIN 7.4 g/dL (6.7-8.2)
[2020-07-21] MEDS ORDERED: IPRATROPIUM/ALBUTEROL 3 ML NEB INH STA (13:40)
[2020-07-21 13:45] LABS: BASOPHILS % (AUTO) 0.3 %; EOSINOPHILS # (AUTO) 0.1 10^3/uL (0.0-0.7); EOSINOPHILS % (AUTO) 1.4 %; HCT - HEMATOCRIT 37.2 % (42.0-52.0); HGB - HEMOGLOBIN 12.2 g/dL (14.0-18.0); LYMPHOCYTES # (AUTO) 1.3 10^3/uL (1.5-3.5); LYMPHOCYTES % (AUTO) 13.3 %; MEAN CORPUSCULAR HEMOGLOBIN 34.6 pg (27.0-31.0); MEAN CORPUSCULAR HGB CONC 32.8 g/dL (32.0-36.0); MEAN CORPUSCULAR VOLUME 105.4 fL (80.0-94.0); MEAN PLATELET VOLUME 10.7 fL (7.4-11.4); MONOCYTES # (AUTO) 1.4 10^3/uL (0.0-1.0); MONOCYTES % (AUTO) 14.7 %; NEUTROPHILS # (AUTO) 6.7 10^3/uL (1.5-6.6); NEUTROPHILS % (AUTO) 69.9 %; PLT - PLATELET COUNT 204 10^3/uL (130-450); RED BLOOD COUNT 3.53 10^6/uL (4.70-6.10); RED CELL DISTRIBUTION WIDTH 20.4 % (12.0-15.0); WHITE BLOOD COUNT 9.6 x10^3/uL (4.8-10.8)
[2020-07-21 13:49] LABS: SLIDE REVIEW? Indicated
[2020-07-21] MEDS ORDERED: IOVERSOL 320 100 ML VIAL IVP ONE ×2 (13:53→14:55)
[2020-07-21 13:58] LABS: PLATELET ESTIMATE, MANUAL NORMAL (130-450,000) (NORMAL); PLATELET MORPHOLOGY NORMAL APPEARANCE (NORMAL); RBC MORPHOLOGY (MULTIPLE) 2+ ANISOCYTOSIS (NORMAL)
--- NOTE | 2020-07-21 15:09 | CT Report ---
PROCEDURE: Abdomen/Pelvis W INDICATIONS: IV only, upper abd pain CONTRAST: IV CONTRAST: Optiray 320 ml: 100 PO CONTRAST: *NO PO CONTRAST TECHNIQUE: After the administration of nonionic contrast, 5 mm thick sections acquired from the diaphragms to th e symphysis. 5 mm thick coronal and sagittal reformats were acquired. For radiation dose reduction, the following was used: automated exposure control, adjustment of mA and/or kV according to patient size. COMPARISON: 03/11/2020 FINDINGS: Image quality: Excellent. ABDOMEN: Lung bases: Multiple nodular opacities are noted throughout the lung bases. These are grossly unchang ed from most recent examination. Emphysematous changes of the lung bases. Inferior mediastinum is unr emarkable. Solid organs: Multiple hypodensities noted throughout the liver are again noted. There is mild intrah epatic ductal dilation. There is unchanged appearance of stent within the extrahepatic bile ducts. St atus post cholecystectomy. Pancreas enhances normally. No adrenal nodules. Kidneys demonstrate norm al size and enhancement, without hydronephrosis. Peritoneum and bowel: Stomach is unremarkable in appearance. Adjacent to the proximal portion of the duodenum there is a small amount of inflammation. No definite wall thickening. This extends adjacent to the gallbladder fossa as well. There is no evidence of obstruction. The appendix is normal. Modera te stool burden noted throughout the colon. Postsurgical changes of partial left colectomy. A few rig ht colonic diverticula. There is no ascites. No pneumoperitoneum. Nodes and vessels: No retroperitoneal or mesenteric adenopathy by size criteria. Aorta and inferior vena cava are normal in size. Miscellaneous: Ventral hernia is again noted inferior to the umbilicus containing a small loop of sma ll bowel. No wall thickening or surrounding inflammation. PELVIS: Genitourinary: The bladder is only mildly distended without focal wall thickening. Questionable mild diffuse wall thickening. Miscellaneous: No inguinal hernias or adenopathy. Prostatomegaly. Bones: No suspicious bony lesions. Degenerative changes of the spine with partial fusion of L2 and L3. Unchanged grade 1 retrolisthesis of L3 on L4. No vertebral body compression fractures. IMPRESSION: Adjacent to the proximal duodenum extending along the gallbladder fossa there is a small amount of in flammation. This may be due to the inflammation from the adjacent stent within the extrahepatic bile ducts versus duodenitis. No focal fluid collection. Unchanged metastatic disease within the chest and liver. Small ventral hernia just superior to the symphysis pubis containing a loop of small bowel. No wall t hickening or surrounding inflammation to suggest complication. Mild wall thickening of the bladder likely due to outlet obstruction given prostatomegaly. Recommend correlation with urinalysis to exclude cystitis. Reviewed by: Jhoan Jiménez DO on 07/21/2020 2:08 PM [facility] Approved by: Jhoan Jiménez DO on 07/21/2020 2:08 PM [facility] Station ID: [id number]
[2020-07-21 15:52] VITALS: BP 120/80
== END 2020-07-21 16:53 | disposition home or self-care (01) ==
LOC: ED 12:41
DX: R10.10 Upper abdominal pain, unspecified (principal); C18.9 Malignant neoplasm of colon, unspecified; C79.9 Secondary malignant neoplasm of unspecified site; I10 Essential (primary) hypertension; Z96.89 Presence of other specified functional implants
CPT/HCPCS: 36415; 74177; 80053; 83690; 85025; 94640; 96374; 96376; 99284; 99285; J1170; Q9967

== ENCOUNTER 2020-08-12 09:10 | Outpatient (CLI) | payer MEDICARE, MEDICAID ==
--- NOTE | 2020-08-12 18:14 | CONSULTATION NOTE ---
Palliative Care Consultation - Referral Referring Provider: Dr. Frankie Parker Time of Visit: [id number] Referral setting: [facility] [place] Referral Reason: Anxiety/Met Colon CA/Goals of Care - Information Sources Records reviewed: Previous records reviewed History/Review of Systems obtained from: Patient Exam limitations: No limitations - History of Present Illness Brief History of Present Illness: This is a 69-year-old gentleman with metastatic colon cancer, reestablishing with palliative care. Patient was seen in [id number], until he transition to surveillance only. Patient has had a long-term journey with his cancer, almost 10 years. His initial diagnosis was stage II in 2010, where he received at that time a left hemicolectomy, with a T3 lesion and 0/26 nodes involved. He did not receive any adjuvant chemotherapy at that point in time. He presented in 2013 with stage IV colon cancer with metastatic disease to the lung, received chemotherapy, including also surgery for a left lower lobe wedge resection. He had progression of disease in 2015 with metastatic disease to the liver, received therapy yet again, and including a partial hepatic ectomy and abdominal wall incision, followed by maintenance therapy. And then continued on surveillance,. He did present with recurrence in 08/2018 with mets in the surgical bed at the liver, with resection on 11/2018. 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 Where he presented with a malignant biliary obstruction, and was seen at [facility] and received a biliary stent. At that point in time he was restarted on FOLFOX/Avastin, but with frequent interruptions needing a stent replacement and December 2019, and again a metal stent replacement 03/12/2020. He has been on maintenance bevacizumab/5-FU since 05/2020, but presented again in the last couple weeks with increased pain, with CT scan showing the ED some inflammation process possibly from the stent, and has been on antibiotics of Cipro and Flagyl for the week. Patient symptom burden includes some acute on chronic pain in the abdominal area, persistent fatigue and drowsiness, he has had a 20 pound weight loss since I last saw him in 2018, continues with longstanding underlying anxiety disorder, and multiple social stressors. Patient has been long-term on treatment, does not entertain easily the seriousness of his illness, and perceives will continue to receive treatment long-term. Patient has always expressed his goals, in the context of his relationship with his "grandson" Bobby, that he is the reason he continues to push forward and live. Medical/Surgical History - Past Medical History Cardiovascular: reports: Hypertension Respiratory: reports: COPD, Shortness of breath Neuro: reports: None Endocrine/Autoimmune: reports: None GI: reports: Ulcers, Other (liver mets with stent placement) : reports: Kidney stones HEENT: reports: Chronic sinusitis Psych: reports: Depression, Anxiety, Panic attacks Musculoskeletal: reports: Osteoarthritis, Fatigue, Other (carpal tunnel syndrome right) Derm: reports: None MRSA Hx?: No - Past Surgical History General: reports: Bowel surgery, Liver surgery, Colonoscopy, Other (bilary stent placement x 3) Ortho: reports: Other (left ankle surgery) Cardiovascular: reports: Other (portacath) HEENT: reports: Tonsil/Adenoidectomy - Substance History Use: Uses substance without health or social issues: Cannabis Social History - Living Situation Living arrangement: At home Living Situation: Alone Support System: Patient has a long-term history with Shantelle, who is his best friend, they have been "together" for 15 to 20 years. Shantelle's sisters grandson, is Bobby, he is now 15. He has been involved in his life for 10+ years, and calls him "his grandson". Patient is not , nor has any children. [place] have a brother[place]. 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 He continues to be challenged with financial stressors, he is going to have to move in the next 2 months, and is finding this stressful and anxiety producing as well. Family History - Family History Family History: Mother: , Cancer (mother of lung cancer; father of leukemia), Father: , Cancer, Brother: Alive and Well Medications/Allergies - Medications Home Medications: Ambulatory Orders Medication Instructions Recorded Confirmed Albuterol Sulf [Ventolin Hfa 2 puffs INH Q4HR PRN 06/29/17 08/13/20 Inhaler] Citalopram [CeleXA] 30 mg PO DAILY 10/18/17 08/13/20 Fluticasone/Salmeterol [Advair 2 spray TANGELA BID 10/18/17 08/13/20 250-50 Diskus] Aspirin [Adult Aspirin Regimen] 81 mg PO DAILY 10/21/19 08/13/20 Cyanocobalamin (Vitamin B-12) 1,000 mcg PO DAILY 10/21/19 08/13/20 [Vitamin B-12] Ipratropium/Albuterol [Combivent 2 puffs IH BID 10/21/19 08/13/20 Respimat] Ondansetron [Ondansetron Odt] 8 mg PO BID PRN 11/07/19 08/13/20 Mouthwash Compounding Base 227 5 ml ORAL QID MDD 5-6 times 02/12/20 08/13/20 [Mouthwash-Om] LORazepam [Lorazepam] 0.5 mg PO UD PRN #60 tablet 03/25/20 08/13/20 Nystatin 5 ml PO QID PRN 04/01/20 08/13/20 Zolpidem [Ambien] 10 mg PO QPM PRN 04/23/20 08/13/20 amLODIPine [Norvasc] 10 mg PO DAILY 04/29/20 08/13/20 Omeprazole 40 mg PO DAILY #30 cap 07/21/20 08/13/20 Umeclidinium [place] [Incruse 1 inh INH DAILY 08/13/20 08/13/20 Ellipta] oxyCODONE/ACET 5/325 [Percocet 5 1 - 2 each PO Q4HR PRN 08/13/20 08/13/20 mg/325 mg] - Allergies Allergies/Adverse Reactions: Allergies Allergy/AdvReac Type Severity Reaction Status Date / Time nitrous oxide [Nitrous Oxide] AdvReac Hallucinati Verified 08/05/20 09:47 ons tramadol AdvReac Nausea Verified 08/05/20 09:47 Review of Systems - Constitutional Constitutional: reports: Fatigue, Weakness, Weight loss (142). denies: Fever, Chills - Eyes Eyes: reports: Vision loss - Ears, Nose & Throat Ears, Nose & Throat: reports: Hearing loss, Dental decay, Dry mouth. denies: Mouth lesions (improved) - Cardiovascular Cardiovascular: reports: Lightheadedness, Decr. exercise tolerance. denies: Edema - Respiratory Respiratory: reports: Cough, SOB at rest, SOB with exertion - Gastrointestinal Gastrointestinal: reports: Abdominal pain (right upper quadrant; attributes to stent; using 2 percocet at bedtime; marijuana), Diarrhea (loose stools; does not take anything to counteract), Early satiety. denies: Nausea - Musculoskeletal Musculoskeletal: reports: Back pain, Muscle aches, Stiffness, Muscle weakness - Integumentary Integumentary: reports: Dryness, Hair changes (thinning) - Neurological Neurological: reports: General weakness, Numbness, Memory problems. denies: Headache - Psychiatric Psychiatric: reports: Anxiety - Hematologic/Lymphatic Hematologic/Lymph: reports: Anemia (13.2), Recurrent infections (stent; just finishing cipro/flagyl) - All Other Systems All Other Systems: reports: Reviewed and negative Physical Exam - Physical Exam General Appearance: positive: No acute distress, Alert, Other (tired; slept poorly because up early) Eyes Bilateral: positive: Normal inspection, No scleral icterus ENT: positive: No signs of dehydration Neck: positive: Trachea midline Cardiovascular: positive: Regular rate & rhythm Respiratory: positive: Diminished throughout. negative: Wheezes Abdomen: positive: Soft, Tenderness (with deep palpation RUQ) Skin: positive: Pallor, Dryness Extremities: positive: No pedal edema Neurologic/Psychiatric: positive: Oriented x3, Flat affect Palliative Care - POLST Patient has POLST: No POLST Status: Full Code Pain: Pain improved, Location (RUQ), Severity Tiredness/Fatigue: Severe (7-10) (limits activity) Drowsiness/Sedation: Moderate (4-6) Nausea: None Anorexia: Mild (1-3), Weight loss (using Ensure) Dyspnea: Moderate (4-6) Depression: None Anxiety: Mild (1-3) Feelings of wellbeing/Perceived Quality of Life: Good, Acceptable, No change Sleep: Sleeps poorly, Variable sleep pattern Constipation: No Performance Status: Patient reports activity tolerance limited by his dyspnea on exertion. Also has persistent fatigue, and is able to manage his ADLs. He is still driving. - Palliative Care Discussion: Patient reports "I am not planning on checking out for very long time". Patient has received ongoing treatment on and off for over 10 years, does not acknowledge the seriousness of his illness. He continues to live for his time and ability to support Bobby. He continues with multiple financial and social stressors, but overall feels life is worth living. He does have underlying anxiety, difficulty with insomnia, but finds his reason to keep going related to this relationship. We did discuss in the context of the his DPOA, which we had done back in 2016, he still has his brother with follow-up with his nephew as a sign. We did discuss in the context of Shantelle, at this point in time as she knows him the best may be a better voice for him. She he will consider this, but does not want to "put it on her either". We will continue to explore further advance care planning in the future, patient remains quite hopeful, though does present prognositically with weight loss, progressive disease, and increased sequela and complications from his stent. Results - Lab Results Lab results reviewed: Yes Impression and Recommendations - Palliative Care Impression: This is a 69-year-old gentleman with metastatic colon cancer, to the liver, nodes, and lungs. Continues to receive ongoing maintenance treatment, is having complications with his stent, has mild to moderate symptom burden, and continued complex social situation. Palliative care has been asked to reestablish with patient, will continue to address symptom management, and anticipatory guidance. Recommendations/Counseling Done: 1. Acute on chronic right upper abdominal pain. Patient attributes this to his stent, has had only mild improvement with antibiotics. Is awaiting follow-up with [facility] for appointment with GI for possible replacement and/or evaluation. Patient perceives pain is currently manageable with Percocet 2 at bedtime, otherwise uses his marijuana for ongoing chronic pain intermittently. Counseling provided regarding if patient has persistent or uncontrolled pain other options, will continue to monitor. 2. Anxiety. Patient anxiety is multifactorial, including both social/financial stressors as well as ongoing management of his disease. Patient in the past has had difficulty with medication adherence, will follow up if needs further support or titration of medications. [facility] [place] [facility] as pending moved, recommended follow-up with social economist, though limited subsidized housing [facility], though [facility] does have more openings. Patient does not want to relocate. 3. Metastatic colon cancer. Patient to receive treatment today, patient has been treated with multiple lines of chemotherapy, surgical interventions, and now with sequela of stent placement and complications. Patient remains committed to continue treatment and extended quantity of life in the context of his goals. 4. Weight loss. Patient has incorporated use of Ensure, is trying to regain weight, feels 150 would be an ideal weight. Patient denies anorexia regarding this, but does have difficult wake sleep cycles, for consistent meal prep. 5. Advanced care planning. Revisited patient's goals of care, remains committed to treatment, discussed DPOA, as well as current priorities, will continue to explore in future visits. Palliative care reestablishing rapport. 45 minutes with greater than 50% of this done in counseling regarding symptom management, role of palliative care, and anticipatory guidance.
== END 2020-08-12 09:11 | disposition home or self-care (01) ==
LOC: PC 09:10
PROVIDERS: ATTEND Nurse Practitioner Adult Health
DX: Z51.5 Encounter for palliative care (principal); R10.11 Right upper quadrant pain; F41.9 Anxiety disorder, unspecified; C18.9 Malignant neoplasm of colon, unspecified; C78.7 Secondary malignant neoplasm of liver and intrahepatic bile duct; C78.00 Secondary malignant neoplasm of unspecified lung; C77.9 Secondary and unspecified malignant neoplasm of lymph node, unspecified; R63.4 Abnormal weight loss
CPT/HCPCS: 99204

== ENCOUNTER 2020-09-23 10:12 | Outpatient (CLI) | payer MEDICARE, MEDICAID ==
--- NOTE | 2020-09-23 10:58 | CONSULTATION NOTE ---
Palliative Care Follow Up - Referral Referring Provider: Dr. Frankie Parker Time of Visit: 1000/ Total time 60 minutes [place] [facility] [place] Reason: Anxiety/Constipation/Wt. Loss/Met Colon CA - Information Sources Records reviewed: Previous records reviewed, Other (labs) History/Review of Systems obtained from: Patient Exam limitations: No limitations - History of Present Illness Update Brief HPI Update: This is a 69-year-old gentleman with metastatic colon cancer, his initial diagnosis was stage II in 2010. He had progression of disease in 2015 with metastatic disease to liver, received therapy again, including a partial hepatectomy, abdominal wall incision for mets, followed by maintenance therapy, and then he continued on surveillance. Unfortunately he did have a recurrence in 08/2018 with mets to the surgical bed of the liver, with resection on 11/2018. He most recently presented with recurrent stage IV sigmoid colon cancer to the liver nodes and lung since 10/31, right presented with a malignant biliary obstruction and was seen at [facility] and received a biliary stent. At this point time he was restarted on FOLFOX/Avastin with frequent interruptions needing a stent replacement in December 2019 and again a metal stent replacement in 02/2020. He has been on maintenance bevacizumab/5-FU since 05/2020, continues with increased right upper quadrant pain, reports it is mostly plateaued. Though unfortunately has also presented with a 12 pound weight loss over the last 6 weeks, reporting early satiety, denying nausea, right upper quadrant is most painful at night. It is tender to palpation, his mostly a dull ache continuously, but intermittently grabbing. He is awaiting again follow-up from [facility], has a telephone consult on 10/17, with hope to have stent replaced. His understanding is there is an abscess surrounding the stent. He did have a trial of antibiotics Cipro and Flagyl without much improvement. Denies any systemic signs or symptoms of infection, no chills, and/or fever. Patient continues to have difficulty acknowledging the seriousness of his illness, he has been on treatment for a long period of time, and continues to perceive treatment will continue. He does have multiple social and financial stressors, admits to underlying anxiety, but continues to try and stay positive. His relationship with his friend Bobby gives him something "to live for". Social History - Living Situation Living arrangement: At home Living Situation: Alone Support System: Patient has support from a fpc friend Shantelle, though they do not live together, they have been "together" for 15 to 20 years. Shantelle's sisters grandson, Bobby, is now 15. He is involved in his life for 10+ years and takes them every other weekend as well as provide significant amount of emotional and physical support. Patient is not nor has had he any children. [place] 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 Unfortunately he is challenged with financial stressors, he needs to move it has not found a place yet. Medications/Allergies - Medications Home Medications: Ambulatory Orders Medication Instructions Recorded Confirmed Albuterol Sulf [Ventolin Hfa 2 puffs INH Q4HR PRN 06/29/17 09/09/20 Inhaler] Citalopram [CeleXA] 30 mg PO DAILY 10/18/17 09/09/20 Fluticasone/Salmeterol [Advair 2 spray TANGELA BID 10/18/17 09/09/20 250-50 Diskus] Aspirin [Adult Aspirin Regimen] 81 mg PO DAILY 10/21/19 09/09/20 Cyanocobalamin (Vitamin B-12) 1,000 mcg PO DAILY 10/21/19 09/09/20 [Vitamin B-12] Ipratropium/Albuterol [Combivent 2 puffs IH BID 10/21/19 09/09/20 Respimat] Ondansetron [Ondansetron Odt] 8 mg PO BID PRN 11/07/19 09/09/20 Mouthwash Compounding Base 227 5 ml ORAL QID MDD 5-6 times 02/12/20 09/09/20 [Mouthwash-Om] LORazepam [Lorazepam] 0.5 mg PO UD PRN #60 tablet 03/25/20 09/09/20 Nystatin 5 ml PO QID PRN 04/01/20 09/09/20 Zolpidem [Ambien] 10 mg PO QPM PRN 04/23/20 09/09/20 amLODIPine [Norvasc] 10 mg PO DAILY 04/29/20 09/09/20 Omeprazole 40 mg PO DAILY #30 cap 07/21/20 09/09/20 Umeclidinium [place] [Incruse 1 inh INH DAILY 08/13/20 09/09/20 Ellipta] oxyCODONE/ACET 5/325 [Percocet 5 1 - 2 each PO Q4HR PRN 08/13/20 09/09/20 mg/325 mg] LORazepam [Ativan] 1 - 2 tab PO DAILY PRN #60 tablet 09/03/20 09/09/20 MDD 1mg LORazepam [Ativan] 1 - 2 tab PO HS PRN #60 tablet MDD 09/03/20 09/09/20 1mg Zolpidem Tartrate [Ambien] 10 mg PO QPM PRN #30 tablet 09/03/20 09/09/20 - Allergies Allergies/Adverse Reactions: Allergies Allergy/AdvReac Type Severity Reaction Status Date / Time nitrous oxide [Nitrous Oxide] AdvReac Hallucinati Verified 09/09/20 09:05 ons tramadol AdvReac Nausea Verified 09/09/20 09:05 Review of Systems - Constitutional Constitutional: reports: Fatigue, Weakness, Weight loss (142 3/01; 128.9 today; very little insight he had lost more weight). denies: Fever, Chills - Eyes Eyes: reports: Vision loss - Ears, Nose & Throat Ears, Nose & Throat: reports: Hearing loss, Dental decay, Dry mouth. denies: Mouth lesions (improved) - Cardiovascular Cardiovascular: reports: Lightheadedness, Decr. exercise tolerance. denies: Edema - Respiratory Respiratory: reports: Cough (no productive), SOB at rest, SOB with exertion - Gastrointestinal Gastrointestinal: reports: Abdominal pain (right upper quadrant; attributes to stent; using 2 percocet at bedtime; marijuana), Constipation (reports worsening constipation;), Early satiety. denies: Nausea, Reflux/heartburn - Musculoskeletal Musculoskeletal: reports: Back pain, Muscle aches, Stiffness, Muscle weakness - Integumentary Integumentary: reports: Dryness, Hair changes (thinning) - Neurological Neurological: reports: General weakness, Numbness, Memory problems. denies: Headache - Psychiatric Psychiatric: reports: Anxiety - Hematologic/Lymphatic Hematologic/Lymph: reports: Anemia (13.4), Recurrent infections (stent; just finishing cipro/flagyl) - All Other Systems All Other Systems: reports: Reviewed and negative Physical Exam - Vital Signs Pulse Rate: 74 Respiratory Rate: 18 Blood Pressure: 102/75 - Physical Exam General Appearance: positive: No acute distress, Alert Eyes Bilateral: positive: Normal inspection, No scleral icterus ENT: positive: No signs of dehydration Neck: positive: Trachea midline Cardiovascular: positive: Regular rate & rhythm Respiratory: positive: Diminished throughout. negative: Wheezes Abdomen: positive: Soft, Tenderness (with palpation RUQ) Skin: positive: Pallor, Dryness Extremities: positive: No pedal edema Neurologic/Psychiatric: positive: Oriented x3, Flat affect Palliative Care - POLST Patient has POLST: No Pain: Pain unchanged, Location (RUQ mostly at night; relieved with 2 percocet and marijuana) Tiredness/Fatigue: Mild (1-3) Drowsiness/Sedation: Mild (1-3) Nausea: None Anorexia: None Dyspnea: Mild (1-3) Depression: None Anxiety: None Feelings of wellbeing/Perceived Quality of Life: Good, Acceptable, No change Sleep: Variable sleep pattern Constipation: Yes, Opoid induced, Unmanaged Performance Status: Patient does not perceive any increase muscle weakness, though has noted muscle mass loss with upper and lower extremity wasting. He is quite sedentary overall, but is able to manage his ADLs. - Palliative Care Discussion: Patient does appear a little bit more anxious with revelation of his weight loss, he denies any worries or concerns. When delved a little deeper, we did discuss about his current living situation, he does identify either his nephew or possibly Shantelle would be able to assist him short-term if he was unable to find a place to live, at this point in time need extended his lease some. He continues to be very much involved in the care of Bobby, this does bring him lissa and comfort, and gives him something to live for. Patient remains quite hopeful, though does continue to present prognostically with weight loss, progressive disease, and continued issues regarding complications from his stent. Results - Lab Results Lab results reviewed: Yes Impression and Recommendations - Palliative Care Impression: This is a 69-year-old gentleman with metastatic colon cancer to the liver, nodes, and lungs, continues to receive ongoing maintenance therapy. He does present with complications related to his stent, has mild to moderate symptom burden, and continues with complex social situation. Palliative care meeting with patient to address symptom management and anticipatory guidance. Recommendations/Counseling Done: 1. Weight loss. Patient has lost another 12 pounds over the last 6 weeks, does not attribute to any high symptom burden, though when dug little deeper, does appear to be early satiety and anorexia. Patient reports has been using Ensure/boost twice a day, does get it from the [employer] and his friend Shantelle buys him some. Encouraged him to increase it 3 times a day, particularly given he skips breakfast. Patient presents with symptoms of early satiety, discussed small frequent meals, as well as adding evening snack. Patient has met with dietitian in the past, will make another referral. Suspect also has much to do with stent needing to be replaced, and intermittent constipation. 2. Constipation. Patient reports constipation, does not have any meds, will trial an order but they are OTC. Instructions written out both for senna 8.6 mg as well as MiraLAX 17 g daily. Instructed goal is for regular soft BM daily. Instructed to start with senna 8.6 mg daily and increase to BID as needed and/or Miralax 17 gm daily. Counseling provided for titrating medications, as well as instructions written out. 3. Anxiety. This is multifactorial, did offer social work referral for resources, he does not feel this would be of help at this point in time. Patient most likely would qualify for subsidized housing, does not want to leave the area. Encouraged to reach out to friends/family regarding backup plan for housing so as to encourage support as well as set up possible expectations. 4. Metastatic colon cancer. Patient still has pending [facility], encouraged if patient shows more signs or symptoms are worsening of pain in right upper quadrant, to reach out earlier or if urgent signs or symptoms of infection need to see emergently. Counseling provided regarding information and instruction for upcoming telehealth for important symptoms to share. Patient has been quite frustrated with this poor handoff from you have dub. 5. Advanced care planning patient's goals remain to be committed to treatment, continues to hope for the best, wants to "be around" as long as possible, is committed to his relationship with Bobby. We will continue to explore goals of care in the context of patient's ongoing decline. 60 minutes with review of records, labs, [id number] time, counseling and anticipatory guidance regarding symptom management, as well as coordination of care with oncology team.
== END 2020-09-23 10:13 | disposition home or self-care (01) ==
LOC: PC 10:12
PROVIDERS: ATTEND Nurse Practitioner Adult Health
DX: Z51.5 Encounter for palliative care (principal); R63.4 Abnormal weight loss; K59.00 Constipation, unspecified; F41.9 Anxiety disorder, unspecified; C18.7 Malignant neoplasm of sigmoid colon; C78.7 Secondary malignant neoplasm of liver and intrahepatic bile duct; C78.02 Secondary malignant neoplasm of left lung; C78.01 Secondary malignant neoplasm of right lung; C77.9 Secondary and unspecified malignant neoplasm of lymph node, unspecified
CPT/HCPCS: 99215

== ENCOUNTER 2020-10-06 19:39 | Emergency (ER) | payer MEDICARE, MEDICAID ==
--- OUTSIDE RECORDS SUMMARY | 2020-10-06 19:43 | EXTERNAL MEDICAL SUMMARY RPT | Continuity of Care Document ---
:1950 Demographics Phone Unavailable Preferred Language Unknown Marital Status Unknown Protestant Affiliation Unknown Race Unknown Ethnic Group Unknown Author Organization [facility] Address [address] [place] [address] Phone Social History date description facility [phone]
--- OUTSIDE RECORDS SUMMARY | 2020-10-06 19:57 | EXTERNAL MEDICAL SUMMARY RPT | Continuity of Care Document ---
:1950 Demographics Phone Unavailable Preferred Language Unknown Marital Status Unknown Amish Affiliation Unknown Race Unknown Ethnic Group Unknown Author Organization [facility] Address [address] [place] [address] Phone Social History date description facility [phone]
[2020-10-06 20:13] LABS: BASOPHILS % (AUTO) 0.4 %; EOSINOPHILS # (AUTO) 0.3 10^3/uL (0.0-0.7); EOSINOPHILS % (AUTO) 3.9 %; HCT - HEMATOCRIT 38.9 % (42.0-52.0); HGB - HEMOGLOBIN 12.4 g/dL (14.0-18.0); LYMPHOCYTES # (AUTO) 1.4 10^3/uL (1.5-3.5); MEAN CORPUSCULAR HEMOGLOBIN 33.1 pg (27.0-31.0); MEAN CORPUSCULAR HGB CONC 31.9 g/dL (32.0-36.0); MEAN CORPUSCULAR VOLUME 103.7 fL (80.0-94.0); MEAN PLATELET VOLUME 9.9 fL (7.4-11.4); MONOCYTES # (AUTO) 1.2 10^3/uL (0.0-1.0); MONOCYTES % (AUTO) 15.3 %; NEUTROPHILS # (AUTO) 4.6 10^3/uL (1.5-6.6); NEUTROPHILS % (AUTO) 61.1 %; PLT - PLATELET COUNT 167 10^3/uL (130-450); RED BLOOD COUNT 3.75 10^6/uL (4.70-6.10); RED CELL DISTRIBUTION WIDTH 15.8 % (12.0-15.0); WHITE BLOOD COUNT 7.5 x10^3/uL (4.8-10.8)
[2020-10-06 20:26] LABS: ALBUMIN 3.6 g/dL (3.2-5.5); ALBUMIN/GLOBULIN RATIO 1.1 (1.0-2.2); BILIRUBIN,TOTAL 0.8 mg/dL (0.2-1.0); CALCIUM 9.5 mg/dL (8.5-10.3); POTASSIUM 4.4 mmol/L (3.5-5.0)
--- NOTE | 2020-10-06 20:27 | XRAY Report ---
PROCEDURE: Chest 1 View X-Ray INDICATIONS: Chest pain TECHNIQUE: One view of the chest was acquired. COMPARISON: 12/25/2019 chest radiograph. FINDINGS: Surgical changes and devices: Left chest port with the tip projecting in the mid SVC.. No pleural effusion or pneumothorax. Ill-defined innumerable pulmonary nodular opacities presumably r elated to metastatic disease Mediastinum: Mediastinal contours appear normal. Heart size is normal. Bones and chest wall: No suspicious bony lesions. Overlying soft tissues appear unremarkable. IMPRESSION: Diffuse bilateral ill-defined pulmonary nodules in keeping with progressive metastatic disease as bef ore. No acute consolidation. Reviewed by: Lamont Chirinos MD on 10/06/2020 8:25 PM PDT Approved by: Lamont Chirinos MD on 10/06/2020 8:25 PM PDT Station ID: [id number]
[2020-10-06] MEDS ORDERED: HYDROmorphone 1 MG/ML CARPUJECT IVP STA ×2 (20:52→23:38)
--- NOTE | 2020-10-06 21:20 | ED Physician Documentation ---
PD HPI ABD PAIN - Stated complaint Stated Complaint: CP/STENT - Chief complaint Chief Complaint: Cardiac - History obtained from History obtained from: Patient - Additional information Additional information: 69-year-old gentleman with history of metastatic colon cancer undergoing chemotherapy presents with 2 weeks of epigastric pain, nonradiating and poor appetite. Symptoms are similar to prior episodes of biliary stent malfunction. Denies fevers, chills, jaundice, or changes in bowel movements save an episode of constipation which he fixed with laxatives. But no em or pale stools. Review of Systems Ten Systems: 10 systems reviewed and negative Constitutional: reports: Fatigue. denies: Fever, Chills GI: denies: Nausea, Vomiting : denies: Dysuria, Frequency PD PAST MEDICAL HISTORY - Past Medical History Past Medical History: Yes Cardiovascular: Hypertension Respiratory: COPD, Shortness of breath Endocrine/Autoimmune: None GI: Ulcers, Other : Kidney stones HEENT: Chronic sinusitis Psych: Depression, Anxiety, Panic attacks Musculoskeletal: Osteoarthritis, Fatigue, Other Derm: None Other Past Medical History: Colon CA - Past Surgical History Past Surgical History: Yes General: Bowel surgery, Liver surgery, Colonoscopy, Other Ortho: Other Cardiovascular: Coronary stent, Other HEENT: Tonsil/Adenoidectomy - Present Medications Home Medications: Ambulatory Orders Medication Instructions Recorded Confirmed Albuterol Sulf [Ventolin Hfa 2 puffs INH Q4HR PRN 06/29/17 09/09/20 Inhaler] Citalopram [CeleXA] 30 mg PO DAILY 10/18/17 09/09/20 Fluticasone/Salmeterol [Advair 2 spray TANGELA BID 10/18/17 09/09/20 250-50 Diskus] Aspirin [Adult Aspirin Regimen] 81 mg PO DAILY 10/21/19 09/09/20 Cyanocobalamin (Vitamin B-12) 1,000 mcg PO DAILY 10/21/19 09/09/20 [Vitamin B-12] Ipratropium/Albuterol [Combivent 2 puffs IH BID 10/21/19 09/09/20 Respimat] Ondansetron [Ondansetron Odt] 8 mg PO BID PRN 11/07/19 09/09/20 Mouthwash Compounding Base 227 5 ml ORAL QID MDD 5-6 times 02/12/20 09/09/20 [Mouthwash-Om] LORazepam [Lorazepam] 0.5 mg PO UD PRN #60 tablet 03/25/20 09/09/20 Nystatin 5 ml PO QID PRN 04/01/20 09/09/20 Zolpidem [Ambien] 10 mg PO QPM PRN 04/23/20 09/09/20 amLODIPine [Norvasc] 10 mg PO DAILY 04/29/20 09/09/20 Omeprazole 40 mg PO DAILY #30 cap 07/21/20 09/09/20 Umeclidinium [place] [Incruse 1 inh INH DAILY 08/13/20 09/09/20 Ellipta] oxyCODONE/ACET 5/325 [Percocet 5 1 - 2 each PO Q4HR PRN 08/13/20 09/09/20 mg/325 mg] LORazepam [Ativan] 1 - 2 tab PO DAILY PRN #60 tablet 09/03/20 09/09/20 MDD 1mg LORazepam [Ativan] 1 - 2 tab PO HS PRN #60 tablet MDD 09/03/20 09/09/20 1mg Zolpidem Tartrate [Ambien] 10 mg PO QPM PRN #30 tablet 09/03/20 09/09/20 - Allergies Allergies/Adverse Reactions: Allergies Allergy/AdvReac Type Severity Reaction Status Date / Time nitrous oxide [Nitrous Oxide] AdvReac Hallucinati Verified 10/06/20 19:54 ons tramadol AdvReac Nausea Verified 10/06/20 19:54 - Social History Does the pt smoke?: No Smoking Status: Never smoker Does the pt drink ETOH?: Yes Does the pt have substance abuse?: Yes - Immunizations Immunizations are current?: No Immunizations: TDAP >10years/unknown - POLST Patient has POLST: No POLST Status: Full Code PD ED PE NORMAL - Vitals Vital signs reviewed: Yes - General General: Alert and oriented X 3, No acute distress - HEENT HEENT: PERRL, EOMI - Neck Neck: Supple, no meningeal sign, No bony TTP - Cardiac Cardiac: RRR, No murmur - Respiratory Respiratory: No respiratory distress, Clear bilaterally - Abdomen Abdomen: Other (Mild epigastric and right upper quadrant tenderness with extensive surgical scars. No surgical signs.) - Back Back: No CVA TTP, No spinal TTP - Derm Derm: Normal color, Warm and dry - Extremities Extremities: No edema, No calf tenderness / cord - Neuro Neuro: Alert and oriented X 3, Normal speech Results - Vitals Vitals: Vital Signs - 24 hr 10/06/20 10/06/20 10/06/20 19:40 19:55 20:05 Temperature 36.5 C Heart Rate 71 74 Respiratory 20 21 Rate Blood Pressure 107/70 133/88 H Blood Pressure 105/75 [Left] Blood Pressure 133/88 H [Right] O2 Saturation 94 94 10/06/20 10/06/20 10/06/20 20:40 21:25 22:25 Temperature 37.0 C 36.4 C L Heart Rate 70 66 67 Respiratory 17 15 14 Rate Blood Pressure 105/75 111/77 116/77 Blood Pressure [Left] Blood Pressure [Right] O2 Saturation 96 94 94 10/06/20 10/06/20 10/07/20 23:15 23:41 00:28 Temperature 36.4 C L 36.5 C Heart Rate 66 64 68 Respiratory 17 12 17 Rate Blood Pressure 108/82 H 107/72 110/77 Blood Pressure [Left] Blood Pressure [Right] O2 Saturation 94 96 97 Oxygen O2 Source Room air - EKG (time done) 1948 Rate: Rate (enter#) (70) Rhythm: NSR (w pvc) [place]: Normal Intervals: Normal [place] QRS: Normal Ischemia: Non specific changes - Labs Labs: Laboratory Tests 10/06/20 10/06/20 10/06/20 20:07 20:07 20:07 WBC 7.5 RBC 3.75 L Hgb 12.4 L Hct 38.9 L MCV 103.7 H MCH 33.1 H MCHC 31.9 L RDW 15.8 H Plt Count 167 MPV 9.9 Neut # (Auto) 4.6 Lymph # (Auto) 1.4 L [place] # (Auto) 1.2 H Eos # (Auto) 0.3 Baso # (Auto) 0.0 Absolute Nucleated RBC 0.00 Nucleated RBC % 0.0 Sodium 135 Potassium 4.4 Chloride 100 L Carbon Dioxide 26 Anion Gap 9.0 BUN 23 H Creatinine 1.0 Estimated GFR (MDRD) 75 L Glucose 102 H Calcium 9.5 Total Bilirubin 0.8 AST 32 ALT 29 Alkaline Phosphatase 130 H Troponin I High Sens 6.7 Total Protein 7.0 Albumin 3.6 Globulin 3.4 Albumin/Globulin Ratio 1.1 Lipase 17 L PD MEDICAL DECISION MAKING - ED course ED course: 69yo with metastatic CA and hx biliary obstruction with stent insitu presents with epigastric pain reminiscent of obstruction of same. Biochemically no e/o obstruction. Care to Dr Urena at shift change pending CT imaging. Departure - Departure Disposition: 01 Home, Self Care Clinical Impression: Abdominal pain Qualifiers: Abdominal location: epigastric Qualified Code(s): R10.13 - Epigastric pain Colon cancer Qualifiers: Colon location: unspecified part of colon Qualified Code(s): C18.9 - Malignant neoplasm of colon, unspecified Condition: Stable Instructions: ED Abdominal Pain Unkn Cause Male Follow-Up: Frankie Parker MD [Provider Admit Priv/Credential] - Comments: Today there does not appear to be any obstruction of your biliary stent. There does appear to be food processing through the entire digestive system. My recommendation is to reduce your oral intake of food and continue to drink fluids over the next 2 to 3 days. When you begin to feel that your intestines are empty and you are hungry begin to eat again. Follow-up with your oncologist as planned. Discharge Date/Time: 10/07/20 00:30
[2020-10-06] MEDS ORDERED: IOPAMIDOL-300 100 ML VIAL ONE (21:30)
[2020-10-06] MEDS ORDERED: IOPAMIDOL-300 100 ML VIAL IVP ONE (22:05)
[2020-10-06] MEDS ORDERED: DEXAMETHASONE 10 MG/ML VIAL IVP STA (23:39)
--- NOTE | 2020-10-06 23:43 | ED Physician Documentation ---
ED Addendum - Addendum Addendum: 10/06/20 23:39 69-year-old male who's care is turned over to me by Dr. Grimaldo at shift change, has had colon cancer for 10 years has developed symptoms the past 2 weeks of abdominal discomfort and concern for possible stent obstruction. Biochemically his stent does not appear obstructed and does not appear obstructed on imaging. He does appear to have food throughout the small intestine stool in the large intestine and a full stomach. I discussed with the patient it looks like his food is digesting slowly and I have recommended that he fast for 2 to 3 days with oral fluids and small amounts to eat. He is administered a second dose of Dilaudid and 10 mg of dexamethasone. I have shared with him the appearance of progression of metastatic disease.
[2020-10-07 00:36] VITALS: BP 110/77
--- NOTE | 2020-10-07 09:59 | CT Report ---
PROCEDURE: Abdomen/Pelvis W INDICATIONS: ABd pain, ? biliary stent issue CONTRAST: IV CONTRAST: Isovue 300 ml: 100 PO CONTRAST: *NO PO CONTRAST TECHNIQUE: After the administration of contrast, 5 mm thick sections acquired from the diaphragms to the sym physis. 5 mm thick coronal and sagittal reformats were acquired. For radiation dose reduction, the following was used: automated exposure control, adjustment of mA and/or kV according to patient size . COMPARISON: Prior CT abdomen/pelvis 07/21/2020, 06/03/2020 and 03/11/2020. FINDINGS: Image quality: Excellent. ABDOMEN: Lung bases: Lung bases are abnormal, with multiple small nodules as presumed metastatic lesions, whi ch have not significantly changed considering slight differences in scan angulation and level during image acquisition with reference to the comparison most recent study from 07/21/2020. Heart size is no rmal. A 1.5 cm retrocrural abnormal lymph node is again seen, on the right. This is unchanged from t he prior study. Solid organs: Liver and spleen are normal in size and enhancement except for the presence of several scattered small soluble solid-appearing hepatic mass lesions ranging in size from several millimeter s to 1.5 cm.. Gallbladder is surgically absent Biliary system is non dilated, with a biliary stent in position extending from the inferior common bile duct cephalad, as was previously the case. Pancr eas enhances normally. No adrenal nodules. Kidneys demonstrate normal size and enhancement, without hydronephrosis. Peritoneum and bowel: Bowel loops demonstrate normal wall thickness and caliber. No free fluid or a ir. Nodes and vessels: No retroperitoneal or mesenteric adenopathy by size criteria. Aorta and inferior vena cava are normal in size. Miscellaneous: No ventral hernias. PELVIS: Genitourinary: Bladder wall thickness is normal. Miscellaneous: No inguinal hernias or adenopathy. An enteric staple line is seen at the posterior s igmoid colon within the low pelvis. Bones: No suspicious bony lesions. No vertebral body compression fractures. IMPRESSION: Metastatic disease within the lung bases and also at the retrocrural portion of the ches t/abdomen junction is stable over time. Hepatic metastatic disease is more difficult to visualize but remains present to the same degree as present in July of this year. Overall a definite source of new pain is not identified. The bile duct positioning is noted to have its inferior margin at the inferior aspect of the common b ile duct, but there is no intrahepatic biliary distention. The inferior tip is not seen to extend int o the duodenal lumen. Prior surgical resection of the gallbladder. Partial prior resection of the sigmoid colon posteriorly . Reviewed by: Lei Emmanuel MD on 10/07/2020 9:58 AM PDT Approved by: Lei Emmanuel MD on 10/07/2020 9:58 AM PDT Station ID: [id number]
== END 2020-10-07 00:30 | disposition home or self-care (01) ==
LOC: ED 19:39
DX: R10.13 Epigastric pain (principal); C18.9 Malignant neoplasm of colon, unspecified; I10 Essential (primary) hypertension
CPT/HCPCS: 36415; 71045; 74177; 80053; 83690; 84484; 85025; 93005; 96374; 96375; 96376; 99284; J1170; Q9967

== ENCOUNTER 2020-11-05 11:30 | Outpatient (CLI) | payer MEDICARE, MEDICAID ==
--- NOTE | 2020-11-05 17:02 | CONSULTATION NOTE ---
Palliative Care Follow Up - Referral Referring Provider: Dr. 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 He continues to have significant weight loss, today is 128. Patient attributes some of this to his mucositis, but also anorexic, as well as appears not to be tracking as well. Patient with high anxiety, though does try to cover this, has still not found an new location to live, though is starting a paid position at [employer], and continues to be actively involved in supporting his younger friend Bobby. Patient continues with right upper quadrant pain, reports his in the background during the day, more uncomfortable at night. It is tender to palpation, he did have a follow-up with [facility], with the hope to get the stent replaced but at this point the notes reflect there is not s/s obstruction and continue to monitory. Patient continues on his maintenance 5 FU/bevacizmab since 06/02, does report intermittent nausea and constipation, now concerned about abdominal hernia, on exam this is nontender and easily reduced. Past Medical History: COPD, hypertension, original diagnosis stage II sigmoid colon cancer 2010, stage IV colon cancer to the lung 09/2014, with left lower lobe wedge resection of mets 02/2015, liver resection 11/2018 Social History - Living Situation Living arrangement: At home Living Situation: Alone Support System: Patient has long-term support from his friend Shantelle, they do not live together. Shantelle's sisters grandson Bobby is now 15, he has been involved his life for 10+ years and takes them every other weekend as well as provides a significant mount of emotional and physical support. Patient is not nor has had any children, [place] 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 He continues to be challenged with financial stressors and has not found a place to move yet Medications/Allergies - Medications Home Medications: Ambulatory Orders Medication Instructions Recorded Confirmed Albuterol Sulf [Ventolin Hfa 2 puffs INH Q4HR PRN 06/29/17 10/22/20 Inhaler] Citalopram [CeleXA] 30 mg PO DAILY 10/18/17 10/22/20 Fluticasone/Salmeterol [Advair 2 spray TANGELA BID 10/18/17 10/22/20 250-50 Diskus] Aspirin [Adult Aspirin Regimen] 81 mg PO DAILY 10/21/19 10/22/20 Cyanocobalamin (Vitamin B-12) 1,000 mcg PO DAILY 10/21/19 10/22/20 [Vitamin B-12] Ipratropium/Albuterol [Combivent 2 puffs IH BID 10/21/19 10/22/20 Respimat] Ondansetron [Ondansetron Odt] 8 mg PO BID PRN 11/07/19 10/22/20 Mouthwash Compounding Base 227 5 ml ORAL QID MDD 5-6 times 02/12/20 10/22/20 [Mouthwash-Om] Nystatin 5 ml PO QID PRN 04/01/20 10/22/20 amLODIPine [Norvasc] 10 mg PO DAILY 04/29/20 10/22/20 Omeprazole 40 mg PO DAILY #30 cap 07/21/20 10/22/20 Umeclidinium [place] [Incruse 1 inh INH DAILY 08/13/20 10/22/20 Ellipta] oxyCODONE/ACET 5/325 [Percocet 5 1 - 2 each PO Q4HR PRN 08/13/20 10/22/20 mg/325 mg] LORazepam [Ativan] 1 - 2 tab PO HS PRN #60 tablet MDD 10/22/20 1mg Zolpidem Tartrate [Ambien] 10 mg PO QPM PRN #30 tablet 10/22/20 - Allergies Allergies/Adverse Reactions: Allergies Allergy/AdvReac Type Severity Reaction Status Date / Time nitrous oxide [Nitrous Oxide] AdvReac Hallucinati Verified 10/22/20 11:01 ons tramadol AdvReac Nausea Verified 10/22/20 11:01 Review of Systems - Constitutional Constitutional: reports: Fatigue (persitent/worsening), Weakness, Weight loss (128; appears thin). denies: Fever, Chills - Eyes Eyes: reports: Vision loss - Ears, Nose & Throat Ears, Nose & Throat: reports: Hearing loss, Mouth lesions (improved), Dental decay, Dry mouth - Cardiovascular Cardiovascular: reports: Lightheadedness, Decr. exercise tolerance. denies: Edema - Respiratory Respiratory: reports: Cough (no productive), SOB at rest, SOB with exertion. denies: Hemoptysis - Gastrointestinal Gastrointestinal: reports: Abdominal pain (right upper quadrant; attributes to stent; using 2 percocet at bedtime; marijuana), Constipation (reports worsening constipation;), Early satiety. denies: Nausea, Reflux/heartburn - Musculoskeletal Musculoskeletal: reports: Back pain, Muscle aches, Stiffness, Muscle weakness - Integumentary Integumentary: reports: Dryness, Hair changes (thinning) - Neurological Neurological: reports: General weakness, Numbness, Memory problems. denies: Headache - Psychiatric Psychiatric: reports: Anxiety - Hematologic/Lymphatic Hematologic/Lymph: reports: Anemia (12.9), Recurrent infections (stent;) - All Other Systems All Other Systems: reports: Reviewed and negative Physical Exam - Vital Signs Temperature: 97.2 C Pulse Rate: 66 Respiratory Rate: 18 Blood Pressure: 99/66 - Physical Exam General Appearance: positive: No acute distress, Alert Eyes Bilateral: positive: Normal inspection, No scleral icterus ENT: positive: No signs of dehydration, Other (poor oral hygiene/decay; 2 mucosal lesions) Neck: positive: Trachea midline Cardiovascular: positive: Regular rate & rhythm Respiratory: positive: Diminished throughout. negative: Wheezes Abdomen: positive: Soft, Tenderness (midline distal hernia tender; easily reduces). negative: Mass Skin: positive: Pallor, Dryness Extremities: positive: No pedal edema Neurologic/Psychiatric: positive: Oriented x3, Flat affect Palliative Care - POLST Patient has POLST: No Pain: Pain unchanged, Location (RUQ; "discomfort" during the day; 5/10 at night; uses oxycodone) Tiredness/Fatigue: Moderate (4-6) Drowsiness/Sedation: Mild (1-3) Nausea: None Anorexia: Moderate (4-6), Weight loss Dyspnea: Moderate (4-6) (worse with activity) Depression: Mild (1-3) Anxiety: Moderate (4-6) Feelings of wellbeing/Perceived Quality of Life: Good, Acceptable Sleep: Variable sleep pattern Constipation: Yes, Intermittent constipation Performance Status: Patient does report feeling weaker, less able to tolerate activity, is managing his ADLs, but does have to take frequent rest periods. He is able to work on a limited basis, but does get quite exhausted.He is feeling much weaker with his weight loss, and has had significant amount of muscle wasting. - Palliative Care Discussion: Patient continues to be quite passive in his treatment plan, he does have significant anxiety, but often covers this with joking and redirection/distraction. He continues to focus on receiving treatment, he does understand the seriousness of his illness at some level, but is going for quantity. His goal is to live as long as possible to be able to support Bobby. He has done a DPOA, but is quite resistant to any other advanced care planning documents Results - Lab Results Lab results reviewed: Yes Impression and Recommendations - Palliative Care Impression: This is a 69-year-old gentleman with metastatic colon cancer to liver, nodes, lungs, continues to receive ongoing maintenance therapy. At this point in time there is no plan for further follow-up on his stent per oncology, continue to monitor. Patient continues with weight loss which is of concern. He continues with complex social situation. Palliative care meeting with patient to continue provide support and anticipatory guidance Recommendations/Counseling Done: 1. Weight loss. Patient continues to lose weight, has early satiety and anorexia. He is not interested in any medications to improve his appetite. Patient reports he has been using Ensure/boost twice a day, has been instructed to increase to 3-4 times a day. Counseling provided regarding ways to better incorporate and track intake, patient does have some cognitive issues. As far as being able to remember and gets easily distracted. Patient is met with dietitian in the past, reports he has not met recently, will follow-up if referral completed. 2. Mucositis. This appears to be improving, patient with multiple medications and instructions regarding management. Patient instructions written out for regular oral care, does have severe dental decay and poor oral hygiene. Instructed to use normal saline rinse after inhalers and after meals, he had been using biotin instructed to use that only 1-2 times a day for dry mouth. We reviewed Magic mouthwash was for the pain to help with eating and use 30 minutes before eating, as well as nystatin for yeast while patient has recurrence of candidiasis, needs to complete on a regular basis. 3.Anxiety. Patient continues with low-grade and intermittent anxiety, this is multifactorial. He is trying to come up with a housing plan, is complicated by the fact they need to accommodate his visitations with Bobby. At this point in time he is still able to stay in his current living situation. 4. Metastatic colon cancer. Patient continues on maintenance therapy, disc ussed need to focus on nutrition to be able to support him continuing and tolerating current treatment regimen, patient does verbalize understanding. Patient's goal is to continue treatment. 5. Hypertension. Patient currently reports with dehydration. Patient "forgets" to drink, patient will be receiving fluids with his treatment today, reviewed need to continue with adding fluids but calorie laden ones to help with weight loss as well. 6. Advanced care planning. Patient does have DPOA in place, has little insight into the seriousness of his illness and implications of his ongoing decline. Patient's scans at this point in time show no apparent obstruction for his stent, and metastatic disease stable at this time, though noted hepatic metastatic disease more difficult to visualize. Patient goals remain to focus on quantity of life, with hope to live as long as possible to be able to support his friend Bobby 60 minutes With review of oncology notes, scans, labs, [id number] with patient with physical exam, counseling for pain and symptom management, and anticipatory guidance, coordination with oncology team
== END 2020-11-05 11:31 | disposition home or self-care (01) ==
LOC: PC 11:30
PROVIDERS: ATTEND Nurse Practitioner Adult Health
DX: Z51.5 Encounter for palliative care (principal); R63.4 Abnormal weight loss; K12.30 Oral mucositis (ulcerative), unspecified; K02.9 Dental caries, unspecified; F41.9 Anxiety disorder, unspecified; C18.9 Malignant neoplasm of colon, unspecified; C78.7 Secondary malignant neoplasm of liver and intrahepatic bile duct; C78.00 Secondary malignant neoplasm of unspecified lung; C77.9 Secondary and unspecified malignant neoplasm of lymph node, unspecified; I10 Essential (primary) hypertension; J44.9 Chronic obstructive pulmonary disease, unspecified; Z79.899 Other long term (current) drug therapy
CPT/HCPCS: 99215

== ENCOUNTER 2020-12-06 19:20 | Inpatient (IN) | payer MEDICARE, MEDICAID ==
[2020-12-06 20:32] LABS: BASOPHILS % (AUTO) 0.1 %; HCT - HEMATOCRIT 38.5 % (42.0-52.0); LYMPHOCYTES # (AUTO) 0.2 10^3/uL (1.5-3.5); LYMPHOCYTES % (AUTO) 2.5 %; MEAN CORPUSCULAR HEMOGLOBIN 34.5 pg (27.0-31.0); MEAN CORPUSCULAR HGB CONC 33.8 g/dL (32.0-36.0); MEAN CORPUSCULAR VOLUME 102.1 fL (80.0-94.0); MEAN PLATELET VOLUME 10.3 fL (7.4-11.4); MONOCYTES # (AUTO) 0.3 10^3/uL (0.0-1.0); MONOCYTES % (AUTO) 2.8 %; NEUTROPHILS # (AUTO) 8.4 10^3/uL (1.5-6.6); NEUTROPHILS % (AUTO) 94.3 %; PLT - PLATELET COUNT 249 10^3/uL (130-450); RED BLOOD COUNT 3.77 10^6/uL (4.70-6.10); RED CELL DISTRIBUTION WIDTH 19.9 % (12.0-15.0); WHITE BLOOD COUNT 8.9 x10^3/uL (4.8-10.8)
[2020-12-06 20:44] LABS: ALBUMIN 3.8 g/dL (3.2-5.5); ALBUMIN/GLOBULIN RATIO 1.2 (1.0-2.2); CALCIUM 9.4 mg/dL (8.5-10.3); CREATININE 0.7 mg/dL (0.6-1.2); POTASSIUM 4.3 mmol/L (3.5-5.0); TOTAL PROTEIN 6.9 g/dL (6.7-8.2)
--- NOTE | 2020-12-06 20:50 | ED Physician Documentation ---
PD HPI ABD PAIN - Stated complaint Stated Complaint: ABD PX - Chief complaint Chief Complaint: Abd Pain - History obtained from History obtained from: Patient - History of Present Illness Timing - onset: How many hours ago (about 8-9 hours ago, abrupt onset abd distension associated with left pain and nausea. vomiting), Today Timing - duration: Hours Timing - details: Abrupt onset, Still present Quality: Cramping, Aching, Fullness/distended, Pain Location: LUQ Radiation: Lower back. No: Chest, Left flank Improved by: Vomiting. No: Eating Worsened by: Eating. No: Breathing, Palpation Associated symptoms: Nausea, Vomiting (several times), Loss of appetite. No: Fever, Diarrhea, Constipation, Melena, Chest pain, Weight loss Similar symptoms before: Has not had sx before Recently seen: Clinic ([facility] [place] [facility] for chemo.) Review of Systems Constitutional: denies: Fever, Chills Nose: denies: Rhinorrhea / runny nose, Congestion Throat: denies: Sore throat Respiratory: denies: Dyspnea, Cough GI: reports: Abdominal Pain, Nausea, Vomiting. denies: Constipation, Diarrhea : denies: Dysuria, Frequency Musculoskeletal: denies: Neck pain, Back pain Neurologic: reports: Generalized weakness. denies: Focal weakness, Numbness, Near syncope PD PAST MEDICAL HISTORY - Past Medical History Past Medical History: Yes Cardiovascular: Hypertension Respiratory: COPD, Shortness of breath Endocrine/Autoimmune: None GI: Ulcers, Other : Kidney stones HEENT: Chronic sinusitis Psych: Depression, Anxiety, Panic attacks Musculoskeletal: Osteoarthritis, Fatigue, Other Derm: None - Past Surgical History Past Surgical History: Yes General: Bowel surgery, Liver surgery, Colonoscopy, Other Ortho: Other Cardiovascular: Coronary stent, Other HEENT: Tonsil/Adenoidectomy - Present Medications Home Medications: Ambulatory Orders Medication Instructions Recorded Confirmed Albuterol Sulf [Ventolin Hfa 2 puffs INH Q4HR PRN 06/29/17 10/22/20 Inhaler] Citalopram [CeleXA] 30 mg PO DAILY 10/18/17 10/22/20 Fluticasone/Salmeterol [Advair 2 spray TANGELA BID 10/18/17 10/22/20 250-50 Diskus] Aspirin [Adult Aspirin Regimen] 81 mg PO DAILY 10/21/19 10/22/20 Cyanocobalamin (Vitamin B-12) 1,000 mcg PO DAILY 10/21/19 10/22/20 [Vitamin B-12] Ipratropium/Albuterol [Combivent 2 puffs IH BID 10/21/19 10/22/20 Respimat] Ondansetron [Ondansetron Odt] 8 mg PO BID PRN 11/07/19 10/22/20 Mouthwash Compounding Base 227 5 ml ORAL QID MDD 5-6 times 02/12/20 10/22/20 [Mouthwash-Om] Nystatin 5 ml PO QID PRN 04/01/20 10/22/20 amLODIPine [Norvasc] 10 mg PO DAILY 04/29/20 10/22/20 Umeclidinium [place] [Incruse 1 inh INH DAILY 08/13/20 10/22/20 Ellipta] oxyCODONE/ACET 5/325 [Percocet 5 1 - 2 each PO Q4HR PRN 08/13/20 10/22/20 mg/325 mg] LORazepam [Ativan] 1 - 2 tab PO HS PRN #60 tablet MDD 10/22/20 1mg Zolpidem Tartrate [Ambien] 10 mg PO QPM PRN #30 tablet 10/22/20 Metoclopramide [Reglan] 10 mg PO Q6H PRN 11/07/20 11/07/20 Prochlorperazine Maleate 10 mg PO Q6HR PRN #30 tab 11/18/20 [Compazine] Omeprazole 40 mg PO DAILY #90 cap 12/03/20 dexAMETHasone [Decadron] 2 mg PO DAILY #30 tablet 12/03/20 - Allergies Allergies/Adverse Reactions: Allergies Allergy/AdvReac Type Severity Reaction Status Date / Time nitrous oxide [Nitrous Oxide] AdvReac Hallucinati Verified 12/06/20 19:37 ons tramadol AdvReac Nausea Verified 12/06/20 19:37 - Social History Does the pt smoke?: No Smoking Status: Never smoker Does the pt drink ETOH?: Yes Does the pt have substance abuse?: Yes - Immunizations Immunizations are current?: No Immunizations: TDAP >10years/unknown - POLST Patient has POLST: No POLST Status: Full Code PD ED PE NORMAL - Vitals Vital signs reviewed: Yes - General General: Alert and oriented X 3. No: Well developed/nourished (frail appearing) - HEENT HEENT: PERRL (nonicteric), Pharynx benign - Neck Neck: Supple, no meningeal sign, No adenopathy - Cardiac Cardiac: RRR, No murmur - Respiratory Respiratory: No respiratory distress, Clear bilaterally - Abdomen Abdomen: Other (distended localized left abd with firmness and tender. ). No: Normal bowel sounds (increased) - Male Male : Deferred - Rectal Rectal: Deferred - Back Back: No CVA TTP - Derm Derm: Normal color Results - Vitals Vitals: Vital Signs - 24 hr 12/06/20 12/06/20 19:37 21:15 Temperature 36.7 C Heart Rate 87 71 Respiratory 16 14 Rate Blood Pressure 130/86 H 140/91 H O2 Saturation 95 98 Oxygen O2 Source Room air - Labs Labs: Laboratory Tests 12/06/20 12/06/20 12/06/20 20:17 20:17 22:46 WBC 8.9 RBC 3.77 L Hgb 13.0 L Hct 38.5 L MCV 102.1 H MCH 34.5 H MCHC 33.8 RDW 19.9 H Plt Count 249 MPV 10.3 Neut # (Auto) 8.4 H Lymph # (Auto) 0.2 L Davis # (Auto) 0.3 Eos # (Auto) 0.0 Baso # (Auto) 0.0 Absolute Nucleated RBC 0.00 Nucleated RBC % 0.0 Sodium 133 L Potassium 4.3 Chloride 101 Carbon Dioxide 22 Anion Gap 10.0 BUN 22 H Creatinine 0.7 Estimated GFR (MDRD) 112 Glucose 149 H Calcium 9.4 Total Bilirubin 1.0 AST 103 H ALT 81 H Alkaline Phosphatase 169 H Total Protein 6.9 Albumin 3.8 Globulin 3.1 Albumin/Globulin Ratio 1.2 Lipase 18 L Urine Color YELLOW Urine Clarity CLEAR Urine pH 7.0 Ur Specific [place] 1.010 Urine Protein NEGATIVE Urine Glucose (UA) NEGATIVE Urine Ketones NEGATIVE Urine Occult Blood NEGATIVE Urine Nitrite NEGATIVE Urine Bilirubin NEGATIVE Urine Urobilinogen 1 (NORMAL) Ur Leukocyte Esterase NEGATIVE Ur Microscopic Review NOT INDICATED Urine Culture Comments NOT INDICATED Nasal Adenovirus (PCR) Nasal B. parapertussis DNA (PCR) Nasal Coronavir 229E PCR Nasal Coronavir HKU1 PCR Nasal Coronavir NL63 PCR Nasal Coronavir OC43 PCR Nasal Enterovir/Rhinovir PCR Nasal Influenza B PCR Nasal Influenza A PCR Nasal Parainfluen 1 PCR Nasal Parainfluen 2 PCR Nasal Parainfluen 3 PCR Nasal Parainfluen 4 PCR Nasal RSV (PCR) Nasal B.pertussis DNA PCR Nasal C.pneumoniae (PCR) [place] Human Metapneumo PCR Nasal M.pneumoniae (PCR) Nasal SARS-CoV-2 (PCR) 12/06/20 22:54 WBC RBC Hgb Hct MCV MCH MCHC RDW Plt Count MPV Neut # (Auto) Lymph # (Auto) Davis # (Auto) Eos # (Auto) Baso # (Auto) Absolute Nucleated RBC Nucleated RBC % Sodium Potassium Chloride Carbon Dioxide Anion Gap BUN Creatinine Estimated GFR (MDRD) Glucose Calcium Total Bilirubin AST ALT Alkaline Phosphatase Total Protein Albumin Globulin Albumin/Globulin Ratio Lipase Urine Color Urine Clarity Urine pH Ur Specific [place] Urine Protein Urine Glucose (UA) Urine Ketones Urine Occult Blood Urine Nitrite Urine Bilirubin Urine Urobilinogen Ur Leukocyte Esterase Ur Microscopic Review Urine Culture Comments Nasal Adenovirus (PCR) NOT DETECTED Nasal B. parapertussis DNA (PCR) NOT DETECTED Nasal Coronavir 229E PCR NOT DETECTED Nasal Coronavir HKU1 PCR NOT DETECTED Nasal Coronavir NL63 PCR NOT DETECTED Nasal Coronavir OC43 PCR NOT DETECTED Nasal Enterovir/Rhinovir PCR NOT DETECTED Nasal Influenza B PCR NOT DETECTED Nasal Influenza A PCR NOT DETECTED Nasal Parainfluen 1 PCR NOT DETECTED Nasal Parainfluen 2 PCR NOT DETECTED Nasal Parainfluen 3 PCR NOT DETECTED Nasal Parainfluen 4 PCR NOT DETECTED Nasal RSV (PCR) NOT DETECTED Nasal B.pertussis DNA PCR NOT DETECTED Nasal C.pneumoniae (PCR) NOT DETECTED [place]ela Human Metapneumo PCR NOT DETECTED Nasal M.pneumoniae (PCR) NOT DETECTED Nasal SARS-CoV-2 (PCR) NOT DETECTED - Rads (name of study) abd/pelvic CT Radiology: Prelim report reviewed (several loops small bowel left hemiabd c/w partial small bowel obstruction.), See rad report PD MEDICAL DECISION MAKING - ED course Complexity details: re-evaluated patient (pain less, not feeling like vomiting now, so I held NG tube. ), considered differential (seems likely SBO based on history and clinical exam. 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 Talked with Yousef hospitalist who will admit the patient.) Departure - Departure Disposition: ED Place in Observation Clinical Impression: Small bowel obstruction Abdominal pain Qualifiers: Abdominal location: left upper quadrant Qualified Code(s): R10.12 - Left upper quadrant pain Condition: Stable Record reviewed to determine appropriate education?: Yes Discharge Date/Time: 12/06/20 23:46
[2020-12-06] MEDS ORDERED: KETOROLAC 30 MG/ML VIAL IVP STA (21:01)
[2020-12-06] MEDS ORDERED: HYDROmorphone 1 MG/ML CARPUJECT IVP STA (21:01)
[2020-12-06] MEDS ORDERED: SODIUM CHLORIDE 0.9% 1,000 ML IV STA (21:01)
[2020-12-06] MEDS ORDERED: IOVERSOL 320 100 ML VIAL IVP ONE ×2 (21:05→21:41)
--- NOTE | 2020-12-06 22:05 | CT Report ---
PROCEDURE: Abdomen/Pelvis W INDICATIONS: left upper abd pain abrupt today CONTRAST: IV CONTRAST: Optiray 320 ml: 100 PO CONTRAST: *NO PO CONTRAST TECHNIQUE: After the administration of IV contrast, 5 mm thick sections acquired from the diaphragms to the symp hysis. 5 mm thick coronal and sagittal reformats were acquired. For radiation dose reduction, the f ollowing was used: automated exposure control, adjustment of mA and/or kV according to patient size. COMPARISON: CT abdomen pelvis 10/06/2020 FINDINGS: Image quality: Excellent. ABDOMEN: Lung bases: Innumerable bilateral pulmonary nodules appearing relatively similar in size and number c ompared to prior exam. Heart size is normal. Solid organs: Liver demonstrates multiple heterogeneously enhancing low-attenuation foci, unchanged in terms of size and number compared to prior exam. This spleen is normal in size. Low-attenuation fo cus medially is unchanged. Gallbladder has been removed. Stent is noted within the common bile duct, appearing patent. Biliary system is non dilated. Pancreas enhances normally. No adrenal nodules. Kidneys demonstrate normal size and enhancement, without hydronephrosis. Renal cysts are noted. Peritoneum and bowel: There are several loops of prominent fluid-filled bowel within the left upper a bdomen.. Transition point is in the left quadrant on series 3 approximately image 47. Mild right post erior paracentral fluid in the dependent pelvis, increased compared to prior exam. Nodes and vessels: 2.0 cm right retrocrural lymph node is present mildly increased from 1.7 cm on lilian or exam. Aorta and inferior vena cava are normal in size. Miscellaneous: No ventral hernias. PELVIS: Genitourinary: Bladder wall thickness is normal. Miscellaneous: No inguinal hernias or adenopathy. Bones: No suspicious bony lesions. No vertebral body compression fractures. IMPRESSION: 1. Stable appearance of pulmonary metastatic disease. 2. Stable appearance of hepatic metastatic disease. 3. Minimal increased right retrocrural lymph node. 4. Several loops of dilated fluid-filled small bowel in the left hemiabdomen most consistent with a f ocus of partial small bowel obstruction. Reviewed by: Tran Huerta MD on 12/06/2020 10:04 PM PDT Approved by: Tran Huerta MD on 12/06/2020 10:04 PM PDT Station ID: [id number]
[2020-12-06] MEDS ORDERED: oxyCODONE 5 MG TABLET PO PRN (23:01)
[2020-12-06] MEDS ORDERED: ONDANSETRON 4 MG/2 ML VIAL IVP PRN (23:01)
[2020-12-06 23:05] LABS: BILIRUBIN,URINE NEGATIVE (NEGATIVE); GLUCOSE, URINE (UA) NEGATIVE (NEGATIVE); KETONES,URINE (UA) NEGATIVE (NEGATIVE); LEUKOCYTE ESTERASE, URINE NEGATIVE (NEGATIVE); NITRITE,URINE NEGATIVE (NEGATIVE); OCCULT BLOOD,URINE NEGATIVE (NEGATIVE); PROTEIN,URINE NEGATIVE (NEGATIVE); UROBILINOGEN,URINE 1 (NORMAL) E.U./dL (NORMAL)
[2020-12-06 23:07] LABS: CLARITY,URINE CLEAR (CLEAR)
--- NOTE | 2020-12-06 23:08 | HISTORY & PHYSICAL EXAMINATION ---
Chief Complaint - Chief Complaint Chief Complaint: Abdominal pain and vomiting. History of Present Illness - Admitted From Admitted From:: Home - History Obtained From Records Reviewed: Yes History obtained from: Patient, ER Physician, EMR - History of Present Illness HPI Comment/Other: This is a pleasant 70-year-old male with a past medical history significant for stage IV colon cancer with metastasis to the liver and lung, COPD, history of biliary obstruction requiring stenting who presents today complaining of abdominal pain. He states his symptoms began this morning when he woke up and he had significant abdominal pain over the left side of his abdomen. It was about an 8 out of 10. He had no associated nausea or vomiting. He was able to eat a bowl of cereal for breakfast without any vomiting. He did not have lunch or dinner due to lack of appetite. He did have a bowel movement at around 3 PM but since then has not had any further bowel movements and is not passing gas. Due to his ongoing abdominal pain, he decided to come to the emergency department. He states that he has had a 40 pound weight loss over the past 3 months secondary to poor oral intake. He is continuing to receive chemotherapy for his metastatic colon cancer. He has had biliary stenting in the past with the most recent being in February 2020. He denies any right upper quadrant abdominal pain at this time. He reports no dysuria, urgency, hematuria. He currently feels much improved after receiving pain medications in the emergency department. In the emergency department, he underwent a CT of the abdomen and pelvis which was concerning for partial small bowel obstruction. Given this finding, medicine was consulted for admission. I did discuss goals of care with the patient and he would like to be a full code. History - Past Medical History Cardiovascular: reports: Hypertension Respiratory: reports: COPD Endocrine/Autoimmune: reports: None GI: reports: Ulcers, Other (Stage IV metastatic colon cancer to the liver and lungs. Biliary obstruction secondary to metastatic disease requiring stent p lacement.) : reports: Kidney stones HEENT: reports: Chronic sinusitis Psych: reports: Depression, Anxiety, Panic attacks Musculoskeletal: reports: Osteoarthritis, Fatigue, Chronic back pain Derm: reports: None MRSA Hx?: No - Past Surgical History General: reports: Cholecystectomy, Bowel surgery, Liver surgery, Colonoscopy, EGD Cardiovascular: reports: Coronary stent HEENT: reports: Tonsil/Adenoidectomy - Family & Social History Family History: Mother: , Cancer, Father: , Cancer Family History Comment/Other: His mother from lung cancer. She was a smoker. His father from stroke after being diagnosed with leukemia. Living arrangement: At home Living Situation: Alone Social History Notes: He lives with his significant other. He smoked a pack a day for about 10 years but quit over 15 years ago. He will have an occasional alcoholic beverage. - POLST Patient has POLST: No Meds/Allgy - Home Medications Home Medications: Ambulatory Orders Medication Instructions Recorded Confirmed Albuterol Sulf [Ventolin Hfa 2 puffs INH Q4HR PRN 06/29/17 10/22/20 Inhaler] Citalopram [CeleXA] 30 mg PO DAILY 10/18/17 10/22/20 Fluticasone/Salmeterol [Advair 2 spray TANGELA BID 10/18/17 10/22/20 250-50 Diskus] Aspirin [Adult Aspirin Regimen] 81 mg PO DAILY 10/21/19 10/22/20 Cyanocobalamin (Vitamin B-12) 1,000 mcg PO DAILY 10/21/19 10/22/20 [Vitamin B-12] Ipratropium/Albuterol [Combivent 2 puffs IH BID 10/21/19 10/22/20 Respimat] Ondansetron [Ondansetron Odt] 8 mg PO BID PRN 11/07/19 10/22/20 Mouthwash Compounding Base 227 5 ml ORAL QID MDD 5-6 times 02/12/20 10/22/20 [Mouthwash-Om] Nystatin 5 ml PO QID PRN 04/01/20 10/22/20 amLODIPine [Norvasc] 10 mg PO DAILY 04/29/20 10/22/20 Umeclidinium [place] [Incruse 1 inh INH DAILY 08/13/20 10/22/20 Ellipta] oxyCODONE/ACET 5/325 [Percocet 5 1 - 2 each PO Q4HR PRN 08/13/20 10/22/20 mg/325 mg] LORazepam [Ativan] 1 - 2 tab PO HS PRN #60 tablet MDD 10/22/20 1mg Zolpidem Tartrate [Ambien] 10 mg PO QPM PRN #30 tablet 10/22/20 Metoclopramide [Reglan] 10 mg PO Q6H PRN 11/07/20 11/07/20 Prochlorperazine Maleate 10 mg PO Q6HR PRN #30 tab 11/18/20 [Compazine] Omeprazole 40 mg PO DAILY #90 cap 12/03/20 dexAMETHasone [Decadron] 2 mg PO DAILY #30 tablet 12/03/20 - Allergies Allergies/Adverse Reactions: Allergies Allergy/AdvReac Type Severity Reaction Status Date / Time nitrous oxide [Nitrous Oxide] AdvReac Hallucinati Verified 12/06/20 19:37 ons tramadol AdvReac Nausea Verified 12/06/20 19:37 Review of Systems - Constitutional Constitutional: reports: Poor appetite, Weight loss. denies: Fever, Chills - Ears, Nose & Throat Ears, Nose & Throat: denies: Nasal discharge, Postnasal drainage - Cardiovascular Cariovascular: denies: Chest pain, Edema, Exertional dyspnea, Decr. exercise tolerance - Respiratory Respiratory: denies: Cough, SOB at rest, SOB with exertion - Gastrointestinal Gastrointestinal: reports: Abdominal pain, Constipation, Change in bowel habits, Poor appetite. denies: Diarrhea, Nausea, Vomiting - Genitourinary Genitourinary: denies: Dysuria, Frequency, Urgency, Hematuria - Musculoskeletal Musculoskeletal: reports: Back pain. denies: Muscle pain - Integumentary Integumentary: denies: Rash - Neurological Neurological: denies: General weakness, Focal weakness - Hematologic/Lymphatic Hematologic/Lymphatic: denies: Anemia, Bleeding tendencies - All Other Systems All Other Systems: reports: Reviewed and negative Prior Level of Functionality: He is still independent with his ADLs. Exam - Vital Signs Vital Signs: Vital Signs x48h Temp Pulse Resp BP Pulse Ox 12/06/20 23:03 72 125/93 H 96 12/06/20 21:15 71 14 140/91 H 98 12/06/20 19:37 36.7 C 87 16 130/86 H 95 - Physical Exam General Appearance: positive: No acute distress, Alert Eyes Bilateral: positive: Normal inspection, Conjunctivae nml ENT: positive: ENT inspection nml Neck: positive: Nml inspection Respiratory: positive: No respiratory distress, Other (Diminished bilaterally.). negative: Wheezes, Rales Cardiovascular: positive: Regular rate & rhythm, No murmur. negative: Tachycardia Abdomen: positive: Nml bowel sounds, No distention, Tenderness (He has mild tenderness just superior to left lower quadrant.), Other (Prior surgical incisions noted.). negative: Non-tender, Guarding, Rebound, Abnml bowel sounds Skin: positive: Warm, Dry Extremities: positive: No pedal edema Neurologic/Psychiatric: negative: Disoriented to person, Disoriented to place Conclusion/Plan - Problem List (1) Small bowel obstruction Conclusion/Plan: He unfortunately with abdominal pain and CT is concerning for a partial small bowel obstruction. I am hopeful this is related to adhesions from his prior abdominal surgeries and not due to progression of his malignancy. He does appear improved at this moment upon my evaluation. We will place him in observ ation we will hold off on NG tube given his lack of emesis. Hydrate with IV lactated Ringer's and morphine as needed for pain control. Zofran as needed for nausea. The emergency department physician did speak with general surgery who recommended supportive care at this time but if the patient did need surgical intervention that this would be best at a higher level of care such at the [facility]. If the patient does not improve over the next few days then we will consider transfer to higher level of care. Appreciate general surgery input. (2) Metastatic colon cancer to liver Conclusion/Plan: He has known stage IV colon cancer with metastasis to the liver and lung. He has had biliary obstruction secondary to his metastatic disease and has had biliary stenting with the most recent being in February 2020. He is currently being followed by Dr. Parker here at the [facility]. He is also being seen by Anila Omer of palliative care. The plan is for him to follow-up in December with oncology to reevaluate for continuation of palliative 5- fluorouracil/Bevacizumabversus considering alternatives. (3) History of biliary duct stent placement Conclusion/Plan: He had stenting in February 2020 at the [facility] due to obstruction secondary to metastatic disease. His LFTs are mildly elevated today compared to the past few lab values although his T bilirubin is normal. CT of the abdomen and pelvis revealed a patent stent and the biliary system is not dilated. At this time we will continue to monitor his LFTs. If they continue to rise will consider right upper quadrant ultrasound. We do not have MRCP available over the weekend. (4) COPD (chronic obstructive pulmonary disease) Conclusion/Plan: Stable and not in exacerbation. We will continue his home inhalers and DuoNeb as needed. (5) Severe protein-calorie malnutrition Conclusion/Plan: He has had a 40 pound weight loss over the past 3 months and his BMI is now 18. He appears malnourished with loss of muscle mass. Once he is taking p.o., we will encourage Ensure with meals. - Lab Results Lab results reviewed: Yes Fish Bones: 12/06/20 20:17 12/06/20 20:17 - Diagnostic Imaging Results Diagnostic Imaging Results: positive: Final report reviewed Core Measures - Anticipated LOS I expect patient to be DC'd or transferred within 96 hours.: Yes - Issues Hospital Issues and Management Plan: 70-year-old male with history of stage IV metastatic colon cancer who presents today with abdominal pain and vomiting found to have a partial small bowel obstruction. We will place in observation for pain control, IV hydration, bowel rest and NG tube placement. - DVT/VTE - Prophylaxis VTE/DVT Device ordered at admit?: Yes VTE/DVT Prophylaxis med ordered at admit?: Yes
[2020-12-06 23:49] LABS: B. PARAPERTUSSIS- RESP PCR PAN NOT DETECTED; B. PERTUSSIS- RESP PCR PANEL NOT DETECTED; C. PNEUMONIAE- RESP PCR PANEL NOT DETECTED; CORONAVIRUS 229E-RESP PCR NOT DETECTED; CORONAVIRUS HKU1-RESP PCR NOT DETECTED; CORONAVIRUS NL63-RESP PCR NOT DETECTED; CORONAVIRUS OC43-RESP PCR NOT DETECTED; HUMAN METAPNEUMOVIRUS NOT DETECTED; INFLUENZA A- RESP PCR PANEL NOT DETECTED; INFLUENZA B - RESP PCR PANEL NOT DETECTED; M. PNEUMONIAE- RESP PCR PANEL NOT DETECTED; PARAINFLUENZA VIRUS 1 NOT DETECTED; PARAINFLUENZA VIRUS 2 NOT DETECTED; PARAINFLUENZA VIRUS 3 NOT DETECTED; PARAINFLUENZA VIRUS 4 NOT DETECTED; RHINOVIRUS/ENTEROVIRUS NOT DETECTED; RSV- RESP PCR PANEL NOT DETECTED; SARS-CoV-2 -RESP PCR PANEL NOT DETECTED
[2020-12-07] MEDS: LACTATED RINGERS 1,000 ML IV SCH ×2 (00:10→10:08)
[2020-12-07] MEDS: MORPHINE 2 MG/ML CARPUJECT IVP PRN ×4 (00:11→23:42)
[2020-12-07] MEDS: SODIUM CHLORIDE FLUSH 0.9% 10 ML SYRINGE IVP SCH ×4 (00:11→23:42)
--- NOTE | 2020-12-07 00:34 | ADVANCE CARE PLANNING NOTE ---
Advance Care Planning - Planning Encounter Date: 12/06/20 Time: 23:40 Purpose: To clarify goals of care. Parties in Attendance: The patient and his nurse, Danni. Decisional Capacity of the Patient: He has the ability to make his own medical decisions. - Diagnosis for Encounter (1) Small bowel obstruction Summary: He now presents abdominal pain and imaging is concerning for partial small bowel obstruction. He has multiple risk factor including colon cancer and multiple abdominal surgeries. He is placed in observation for pain control and IV hydration. (2) Metastatic colon cancer to liver Summary: He has known stage IV metastatic colon cancer with mets to the liver and lung. This was initially diagnosed in 2010 as stage II colon cancer. Unfortunately he had relapse in 2014 with evidence of metastasis and was treated with chemotherapy at that time. He is currently receiving treatment with 5- fluorouracil and Bevacizumab. He follows with Dr. Parker of oncology here at the [facility]. (3) History of biliary duct stent placement Summary: This is stable at this moment but he does have a history of biliary stenting due to malignant biliary obsturction. (4) Severe protein-calorie malnutrition Summary: He has had weight loss and appears malnourished this is likely due to poor appetite secondary to his malignancy and likely the chemotherapy. - Encounter Subjective/Patient's Story: He currently resides at home with his significant other and he has grandson whom he wishes to continue to support. He reports doing well from a physical standpoint and is still quite physically independent. He cannot walk as far as he used to due to his underlying COPD but he does not need a walker or a cane. He does admit to a 40 pound weight loss over the past 3 months. He is still quite happy with his quality of life at this time. Objective/Medical Story: The patient has known colon cancer with mets to liver and lung. He is currently undergoing chemotherapy as mentioned above. He has been hospitalized a few times over the past year for biliary obstruction secondary to liver metastasis. This now fortunately appears to be stable. He continues to follow with oncology and receiving 5-fluorouracil for his malignancy. He had a repeat CT of the chest a few days ago to monitor his pulmonary metastasis which appear to have progressed. He is scheduled to see oncology again in 2 weeks for follow-up to discuss continuing current therapy or to consider alternative treatments. He is also being seen by Anila Omer of palliative care. He is now admitted for a partial small bowel obstruction after presenting with abdominal pain. He is placed in observation for pain control and IV hydration. Goals of Care: He wishes at this time to continue to receive therapy for his colon cancer. He is not wishing to give up on this. He is still quite happy with his quality of life and he wants to be there for his grandson. He wants to be a full code. Plan: At this time he will continue to be a full code as per his wishes. He would like to continue to follow-up with oncology and to receive treatment for his co edilberto cancer. He will continue to follow-up with Anila Omer of palliative care on discharge. Additional Discussion: We discussed what entails of CPR. Code Status: Attempt Resuscitation Time spent on advance care plannin
[2020-12-07 05:16] LABS: HCT - HEMATOCRIT 36.3 % (42.0-52.0); HGB - HEMOGLOBIN 12.2 g/dL (14.0-18.0); LYMPHOCYTES # (AUTO) 0.4 10^3/uL (1.5-3.5); LYMPHOCYTES % (AUTO) 5.6 %; MEAN CORPUSCULAR HEMOGLOBIN 34.7 pg (27.0-31.0); MEAN CORPUSCULAR HGB CONC 33.6 g/dL (32.0-36.0); MEAN CORPUSCULAR VOLUME 103.1 fL (80.0-94.0); MEAN PLATELET VOLUME 10.2 fL (7.4-11.4); MONOCYTES # (AUTO) 0.6 10^3/uL (0.0-1.0); MONOCYTES % (AUTO) 8.5 %; NEUTROPHILS # (AUTO) 5.6 10^3/uL (1.5-6.6); NEUTROPHILS % (AUTO) 85.6 %; PLT - PLATELET COUNT 221 10^3/uL (130-450); RED BLOOD COUNT 3.52 10^6/uL (4.70-6.10); RED CELL DISTRIBUTION WIDTH 19.6 % (12.0-15.0); WHITE BLOOD COUNT 6.5 x10^3/uL (4.8-10.8)
[2020-12-07 05:36] LABS: CALCIUM 9.1 mg/dL (8.5-10.3); CREATININE 0.6 mg/dL (0.6-1.2); MAGNESIUM 1.9 mg/dL (1.7-2.8); POTASSIUM 4.5 mmol/L (3.5-5.0)
[2020-12-07] MEDS: BUDESONIDE 0.5 MG/2 ML NEB INH SCH ×2 (07:33→19:24)
[2020-12-07] MEDS: FORMOTEROL FUMARATE NEB 20 MCG/2 ML INH SCH ×2 (07:33→19:24)
[2020-12-07] MEDS: ENOXAPARIN 40 MG/0.4 ML SYRINGE SUBQ SCH (08:12)
[2020-12-07] MEDS: ACETAMINOPHEN 325 MG TABLET PO PRN ×2 (11:44→20:24)
--- NOTE | 2020-12-07 11:56 | PHARMACY PROGRESS NOTE ---
- Best Possible Medication History Admit Date and Time: 12/06/20 1767 Processed by: Pharmacy Medication History completed: Yes Patient Interview: Completed Secondary Source(s): Physician records, Pharmacy records, Insurance records As the person ultimately responsible for medication therapy, providers are able to order a medication from an existing home medication list in [facility] via the "Reconcile Routine" prior to Confirmation of that medication by ground support equipment fitter. Such practice is discouraged except when the physician, in their clinical judgment, deems that a medical need exists for a medication without regard to previous use.
--- NOTE | 2020-12-07 12:43 | PROVIDER PROGRESS NOTE ---
Subjective - Prog Note Date Prog Note Date: 12/07/20 Prog Note Time: 12:41 Current Medications - Current Medications Current Medications: Current Medications Generic Name Dose Route Start Last Admin Trade Name Freq PRN Reason Stop Dose Admin Acetaminophen 650 mg 12/06/20 23:01 12/07/20 11:44 Acetaminophen 325 Mg Tablet PO 650 mg Q4HR PRN Administration Pain 1 to 4 Budesonide 0.5 mg 12/07/20 07:00 12/07/20 07:33 Budesonide 0.5 Mg/2 Ml Neb INH 0.5 mg RTBID ONEIDA Administration Enoxaparin Sodium 40 mg 12/07/20 09:00 12/07/20 08:12 Enoxaparin 40 Mg/0.4 Ml Syringe SUBQ 40 mg DAILY ONEIDA Administration Formoterol Fumarate 20 mcg 12/07/20 07:00 12/07/20 07:33 Formoterol Fumarate Neb 20 Mcg/2 Ml INH 20 mcg RTBID ONEIDA Administration Lactated Ringer's 1,000 mls @ 100 mls/hr 12/06/20 23:45 12/07/20 10:08 Lr IV 12/07/20 19:44 100 mls/hr .Q10H ONEIDA Administration Morphine Sulfate 2 mg 12/06/20 23:01 12/07/20 10:12 Morphine 2 Mg/Ml Carpuject IVP 2 mg Q2HR PRN Administration Pain 8 to 10 Sodium Chloride 10 ml 12/07/20 01:00 12/07/20 08:12 Sodium Chloride Flush 0.9% 10 Ml Syringe IVP Not Given 0100,0900,1700 [facility] Objective - Vital Signs/Intake & Output Reviewed Vital Signs: Yes Vital Signs: Vital Signs x48h Temp Pulse Pulse Resp BP Pulse Ox 12/07/20 11:07 36.3 C L 74 16 138/91 H 93 12/07/20 07:41 88 18 12/07/20 07:22 36.4 C L 87 16 139/87 H Intake & Output: Intake & Output 12/04/20 12/05/20 12/06/20 12/07/20 23:59 23:59 23:59 23:59 Intake Total 1000 1476.667 Balance 1000 1476.667 - Objective General Appearance: positive: No acute distress Eyes Bilateral: positive: Normal inspection ENT: positive: ENT inspection nml Neck: positive: Nml inspection Respiratory: positive: Chest non-tender Cardiovascular: positive: Regular rate & rhythm, No murmur, No gallop Abdomen: positive: No organomegaly, No distention, Tenderness (Mild lower abdominal tenderness, per patient much improved compared with prior), Abnml bowel sounds (Bowel sounds are present but hypoactive) Back: positive: Nml inspection Skin: positive: Color nml Extremities: positive: Nml appearance Neurologic/Psychiatric: positive: Oriented x3 - Lab Results Fish Bones: 12/07/20 04:37 12/07/20 04:37 Other Labs: Lab Results x24hrs 12/07/20 12/07/20 12/06/20 Range/Units 04:37 04:37 22:54 WBC 6.5 (4.8-10.8) x10^3/uL RBC 3.52 L (4.70-6.10) 10^6/uL Hgb 12.2 L (14.0-18.0) g/dL Hct 36.3 L (42.0-52.0) % MCV 103.1 H (80.0-94.0) fL MCH 34.7 H (27.0-31.0) pg MCHC 33.6 (32.0-36.0) g/dL RDW 19.6 H (12.0-15.0) % Plt Count 221 (130-450) 10^3/uL MPV 10.2 (7.4-11.4) fL Neut # (Auto) 5.6 (1.5-6.6) 10^3/uL Lymph # (Auto) 0.4 L (1.5-3.5) 10^3/uL [place] # (Auto) 0.6 (0.0-1.0) 10^3/uL Eos # (Auto) 0.0 (0.0-0.7) 10^3/uL Baso # (Auto) 0.0 (0.0-0.1) 10^3/uL Absolute Nucleated RBC 0.00 x10^3/uL Nucleated RBC % 0.0 /100WBC Sodium 136 (135-145) mmol/L Potassium 4.5 (3.5-5.0) mmol/L Chloride 104 (101-111) mmol/L Carbon Dioxide 23 (21-32) mmol/L Anion Gap 9.0 (6-13) BUN 21 H (6-20) mg/dL Creatinine 0.6 (0.6-1.2) mg/dL Estimated GFR (MDRD) 134 (>89) Glucose 128 H (70-100) mg/dL Calcium 9.1 (8.5-10.3) mg/dL Magnesium 1.9 (1.7-2.8) mg/dL Total Bilirubin (0.2-1.0) mg/dL AST (10-42) IU/L ALT (10-60) IU/L Alkaline Phosphatase (42-121) IU/L Total Protein (6.7-8.2) g/dL Albumin (3.2-5.5) g/dL Globulin (2.1-4.2) g/dL Albumin/Globulin Ratio (1.0-2.2) Lipase (22-51) U/L Urine Color Urine Clarity (CLEAR) Urine pH (5.0-7.5) PH Ur Specific [place] (1.002-1.030) Urine Protein (NEGATIVE) mg/dL Urine Glucose (UA) (NEGATIVE) mg/dL Urine Ketones (NEGATIVE) mg/dL Urine Occult Blood (NEGATIVE) Urine Nitrite (NEGATIVE) Urine Bilirubin (NEGATIVE) Urine Urobilinogen (NORMAL) E.U./dL Ur Leukocyte Esterase (NEGATIVE) Ur Microscopic Review Urine Culture Comments Nasal Adenovirus (PCR) NOT DETECTED Nasal B. parapertussis DNA (PCR) NOT DETECTED Nasal Coronavir 229E PCR NOT DETECTED Nasal Coronavir HKU1 PCR NOT DETECTED Nasal Coronavir NL63 PCR NOT DETECTED Nasal Coronavir OC43 PCR NOT DETECTED Nasal Enterovir/Rhinovir PCR NOT DETECTED Nasal Influenza B PCR NOT DETECTED Nasal Influenza A PCR NOT DETECTED Nasal Parainfluen 1 PCR NOT DETECTED Nasal Parainfluen 2 PCR NOT DETECTED Nasal Parainfluen 3 PCR NOT DETECTED Nasal Parainfluen 4 PCR NOT DETECTED Nasal RSV (PCR) NOT DETECTED Nasal B.pertussis DNA PCR NOT DETECTED Nasal C.pneumoniae (PCR) NOT DETECTED [place] Human Metapneumo PCR NOT DETECTED Nasal M.pneumoniae (PCR) NOT DETECTED Nasal SARS-CoV-2 (PCR) NOT DETECTED 12/06/20 12/06/20 12/06/20 Range/Units 22:46 20:17 20:17 WBC 8.9 (4.8-10.8) x10^3/uL RBC 3.77 L (4.70-6.10) 10^6/uL Hgb 13.0 L (14.0-18.0) g/dL Hct 38.5 L (42.0-52.0) % MCV 102.1 H (80.0-94.0) fL MCH 34.5 H (27.0-31.0) pg MCHC 33.8 (32.0-36.0) g/dL RDW 19.9 H (12.0-15.0) % Plt Count 249 (130-450) 10^3/uL MPV 10.3 (7.4-11.4) fL Neut # (Auto) 8.4 H (1.5-6.6) 10^3/uL Lymph # (Auto) 0.2 L (1.5-3.5) 10^3/uL [place] # (Auto) 0.3 (0.0-1.0) 10^3/uL Eos # (Auto) 0.0 (0.0-0.7) 10^3/uL Baso # (Auto) 0.0 (0.0-0.1) 10^3/uL Absolute Nucleated RBC 0.00 x10^3/uL Nucleated RBC % 0.0 /100WBC Sodium 133 L (135-145) mmol/L Potassium 4.3 (3.5-5.0) mmol/L Chloride 101 (101-111) mmol/L Carbon Dioxide 22 (21-32) mmol/L Anion Gap 10.0 (6-13) BUN 22 H (6-20) mg/dL Creatinine 0.7 (0.6-1.2) mg/dL Estimated GFR (MDRD) 112 (>89) Glucose 149 H (70-100) mg/dL Calcium 9.4 (8.5-10.3) mg/dL Magnesium (1.7-2.8) mg/dL Total Bilirubin 1.0 (0.2-1.0) mg/dL AST 103 H (10-42) IU/L ALT 81 H (10-60) IU/L Alkaline Phosphatase 169 H (42-121) IU/L Total Protein 6.9 (6.7-8.2) g/dL Albumin 3.8 (3.2-5.5) g/dL Globulin 3.1 (2.1-4.2) g/dL Albumin/Globulin Ratio 1.2 (1.0-2.2) Lipase 18 L (22-51) U/L Urine Color YELLOW Urine Clarity CLEAR (CLEAR) Urine pH 7.0 (5.0-7.5) PH Ur Specific [place] 1.010 (1.002-1.030) Urine Protein NEGATIVE (NEGATIVE) mg/dL Urine Glucose (UA) NEGATIVE (NEGATIVE) mg/dL Urine Ketones NEGATIVE (NEGATIVE) mg/dL Urine Occult Blood NEGATIVE (NEGATIVE) Urine Nitrite NEGATIVE (NEGATIVE) Urine Bilirubin NEGATIVE (NEGATIVE) Urine Urobilinogen 1 (NORMAL) (NORMAL) E.U./dL Ur Leukocyte Esterase NEGATIVE (NEGATIVE) Ur Microscopic Review NOT INDICATED Urine Culture Comments NOT INDICATED Nasal Adenovirus (PCR) Nasal B. parapertussis DNA (PCR) Nasal Coronavir 229E PCR Nasal Coronavir HKU1 PCR Nasal Coronavir NL63 PCR Nasal Coronavir OC43 PCR Nasal Enterovir/Rhinovir PCR Nasal Influenza B PCR Nasal Influenza A PCR Nasal Parainfluen 1 PCR Nasal Parainfluen 2 PCR Nasal Parainfluen 3 PCR Nasal Parainfluen 4 PCR Nasal RSV (PCR) Nasal B.pertussis DNA PCR Nasal C.pneumoniae (PCR) [place] Human Metapneumo PCR Nasal M.pneumoniae (PCR) Nasal SARS-CoV-2 (PCR) - Diagnostic Imaging Diagnostic Imaging Results: positive: Final report reviewed Assessment/Plan - Problem List (1) Small bowel obstruction Impression: Diagnostic imaging on CT scan suggests partial small bowel obstruction. Patient is clinically presenting consistent with a partial rather than complete small bowel obstruction insomuch that he is passing gas, has some bowel sounds on exam, and has been able to tolerate a clear liquid diet. Patient is unlikely to require NG tube decompression today and may be able to resolve this with conservative management alone. Discussed with general surgery, Dr. Jurado who was kind enough to consult on the patient but we are in agreement no indication for surgical intervention at this time. He suggested possible barium swallow follow-through study in 24 to 48 hours if there is still question about resolution of the SBO. Otherwise, if patient improves clinically can possibly discharge home. If not, and if he requires surgical management he will need to transfer to [facility]. For now, given his benign clinical picture will advance from clear liquid diet to full liquid diet and monitor throughout the day. I am unlikely to advance his diet any further today regardless of how well he does but possibly tomorrow. (2) COPD (chronic obstructive pulmonary disease) Impression: Stable. Saturating well on room air without wheezing or shortness of breath. Monitor and provide oxygen if needed. Continue current meds. (3) History of biliary duct stent placement Impression: No evidence of involvement of previously placed biliary stent done in February 2020 due to obstruction secondary to metastatic disease. Though he does have some mildly elevated LFTs, nothing clinically is indicating this requires intervention at this time. We will monitor labs and clinical picture with serial abdominal exams until discharge. (4) Metastatic colon cancer to liver Impression: Metastatic colon cancer with metastatic disease to liver and lung. Followed by Dr. Hoang at the [facility] clinic as well as Anila Omer with palliative care. Has a follow-up in December with oncology for continuation of palliative 5- fluorouracil/bevacizumab versus considering alternatives. Given the overall clinical picture, would consider discussing with palliative care and oncology prior to sending him to [facility] for surgery to make sure this is in line with goals of care and would provide meaningful improvement to his quality of life and/or extending his life. (5) Severe protein-calorie malnutrition Impression: With malnutrition prior to admission likely related to metastatic disease. Given SBO will still have to limit nutritional supplementation for short-term, and unlikely this will progress to long-term management but if so will need enteral feeding of some sort.
--- NOTE | 2020-12-07 12:53 | CONSULTATION NOTE ---
Referring Provider Name of Referring Provider:: Bharathi Chief Complaint - Chief Complaint Chief Complaint: abdominal pain History of Present Illness - History of Present Illness HPI Comment/Other: Mr. Marin is a 70-year-old very pleasant gentleman. He presented to the emergency room with abdominal bloating with emesis. He had obstipation. Unfortunately his medical course is significant for stage IV colon cancer with metastatic disease to the liver and lungs. He is being followed in [place] for this care. And currently undergoing chemotherapy. He states that his pain is improved he has been passing gas had a bowel movement feels much better. The scan was reviewed which shows a partial obstruction. He is nontoxic and does not have an acute surgical abdomen. Agree with medical admission with slow advancement of diet, if he fails nonsurgical options he should be transferred to a higher level facility due to his prognosis and past surgical history. I discussed this with the patient and he agrees and understands. I have spoken with the hospitalist who also are in agreement. History - Past Medical History Cardiovascular: reports: Hypertension Respiratory: reports: COPD, Shortness of breath Neuro: reports: None Endocrine/Autoimmune: reports: None GI: reports: Ulcers, Other : reports: Kidney stones HEENT: reports: Chronic sinusitis Psych: reports: Depression, Anxiety, Panic attacks Musculoskeletal: reports: Osteoarthritis, Fatigue, Other Derm: reports: None MRSA Hx?: No - Past Surgical History General: reports: Bowel surgery, Liver surgery, Colonoscopy, Other Ortho: reports: Other Cardiovascular: reports: Coronary stent, Other HEENT: reports: Tonsil/Adenoidectomy - Family & Social History Family History: Mother: , Cancer, Father: , Cancer, Brother: Alive and Well Family History Comment/Other: His mother from lung cancer. She was a smoker. His father from stroke after being diagnosed with leukemia. Living arrangement: At home Living Situation: Alone Social History Notes: He lives with his significant other. He smoked a pack a day for about 10 years but quit over 15 years ago. He will have an occasional alcoholic beverage. - Substance History Use: Uses substance without health or social issues: Cannabis - POLST Patient has POLST: No POLST Status: Full Code Meds/Allgy - Home Medications Home Medications: Ambulatory Orders Medication Instructions Recorded Confirmed Citalopram [CeleXA] 30 mg PO DAILY 10/18/17 12/07/20 Fluticasone/Salmeterol [Advair 1 inh INH BID 10/18/17 12/07/20 250-50 Diskus] Aspirin [Adult Aspirin Regimen] 81 mg PO DAILY 10/21/19 12/07/20 Cyanocobalamin (Vitamin B-12) 1,000 mcg PO DAILY 10/21/19 12/07/20 [Vitamin B-12] Ondansetron [Ondansetron Odt] 8 mg PO BID PRN 11/07/19 12/07/20 Mouthwash Compounding Base 227 5 ml ORAL QID MDD 5-6 times 02/12/20 12/07/20 [Mouthwash-Om] amLODIPine [Norvasc] 10 mg PO DAILY 04/29/20 12/07/20 Umeclidinium Floral [Incruse 1 inh INH DAILY 08/13/20 12/07/20 Ellipta] oxyCODONE/ACET 5/325 [Percocet 5 1 each PO Q6H PRN 08/13/20 12/07/20 mg/325 mg] LORazepam [Ativan] 1 - 2 tab PO HS PRN #60 tablet MDD 10/22/20 12/07/20 1mg Zolpidem Tartrate [Ambien] 10 mg PO QPM PRN #30 tablet 10/22/20 12/07/20 Metoclopramide [Reglan] 10 mg PO Q6H PRN 11/07/20 12/07/20 Omeprazole 40 mg PO DAILY #90 cap 12/03/20 12/07/20 Ipratropium/Albuterol [Combivent 1 puffs INH QID PRN 12/07/20 12/07/20 Respimat] Sennosides [Senna] 8.6 mg PO BID 12/07/20 12/07/20 dexAMETHasone [Decadron] 8 mg PO DAILY 12/07/20 12/07/20 - Allergies Allergies/Adverse Reactions: Allergies Allergy/AdvReac Type Severity Reaction Status Date / Time nitrous oxide [Nitrous Oxide] AdvReac Hallucinati Verified 12/06/20 19:37 ons tramadol AdvReac Nausea Verified 12/06/20 19:37 Exam - Vital Signs Vital Signs: Vital Signs x48h Temp Pulse Pulse Resp BP Pulse Ox 12/07/20 11:07 36.3 C L 74 16 138/91 H 93 12/07/20 07:41 88 18 12/07/20 07:22 36.4 C L 87 16 139/87 H - Physical Exam General Appearance: positive: No acute distress Eyes Bilateral: positive: Normal inspection ENT: positive: Pharynx nml Neck: positive: Trachea midline Respiratory: positive: No respiratory distress Cardiovascular: positive: Regular rate & rhythm Peripheral Pulses: positive: 2+ Abdomen: positive: Other (No rebound or gaurding. Distedended and tympanitic.) Conclusion and Plan - Lab Results Laboratory Results 12/07/20 04:37: Sodium 136, Potassium 4.5, Chloride 104, Carbon Dioxide 23, Anion Gap 9.0, BUN 21 H, Creatinine 0.6, Estimated GFR (MDRD) 134, Glucose 128 H, Calcium 9.1, Magnesium 1.9 12/07/20 04:37: WBC 6.5, RBC 3.52 L, Hgb 12.2 L, Hct 36.3 L, MCV 103.1 H, MCH 34.7 H, MCHC 33.6, RDW 19.6 H, Plt Count 221, MPV 10.2, Neut # (Auto) 5.6, Lymph # (Auto) 0.4 L, [place] # (Auto) 0.6, Eos # (Auto) 0.0, Baso # (Auto) 0.0, Absolute Nucleated RBC 0.00, Nucleated RBC % 0.0 12/06/20 22:54: Nasal Adenovirus (PCR) NOT DETECTED, Nasal B. parapertussis DNA (PCR) NOT DETECTED, Nasal Coronavir 229E PCR NOT DETECTED, Nasal Coronavir HKU1 PCR NOT DETECTED, Nasal Coronavir NL63 PCR NOT DETECTED, Nasal Coronavir OC43 PCR NOT DETECTED, Nasal Enterovir/Rhinovir PCR NOT DETECTED, Nasal Influenza B PCR NOT DETECTED, Nasal Influenza A PCR NOT DETECTED, Nasal Parainfluen 1 PCR NOT DETECTED, Nasal Parainfluen 2 PCR NOT DETECTED, Nasal Parainfluen 3 PCR NOT DETECTED, Nasal Parainfluen 4 PCR NOT DETECTED, Nasal RSV (PCR) NOT DETECTED, Nasal B.pertussis DNA PCR NOT DETECTED, Nasal C.pneumoniae (PCR) NOT DETECTED, Hill Human Metapneumo PCR NOT DETECTED, Nasal M.pneumoniae (PCR) NOT DETECTED, Nasal SARS-CoV-2 (PCR) NOT DETECTED 12/06/20 22:46: Urine Color YELLOW, Urine Clarity CLEAR, Urine pH 7.0, Ur Specific [place] 1.010, Urine Protein NEGATIVE, Urine Glucose (UA) NEGATIVE, Urine Ketones NEGATIVE, Urine Occult Blood NEGATIVE, Urine Nitrite NEGATIVE, Urine Bilirubin NEGATIVE, Urine Urobilinogen 1 (NORMAL), Ur Leukocyte Esterase NEGATIVE, Ur Microscopic Review NOT INDICATED, Urine Culture Comments NOT INDICATED 12/06/20 20:17: Sodium 133 L, Potassium 4.3, Chloride 101, Carbon Dioxide 22, Anion Gap 10.0, BUN 22 H, Creatinine 0.7, Estimated GFR (MDRD) 112, Glucose 149 H, Calcium 9.4, Total Bilirubin 1.0, AST 103 H, ALT 81 H, Alkaline Phosphatase 169 H, Total Protein 6.9, Albumin 3.8, Globulin 3.1, Albumin/Globulin Ratio 1.2, Lipase 18 L 12/06/20 20:17: WBC 8.9, RBC 3.77 L, Hgb 13.0 L, Hct 38.5 L, MCV 102.1 H, MCH 34.5 H, MCHC 33.8, RDW 19.9 H, Plt Count 249, MPV 10.3, Neut # (Auto) 8.4 H, Lymph # (Auto) 0.2 L, [place] # (Auto) 0.3, Eos # (Auto) 0.0, Baso # (Auto) 0.0, Absolute Nucleated RBC 0.00, Nucleated RBC % 0.0 - Consultation Note Consultation Note: Resolving partial small bowel obstruction and a stage IV colon cancer with metastatic disease to the liver and lungs. No acute surgical intervention needed. Slow advancement of diet would be recommended with referral to his surgical/oncology team in [place].
[2020-12-08] MEDS: ACETAMINOPHEN 325 MG TABLET PO PRN ×2 (04:32→11:21)
[2020-12-08 04:43] LABS: BASOPHILS % (AUTO) 0.1 %; EOSINOPHILS # (AUTO) 0.1 10^3/uL (0.0-0.7); EOSINOPHILS % (AUTO) 0.7 %; HCT - HEMATOCRIT 40.2 % (42.0-52.0); HGB - HEMOGLOBIN 13.4 g/dL (14.0-18.0); LYMPHOCYTES # (AUTO) 1.4 10^3/uL (1.5-3.5); LYMPHOCYTES % (AUTO) 14.2 %; MEAN CORPUSCULAR HEMOGLOBIN 34.1 pg (27.0-31.0); MEAN CORPUSCULAR HGB CONC 33.3 g/dL (32.0-36.0); MEAN CORPUSCULAR VOLUME 102.3 fL (80.0-94.0); MEAN PLATELET VOLUME 9.8 fL (7.4-11.4); MONOCYTES # (AUTO) 1.5 10^3/uL (0.0-1.0); MONOCYTES % (AUTO) 15.3 %; NEUTROPHILS # (AUTO) 6.7 10^3/uL (1.5-6.6); NEUTROPHILS % (AUTO) 69.2 %; PLT - PLATELET COUNT 237 10^3/uL (130-450); RED BLOOD COUNT 3.93 10^6/uL (4.70-6.10); RED CELL DISTRIBUTION WIDTH 18.6 % (12.0-15.0); WHITE BLOOD COUNT 9.7 x10^3/uL (4.8-10.8)
[2020-12-08 04:49] LABS: CALCIUM 8.9 mg/dL (8.5-10.3); CREATININE 0.5 mg/dL (0.6-1.2); POTASSIUM 4.1 mmol/L (3.5-5.0)
[2020-12-08] MEDS: FORMOTEROL FUMARATE NEB 20 MCG/2 ML INH SCH ×2 (07:50→20:00)
[2020-12-08] MEDS: BUDESONIDE 0.5 MG/2 ML NEB INH SCH ×2 (07:50→20:00)
[2020-12-08] MEDS: MORPHINE 2 MG/ML CARPUJECT IVP PRN (08:14)
[2020-12-08] MEDS: SODIUM CHLORIDE FLUSH 0.9% 10 ML SYRINGE IVP SCH ×2 (08:15→15:57)
[2020-12-08] MEDS: ENOXAPARIN 40 MG/0.4 ML SYRINGE SUBQ SCH (08:15)
--- NOTE | 2020-12-08 10:36 | PROVIDER PROGRESS NOTE ---
Subjective - Prog Note Date Prog Note Date: 12/08/20 Prog Note Time: 10:34 - Subjective Pt reports feeling: Improved (Patient was able to tolerate a full liquid diet yesterday. Pain is manageable however does not feel like he is getting much relief with morphine requesting Dilaudid instead as this was used in the ER and it works better.) Current Medications - Current Medications Current Medications: Current Medications Generic Name Dose Route Start Last Admin Trade Name Freq PRN Reason Stop Dose Admin Acetaminophen 650 mg 12/06/20 23:01 12/08/20 04:32 Acetaminophen 325 Mg Tablet PO 650 mg Q4HR PRN Administration Pain 1 to 4 Budesonide 0.5 mg 12/07/20 07:00 12/08/20 07:50 Budesonide 0.5 Mg/2 Ml Neb INH 0.5 mg RTBID ONEIDA Administration Enoxaparin Sodium 40 mg 12/07/20 09:00 12/08/20 08:15 Enoxaparin 40 Mg/0.4 Ml Syringe SUBQ 40 mg DAILY ONEIDA Administration Formoterol Fumarate 20 mcg 12/07/20 07:00 12/08/20 07:50 Formoterol Fumarate Neb 20 Mcg/2 Ml INH 20 mcg RTBID ONEIDA Administration Morphine Sulfate 2 mg 12/06/20 23:01 12/08/20 08:14 Morphine 2 Mg/Ml Carpuject IVP 2 mg Q2HR PRN Administration Pain 8 to 10 Sodium Chloride 10 ml 12/07/20 01:00 12/08/20 08:15 Sodium Chloride Flush 0.9% 10 Ml Syringe IVP 10 ml 0100,0900,1700 ONEIDA Administration Objective - Vital Signs/Intake & Output Reviewed Vital Signs: Yes Vital Signs: Vital Signs x48h Temp Pulse Pulse Resp BP Pulse Ox 12/08/20 07:52 74 18 12/08/20 07:35 36.3 C L 68 16 138/84 H 95 12/08/20 04:25 36.7 C 84 16 146/96 H 93 Intake & Output: Intake & Output 12/05/20 12/06/20 12/07/20 12/08/20 23:59 23:59 23:59 23:59 Intake Total 1000 3476.667 720 Balance 1000 3476.667 720 - Objective General Appearance: positive: No acute distress, Other (Appears thin and underweight) Eyes Bilateral: positive: Normal inspection ENT: positive: ENT inspection nml Neck: positive: Nml inspection Respiratory: positive: Chest non-tender Cardiovascular: positive: Regular rate & rhythm, No murmur, No gallop Abdomen: positive: No organomegaly, No distention, Tenderness (Mild generalized tenderness worse in the lower portions of the abdomen), Abnml bowel sounds. negative: Guarding, Rebound, Hepatomegaly, Splenomegaly, Mass Extremities: positive: Nml appearance Neurologic/Psychiatric: positive: Oriented x3 - Lab Results Fish Bones: 12/08/20 04:25 12/08/20 04:25 Other Labs: Lab Results x24hrs 12/08/20 12/08/20 Range/Units 04:25 04:25 WBC 9.7 (4.8-10.8) x10^3/uL RBC 3.93 L (4.70-6.10) 10^6/uL Hgb 13.4 L (14.0-18.0) g/dL Hct 40.2 L (42.0-52.0) % MCV 102.3 H (80.0-94.0) fL MCH 34.1 H (27.0-31.0) pg MCHC 33.3 (32.0-36.0) g/dL RDW 18.6 H (12.0-15.0) % Plt Count 237 (130-450) 10^3/uL MPV 9.8 (7.4-11.4) fL Neut # (Auto) 6.7 H (1.5-6.6) 10^3/uL Lymph # (Auto) 1.4 L (1.5-3.5) 10^3/uL [place] # (Auto) 1.5 H (0.0-1.0) 10^3/uL Eos # (Auto) 0.1 (0.0-0.7) 10^3/uL Baso # (Auto) 0.0 (0.0-0.1) 10^3/uL Absolute Nucleated RBC 0.00 x10^3/uL Nucleated RBC % 0.0 /100WBC Sodium 134 L (135-145) mmol/L Potassium 4.1 (3.5-5.0) mmol/L Chloride 102 (101-111) mmol/L Carbon Dioxide 24 (21-32) mmol/L Anion Gap 8.0 (6-13) BUN 19 (6-20) mg/dL Creatinine 0.5 L (0.6-1.2) mg/dL Estimated GFR (MDRD) 165 (>89) Glucose 101 H (70-100) mg/dL Calcium 8.9 (8.5-10.3) mg/dL Magnesium 2.0 (1.7-2.8) mg/dL Assessment/Plan - Problem List (1) Small bowel obstruction Impression: Likely small bowel obstruction given passing of gas and presence of bowel sounds. Pain is mildly improved, generally stable. Tolerated full liquid diet yesterday well. Patient is hungry and requesting to advance diet. Will check x-ray to follow-up progression of obstruction and if improving or at least not worsened, will try him on a soft diet. Tomorrow if not having bowel movements, consider oral Gastrografin challenge. (2) COPD (chronic obstructive pulmonary disease) Impression: Stable. Not in exacerbation. Continue current meds. (3) History of biliary duct stent placement Impression: No evidence of involvement of previously placed biliary stent done in February 2020 due to obstruction secondary to metastatic disease. Though he does have some mildly elevated LFTs, nothing clinically is indicating this requires intervention at this time. We will monitor labs and clinical picture with serial abdominal exams until discharge. (4) Metastatic colon cancer to liver Impression: Metastatic colon cancer with metastatic disease to liver and lung. Followed by Dr. Hoang at the [facility] clinic as well as Anila Omer with palliative care. Has a follow-up in December with oncology for continuation of palliative 5- fluorouracil/bevacizumab versus considering alternatives. Given the overall clinical picture, would consider discussing with palliative care and oncology prior to sending him to [facility] for surgery to make sure this is in line with goals of care and would provide meaningful improvement to his quality of life and/or extending his life. (5) Severe protein-calorie malnutrition Impression: With malnutrition prior to admission likely related to metastatic disease. Given SBO will still have to limit nutritional supplementation for short-term, and unlikely this will progress to long-term management but if so will need enteral feeding of some sort.
[2020-12-08] MEDS: SODIUM CHLORIDE FLUSH 0.9% 10 ML SYRINGE IVP PRN ×2 (11:22→19:16)
[2020-12-08] MEDS: HYDROmorphone 0.5 MG/0.5 ML SYRINGE IVP PRN ×2 (11:22→15:56)
--- NOTE | 2020-12-08 12:20 | XRAY Report ---
PROCEDURE: Abdomen 1 View X-Ray INDICATIONS: Abdominal Pain, F/u SBO TECHNIQUE: 1 view of the abdomen were acquired. COMPARISON: CT abdomen and pelvis dated 12/06/2020 FINDINGS: Surgical changes and devices: Multiple right upper quadrant clips, metal biliary stent. Bowel: No pneumoperitoneum. Nonspecific bowel gas pattern. No evidence of bowel obstruction. Soft tissues: No masses; visualized solid organ contours appear normal in size. No suspicious abdom inal calcifications. Bones: No suspicious bony abnormalities. IMPRESSION: 1. Metal biliary stent in place. 2. Nonspecific bowel gas pattern with no evidence of bowel obstruction. Reviewed by: Derrell Keenan MD on 12/08/2020 11:19 AM JACOB Approved by: Derrell Keenan MD on 12/08/2020 11:19 AM JACOB Station ID: [id number]
[2020-12-08] MEDS: KETOROLAC 15 MG/ML VIAL IVP PRN (19:16)
--- NOTE | 2020-12-08 20:29 | PROVIDER PROGRESS NOTE ---
Subjective - General Admit Date: 12/07/20 - Review of Systems All Other Systems: positive: Reviewed and negative Objective - Patient Data Vital Signs: Vital Signs x48h Temp Pulse Pulse Resp BP Pulse Ox 12/08/20 20:06 76 18 12/08/20 15:40 36.3 C L 58 L 16 131/81 H 94 Weight: Weight 12/06/20 12/07/20 12/08/20 23:59 23:59 23:59 Weight (kg) 52 kg 50.5 kg Intake & Output: Intake and Output Totals x24h 12/06/20 12/07/20 12/08/20 23:59 23:59 23:59 Intake Total 1000 3476.667 1320 Balance 1000 3476.667 1320 - Lab Results Lab Results: 12/08/20 04:25 12/08/20 04:25 Other Lab Results: Lab Results x24hrs 12/08/20 12/08/20 Range/Units 04:25 04:25 WBC 9.7 (4.8-10.8) x10^3/uL RBC 3.93 L (4.70-6.10) 10^6/uL Hgb 13.4 L (14.0-18.0) g/dL Hct 40.2 L (42.0-52.0) % MCV 102.3 H (80.0-94.0) fL MCH 34.1 H (27.0-31.0) pg MCHC 33.3 (32.0-36.0) g/dL RDW 18.6 H (12.0-15.0) % Plt Count 237 (130-450) 10^3/uL MPV 9.8 (7.4-11.4) fL Neut # (Auto) 6.7 H (1.5-6.6) 10^3/uL Lymph # (Auto) 1.4 L (1.5-3.5) 10^3/uL [place] # (Auto) 1.5 H (0.0-1.0) 10^3/uL Eos # (Auto) 0.1 (0.0-0.7) 10^3/uL Baso # (Auto) 0.0 (0.0-0.1) 10^3/uL Absolute Nucleated RBC 0.00 x10^3/uL Nucleated RBC % 0.0 /100WBC Sodium 134 L (135-145) mmol/L Potassium 4.1 (3.5-5.0) mmol/L Chloride 102 (101-111) mmol/L Carbon Dioxide 24 (21-32) mmol/L Anion Gap 8.0 (6-13) BUN 19 (6-20) mg/dL Creatinine 0.5 L (0.6-1.2) mg/dL Estimated GFR (MDRD) 165 (>89) Glucose 101 H (70-100) mg/dL Calcium 8.9 (8.5-10.3) mg/dL Magnesium 2.0 (1.7-2.8) mg/dL - Current Medications Current Medications: Current Medications Generic Name Dose Route Start Last Admin Trade Name Freq PRN Reason Stop Dose Admin Acetaminophen 650 mg 12/06/20 23:01 12/08/20 11:21 Acetaminophen 325 Mg Tablet PO 650 mg Q4HR PRN Administration Pain 1 to 4 Budesonide 0.5 mg 12/07/20 07:00 12/08/20 20:00 Budesonide 0.5 Mg/2 Ml Neb INH 0.5 mg RTBID ONEIDA Administration Enoxaparin Sodium 40 mg 12/07/20 09:00 12/08/20 08:15 Enoxaparin 40 Mg/0.4 Ml Syringe SUBQ 40 mg DAILY ONEIDA Administration Formoterol Fumarate 20 mcg 12/07/20 07:00 12/08/20 20:00 Formoterol Fumarate Neb 20 Mcg/2 Ml INH 20 mcg RTBID ONEIDA Administration Ketorolac Tromethamine 15 mg 12/08/20 17:19 12/08/20 19:16 Ketorolac 15 Mg/Ml Vial IVP 12/13/20 17:18 15 mg Q6HR PRN Administration PAIN Sodium Chloride 10 ml 12/06/20 23:01 12/08/20 19:16 Sodium Chloride Flush 0.9% 10 Ml Syringe IVP 10 ml PRN PRN Administration NEEDED PER PROVIDER ORDERS Sodium Chloride 10 ml 12/07/20 01:00 12/08/20 15:57 Sodium Chloride Flush 0.9% 10 Ml Syringe IVP 10 ml 0100,0900,1700 ONEIDA Administration Impression/Plan - Problem List Problem List: Patient seen and examined. Remains nontoxic. X-rays without evidence of obstruction. Tinges to have flatus and small BM. Slowly advance diet with advancement of bowel regimen. Surgery will sign off. On exam patient has a benign abdomen.
[2020-12-09] MEDS: SODIUM CHLORIDE FLUSH 0.9% 10 ML SYRINGE IVP SCH ×3 (01:09→16:24)
[2020-12-09] MEDS: KETOROLAC 15 MG/ML VIAL IVP PRN ×4 (01:09→22:50)
[2020-12-09] MEDS: SODIUM CHLORIDE FLUSH 0.9% 10 ML SYRINGE IVP PRN ×2 (01:09→22:51)
[2020-12-09 05:17] LABS: BASOPHILS % (AUTO) 0.1 %; EOSINOPHILS # (AUTO) 0.3 10^3/uL (0.0-0.7); EOSINOPHILS % (AUTO) 3.8 %; HCT - HEMATOCRIT 39.2 % (42.0-52.0); HGB - HEMOGLOBIN 13.1 g/dL (14.0-18.0); LYMPHOCYTES # (AUTO) 1.2 10^3/uL (1.5-3.5); LYMPHOCYTES % (AUTO) 14.8 %; MEAN CORPUSCULAR HEMOGLOBIN 34.2 pg (27.0-31.0); MEAN CORPUSCULAR HGB CONC 33.4 g/dL (32.0-36.0); MEAN CORPUSCULAR VOLUME 102.3 fL (80.0-94.0); MEAN PLATELET VOLUME 10.1 fL (7.4-11.4); MONOCYTES % (AUTO) 12.8 %; NEUTROPHILS # (AUTO) 5.5 10^3/uL (1.5-6.6); NEUTROPHILS % (AUTO) 67.6 %; PLT - PLATELET COUNT 210 10^3/uL (130-450); RED BLOOD COUNT 3.83 10^6/uL (4.70-6.10); RED CELL DISTRIBUTION WIDTH 18.7 % (12.0-15.0); WHITE BLOOD COUNT 8.1 x10^3/uL (4.8-10.8)
[2020-12-09 05:33] LABS: CALCIUM 8.8 mg/dL (8.5-10.3); CREATININE 0.6 mg/dL (0.6-1.2); MAGNESIUM 1.9 mg/dL (1.7-2.8); POTASSIUM 4.2 mmol/L (3.5-5.0)
[2020-12-09] MEDS: ENOXAPARIN 40 MG/0.4 ML SYRINGE SUBQ SCH (08:03)
[2020-12-09] MEDS ORDERED: GLYCERIN ADULT SUPP PR PRN (08:33)
[2020-12-09] MEDS: polyethylene glycoL 3350 17 GM PACKET PO SCH (08:52)
[2020-12-09] MEDS: IPRATROPIUM/ALBUTEROL 3 ML NEB INH PRN ×2 (09:02→21:46)
[2020-12-09] MEDS: BUDESONIDE 0.5 MG/2 ML NEB INH SCH ×2 (09:02→21:46)
[2020-12-09] MEDS: FORMOTEROL FUMARATE NEB 20 MCG/2 ML INH SCH ×2 (09:02→21:46)
--- NOTE | 2020-12-09 16:26 | PROVIDER PROGRESS NOTE ---
Subjective - Prog Note Date Prog Note Date: 12/09/20 Prog Note Time: 16:24 - Subjective Pt reports feeling: Worse (Patient started complaining of dizziness today which she was previously not having. His abdominal pain improved, and he is rating that at a 1-2. He continues to have gas however has not passed a bowel movement yet. He has been able however to tolerate a regular diet.) Current Medications - Current Medications Current Medications: Current Medications Generic Name Dose Route Start Last Admin Trade Name Freq PRN Reason Stop Dose Admin Acetaminophen 650 mg 12/06/20 23:01 12/08/20 11:21 Acetaminophen 325 Mg Tablet PO 650 mg Q4HR PRN Administration Pain 1 to 4 Albuterol/Ipratropium 3 ml 12/07/20 00:19 12/09/20 09:02 Ipratropium/Albuterol 3 Ml Neb INH 3 ml Q4HR PRN Administration Wheezing Budesonide 0.5 mg 12/07/20 07:00 12/09/20 09:02 Budesonide 0.5 Mg/2 Ml Neb INH 0.5 mg RTBID ONEIDA Administration Enoxaparin Sodium 40 mg 12/07/20 09:00 12/09/20 08:03 Enoxaparin 40 Mg/0.4 Ml Syringe SUBQ 40 mg DAILY ONEIDA Administration Formoterol Fumarate 20 mcg 12/07/20 07:00 12/09/20 09:02 Formoterol Fumarate Neb 20 Mcg/2 Ml INH 20 mcg RTBID ONEIDA Administration Ketorolac Tromethamine 15 mg 12/08/20 17:19 12/09/20 16:24 Ketorolac 15 Mg/Ml Vial IVP 12/13/20 17:18 15 mg Q6HR PRN Administration PAIN Polyethylene Glycol 17 gm 12/09/20 09:00 12/09/20 08:52 Polyethylene Glycol 3350 17 Gm Packet PO 17 gm DAILY ONEIDA Administration Sodium Chloride 10 ml 12/06/20 23:01 12/09/20 01:09 Sodium Chloride Flush 0.9% 10 Ml Syringe IVP 10 ml PRN PRN Administration NEEDED PER PROVIDER ORDERS Sodium Chloride 10 ml 12/07/20 01:00 12/09/20 16:24 Sodium Chloride Flush 0.9% 10 Ml Syringe IVP 10 ml 0100,0900,1700 ONEIDA Administration Objective - Vital Signs/Intake & Output Reviewed Vital Signs: Yes Vital Signs: Vital Signs x48h Temp Pulse Pulse Resp BP Pulse Ox 12/09/20 15:50 36.5 C 76 20 131/93 H 96 12/09/20 12:49 36.3 C L 92 18 132/89 H 96 12/09/20 09:03 80 20 12/09/20 08:28 36.2 C L 85 18 127/96 H 93 Intake & Output: Intake & Output 12/06/20 12/07/20 12/08/20 12/09/20 23:59 23:59 23:59 23:59 Intake Total 1000 3476.667 1620 520 Balance 1000 3476.667 1620 520 - Objective General Appearance: positive: No acute distress Eyes Bilateral: positive: Normal inspection Respiratory: positive: Chest non-tender, No respiratory distress, Breath sounds nml Cardiovascular: positive: Regular rate & rhythm, No murmur, No gallop Abdomen: positive: No organomegaly, Nml bowel sounds, No distention, Tenderness (Mild to moderate midepigastric and left lower quadrant tenderness) Skin: positive: Color nml, No rash, Warm Extremities: positive: Non-tender, Full ROM, Nml appearance Neurologic/Psychiatric: positive: Oriented x3, CN's nml (2-12) - Lab Results Fish Bones: 12/09/20 05:10 12/09/20 05:10 Other Labs: Lab Results x24hrs 12/09/20 12/09/20 Range/Units 05:10 05:10 WBC 8.1 (4.8-10.8) x10^3/uL RBC 3.83 L (4.70-6.10) 10^6/uL Hgb 13.1 L (14.0-18.0) g/dL Hct 39.2 L (42.0-52.0) % MCV 102.3 H (80.0-94.0) fL MCH 34.2 H (27.0-31.0) pg MCHC 33.4 (32.0-36.0) g/dL RDW 18.7 H (12.0-15.0) % Plt Count 210 (130-450) 10^3/uL MPV 10.1 (7.4-11.4) fL Neut # (Auto) 5.5 (1.5-6.6) 10^3/uL Lymph # (Auto) 1.2 L (1.5-3.5) 10^3/uL [place] # (Auto) 1.0 (0.0-1.0) 10^3/uL Eos # (Auto) 0.3 (0.0-0.7) 10^3/uL Baso # (Auto) 0.0 (0.0-0.1) 10^3/uL Absolute Nucleated RBC 0.00 x10^3/uL Nucleated RBC % 0.0 /100WBC Sodium 137 (135-145) mmol/L Potassium 4.2 (3.5-5.0) mmol/L Chloride 103 (101-111) mmol/L Carbon Dioxide 27 (21-32) mmol/L Anion Gap 7.0 (6-13) BUN 22 H (6-20) mg/dL Creatinine 0.6 (0.6-1.2) mg/dL Estimated GFR (MDRD) 134 (>89) Glucose 92 (70-100) mg/dL Calcium 8.8 (8.5-10.3) mg/dL Magnesium 1.9 (1.7-2.8) mg/dL - Diagnostic Imaging Diagnostic Imaging Results: positive: Final report reviewed Assessment/Plan - Problem List (1) Small bowel obstruction Impression: Partial SBO seems to have improved in the sense that patient is able to tolerate a regular diet, continues to pass gas, and is no longer requiring narcotic pain medication. However, he has still not had a bowel movement and after his first meal since admission, he started to complain of dizziness/lightheadedness. I suspect he is still partially obstructed but there is no indication at this point for a Gastrografin study. I anticipate as long as we can control his pain with oral pain medication, if we can get him to have a bowel movement by tomorrow he will likely be able to discharge tomorrow. I started MiraLAX and ordered a glycerin suppository as needed. (2) COPD (chronic obstructive pulmonary disease) Impression: Not in exacerbation. Continue to monitor. (3) History of biliary duct stent placement Impression: No evidence of involvement of previously placed biliary stent done in February 2020 due to obstruction secondary to metastatic disease. Though he does have some mildly elevated LFTs, nothing clinically is indicating this requires intervention at this time. We will monitor labs and clinical picture with serial abdominal exams until discharge. (4) Metastatic colon cancer to liver Impression: Metastatic colon cancer with metastatic disease to liver and lung. Followed by Dr. Hoang at the [facility] clinic as well as Anila Omer with palliative care. Has a follow-up in December with oncology for continuation of palliative 5-fluorouracil/bevacizumab versus considering alternatives. Given the overall clinical picture, would consider discussing with palliative care and oncology prior to sending him to [facility] for surgery to make sure this is in line with goals of care and would provide meaningful improvement to his quality of life and/or extending his life (5) Severe protein-calorie malnutrition Impression: With malnutrition prior to admission likely related to metastatic disease. Given SBO will still have to limit nutritional supplementation for short-term, and unlikely this will progress to long-term management but if so will need enteral feeding of some sort.
[2020-12-10] MEDS: SODIUM CHLORIDE FLUSH 0.9% 10 ML SYRINGE IVP SCH ×4 (00:09→23:24)
[2020-12-10] MEDS: HYDROmorphone 0.5 MG/0.5 ML SYRINGE IVP PRN ×2 (02:55→17:27)
[2020-12-10 06:06] LABS: BASOPHILS % (AUTO) 0.1 %; EOSINOPHILS # (AUTO) 0.4 10^3/uL (0.0-0.7); EOSINOPHILS % (AUTO) 4.7 %; HCT - HEMATOCRIT 37.9 % (42.0-52.0); HGB - HEMOGLOBIN 12.8 g/dL (14.0-18.0); LYMPHOCYTES % (AUTO) 12.9 %; MEAN CORPUSCULAR HEMOGLOBIN 34.2 pg (27.0-31.0); MEAN CORPUSCULAR HGB CONC 33.8 g/dL (32.0-36.0); MEAN CORPUSCULAR VOLUME 101.3 fL (80.0-94.0); MEAN PLATELET VOLUME 10.6 fL (7.4-11.4); MONOCYTES # (AUTO) 1.1 10^3/uL (0.0-1.0); MONOCYTES % (AUTO) 14.5 %; NEUTROPHILS # (AUTO) 5.3 10^3/uL (1.5-6.6); PLT - PLATELET COUNT 208 10^3/uL (130-450); RED BLOOD COUNT 3.74 10^6/uL (4.70-6.10); RED CELL DISTRIBUTION WIDTH 18.8 % (12.0-15.0); WHITE BLOOD COUNT 7.9 x10^3/uL (4.8-10.8)
[2020-12-10 06:12] LABS: CALCIUM 8.7 mg/dL (8.5-10.3); CREATININE 0.7 mg/dL (0.6-1.2); MAGNESIUM 2.1 mg/dL (1.7-2.8); POTASSIUM 4.2 mmol/L (3.5-5.0)
[2020-12-10] MEDS: BUDESONIDE 0.5 MG/2 ML NEB INH SCH ×2 (07:50→20:51)
[2020-12-10] MEDS: IPRATROPIUM/ALBUTEROL 3 ML NEB INH PRN ×2 (07:50→20:51)
[2020-12-10] MEDS: FORMOTEROL FUMARATE NEB 20 MCG/2 ML INH SCH ×2 (07:50→20:51)
[2020-12-10] MEDS: polyethylene glycoL 3350 17 GM PACKET PO SCH (09:05)
[2020-12-10] MEDS: ENOXAPARIN 40 MG/0.4 ML SYRINGE SUBQ SCH (09:06)
[2020-12-10] MEDS: KETOROLAC 15 MG/ML VIAL IVP PRN ×3 (09:06→23:32)
[2020-12-10] MEDS: SENNA 8.6 MG TABLET PO SCH (09:16)
[2020-12-10] MEDS: DOCUSATE SODIUM 250 MG CAPSULE PO SCH (09:16)
[2020-12-10] MEDS: SODIUM CHLORIDE FLUSH 0.9% 10 ML SYRINGE IVP PRN (14:45)
[2020-12-10] MEDS ORDERED: MAGNESIUM CITRATE 296 ML BOTTLE PO PRN (16:23)
--- NOTE | 2020-12-10 16:29 | PROVIDER PROGRESS NOTE ---
Assessment/Plan - Problem List (1) Small bowel obstruction Assessment/Plan: Partial small bowel obstruction is improved. Patient is able to tolerate his regular diet. He continues to have flatulence but no bowel movement. Docusate and senna were added to his bowel regimen. By afternoon when patient still had not had a bowel movement mag citrate was added. Anticipating discharge tomorrow. (2) COPD (chronic obstructive pulmonary disease) Assessment/Plan: Not in exacerbation. We will continue to monitor. (3) History of biliary duct stent placement Assessment/Plan: No evidence of involvement of previously placed biliary stent done in February 2020 due to obstruction secondary to metastatic disease. Though he does have some mildly elevated LFTs, nothing clinically is indicating this requires intervention at this time. We will monitor labs and clinical picture with serial abdominal exams until discharge. (4) Metastatic colon cancer to liver Assessment/Plan: Metastatic colon cancer with metastatic disease to liver and lung. Followed by Dr. Hoang at the [facility] clinic as well as Anila Omer with palliative care. Has a follow-up in December with oncology for continuation of palliative 5- fluorouracil/bevacizumab versus considering alternatives. Given the overall clinical picture, would consider discussing with palliative care and oncology prior to sending him to [facility] for surgery to make sure this is in line with goals of care and would provide meaningful improvement to his quality of life and/or extending his life (5) Severe protein-calorie malnutrition Assessment/Plan: Currently tolerating his regular diet - Current Meds Current Meds: Current Medications Generic Name Dose Route Start Last Admin Trade Name Freq PRN Reason Stop Dose Admin Acetaminophen 650 mg 12/06/20 23:01 12/08/20 11:21 Acetaminophen 325 Mg Tablet PO 650 mg Q4HR PRN Administration Pain 1 to 4 Albuterol/Ipratropium 3 ml 12/07/20 00:19 12/10/20 07:50 Ipratropium/Albuterol 3 Ml Neb INH 3 ml Q4HR PRN Administration Wheezing Budesonide 0.5 mg 12/07/20 07:00 12/10/20 07:50 Budesonide 0.5 Mg/2 Ml Neb INH 0.5 mg RTBID ONEIDA Administration Docusate Sodium 250 - 500 mg 12/10/20 10:00 12/10/20 09:16 Docusate Sodium 250 Mg Capsule PO 500 mg DAILY ONEIDA Administration Enoxaparin Sodium 40 mg 12/07/20 09:00 12/10/20 09:06 Enoxaparin 40 Mg/0.4 Ml Syringe SUBQ 40 mg DAILY ONEIDA Administration Formoterol Fumarate 20 mcg 12/07/20 07:00 12/10/20 07:50 Formoterol Fumarate Neb 20 Mcg/2 Ml INH 20 mcg RTBID ONEIDA Administration Glycerin 1 supp 12/09/20 08:33 12/09/20 22:45 Glycerin Adult Supp HI 1 supp DAILY PRN Administration Constipation Hydromorphone HCl 0.5 mg 12/08/20 17:21 12/10/20 02:55 Hydromorphone 0.5 Mg/0.5 Ml Syringe IVP 0.5 mg Q8H PRN Administration Severe Pain Ketorolac Tromethamine 15 mg 12/08/20 17:19 12/10/20 14:58 Ketorolac 15 Mg/Ml Vial IVP 12/13/20 17:18 15 mg Q6HR PRN Administration PAIN Polyethylene Glycol 17 gm 12/09/20 09:00 12/10/20 09:05 Polyethylene Glycol 3350 17 Gm Packet PO 17 gm DAILY ONEIDA Administration Senna 8.6 - 17.2 mg 12/10/20 10:00 12/10/20 09:16 Senna 8.6 Mg Tablet PO 17.2 mg DAILY ONEIDA Administration Sodium Chloride 10 ml 12/06/20 23:01 12/10/20 14:45 Sodium Chloride Flush 0.9% 10 Ml Syringe IVP 10 ml PRN PRN Administration NEEDED PER PROVIDER ORDERS Sodium Chloride 10 ml 12/07/20 01:00 12/10/20 09:06 Sodium Chloride Flush 0.9% 10 Ml Syringe IVP 10 ml 0100,0900,1700 ONEIDA Administration - Lab Result Fish Bone Diagrams: 12/10/20 05:36 12/10/20 05:36 - Additional Planning My Orders: My Active Orders 12/10/20 16:23 Magnesium Citrate 296 ml PO ONCE PRN Subjective - Subjective Patient Reports: Other (Resting comfortably in bed. Ate 90% of his breakfast. Reported 3 out of 10 pain. Has been passing gas but no bowel movement. Denied any other complaints.) Objective Vital Signs: Vital Signs - 24 hr 12/09/20 12/09/20 12/10/20 21:00 21:22 00:56 Temperature 36.4 C L 36.6 C Heart Rate 83 Heart Rate [ 83 86 Brachial] Respiratory 16 20 20 Rate Blood Pressure [Left Brachial artery] Blood Pressure 135/96 H 116/80 [Right Brachial artery] O2 Saturation 95 12/10/20 12/10/20 12/10/20 05:34 07:35 07:50 Temperature 36.5 C 36.4 C L Heart Rate 72 Heart Rate [ 63 91 Brachial] Respiratory 16 16 16 Rate Blood Pressure [Left Brachial artery] Blood Pressure 117/88 H 124/88 H [Right Brachial artery] O2 Saturation 95 93 12/10/20 12/10/20 12:44 16:06 Temperature 36.3 C L 36.6 C Heart Rate Heart Rate [ 79 77 Brachial] Respiratory 16 16 Rate Blood Pressure 136/81 H [Left Brachial artery] Blood Pressure 119/87 H [Right Brachial artery] O2 Saturation 95 95 Oxygen O2 Source Room air I&O (Last 24 Hrs): Intake and Output Totals x24h 12/08/20 12/09/20 12/10/20 23:59 23:59 23:59 Intake Total 2358 347 0625 Output Total 0 Balance 5716 273 5633 General: Alert, Oriented x3, Mild distress, Other (Frail/ cachexic) HEENT: Atraumatic, PERRLA, EOMI Neck: Supple, No JVD Neuro: Alert, Non Focal, Oriented Times 3 Cardiovascular: Regular rate, No murmurs Respiratory: Chest non-tender, No respiratory distress, Breath sounds nml Abdomen: Normal bowel sounds, Soft Extremities: No clubbing, No edema, No tenderness/swelling Skin: No rashes, No breakdown - Results Results: Laboratory Results WBC 7.9 x10^3/uL (4.8-10.8) 12/10/20 05:36 RBC 3.74 10^6/uL (4.70-6.10) L 12/10/20 05:36 Hgb 12.8 g/dL (14.0-18.0) L 12/10/20 05:36 Hct 37.9 % (42.0-52.0) L 12/10/20 05:36 MCV 101.3 fL (80.0-94.0) H 12/10/20 05:36 MCH 34.2 pg (27.0-31.0) H 12/10/20 05:36 MCHC 33.8 g/dL (32.0-36.0) 12/10/20 05:36 RDW 18.8 % (12.0-15.0) H 12/10/20 05:36 Plt Count 208 10^3/uL (130-450) 12/10/20 05:36 MPV 10.6 fL (7.4-11.4) 12/10/20 05:36 Neut # (Auto) 5.3 10^3/uL (1.5-6.6) 12/10/20 05:36 Lymph # (Auto) 1.0 10^3/uL (1.5-3.5) L 12/10/20 05:36 [place] # (Auto) 1.1 10^3/uL (0.0-1.0) H 12/10/20 05:36 Eos # (Auto) 0.4 10^3/uL (0.0-0.7) 12/10/20 05:36 Baso # (Auto) 0.0 10^3/uL (0.0-0.1) 12/10/20 05:36 Absolute Nucleated RBC 0.00 x10^3/uL 12/10/20 05:36 Nucleated RBC % 0.0 /100WBC 12/10/20 05:36 Sodium 136 mmol/L (135-145) 12/10/20 05:36 Potassium 4.2 mmol/L (3.5-5.0) 12/10/20 05:36 Chloride 103 mmol/L (101-111) 12/10/20 05:36 Carbon Dioxide 24 mmol/L (21-32) 12/10/20 05:36 Anion Gap 9.0 (6-13) 12/10/20 05:36 BUN 26 mg/dL (6-20) H 12/10/20 05:36 Creatinine 0.7 mg/dL (0.6-1.2) 12/10/20 05:36 Estimated GFR (MDRD) 112 (>89) 12/10/20 05:36 Glucose 90 mg/dL (70-100) 12/10/20 05:36 Calcium 8.7 mg/dL (8.5-10.3) 12/10/20 05:36 Magnesium 2.1 mg/dL (1.7-2.8) 12/10/20 05:36 Total Bilirubin 1.0 mg/dL (0.2-1.0) 12/06/20 20:17 AST 103 IU/L (10-42) H 12/06/20 20:17 ALT 81 IU/L (10-60) H 12/06/20 20:17 Alkaline Phosphatase 169 IU/L (42-121) H 12/06/20 20:17 Total Protein 6.9 g/dL (6.7-8.2) 12/06/20 20:17 Albumin 3.8 g/dL (3.2-5.5) 12/06/20 20:17 Globulin 3.1 g/dL (2.1-4.2) 12/06/20 20:17 Albumin/Globulin Ratio 1.2 (1.0-2.2) 12/06/20 20:17 Lipase 18 U/L (22-51) L 12/06/20 20:17 Urine Color YELLOW 12/06/20 22:46 Urine Clarity CLEAR (CLEAR) 12/06/20 22:46 Urine pH 7.0 PH (5.0-7.5) 12/06/20 22:46 Ur Specific [place] 1.010 (1.002-1.030) 12/06/20 22:46 Urine Protein NEGATIVE mg/dL (NEGATIVE) 12/06/20 22:46 Urine Glucose (UA) NEGATIVE mg/dL (NEGATIVE) 12/06/20 22:46 Urine Ketones NEGATIVE mg/dL (NEGATIVE) 12/06/20 22:46 Urine Occult Blood NEGATIVE (NEGATIVE) 12/06/20 22:46 Urine Nitrite NEGATIVE (NEGATIVE) 12/06/20 22:46 Urine Bilirubin NEGATIVE (NEGATIVE) 12/06/20 22:46 Urine Urobilinogen 1 (NORMAL) E.U./dL (NORMAL) 12/06/20 22:46 Ur Leukocyte Esterase NEGATIVE (NEGATIVE) 12/06/20 22:46 Ur Microscopic Review NOT INDICATED 12/06/20 22:46 Urine Culture Comments NOT INDICATED 12/06/20 22:46 Nasal Adenovirus (PCR) NOT DETECTED 12/06/20 22:54 Nasal B. parapertussis DNA (PCR) NOT DETECTED 12/06/20 22:54 Nasal Coronavir 229E PCR NOT DETECTED 12/06/20 22:54 Nasal Coronavir HKU1 PCR NOT DETECTED 12/06/20 22:54 Nasal Coronavir NL63 PCR NOT DETECTED 12/06/20 22:54 Nasal Coronavir OC43 PCR NOT DETECTED 12/06/20 22:54 Nasal Enterovir/Rhinovir PCR NOT DETECTED 12/06/20 22:54 Nasal Influenza B PCR NOT DETECTED 12/06/20 22:54 Nasal Influenza A PCR NOT DETECTED 12/06/20 22:54 Nasal Parainfluen 1 PCR NOT DETECTED 12/06/20 22:54 Nasal Parainfluen 2 PCR NOT DETECTED 12/06/20 22:54 Nasal Parainfluen 3 PCR NOT DETECTED 12/06/20 22:54 Nasal Parainfluen 4 PCR NOT DETECTED 12/06/20 22:54 Nasal RSV (PCR) NOT DETECTED 12/06/20 22:54 Nasal B.pertussis DNA PCR NOT DETECTED 12/06/20 22:54 Nasal C.pneumoniae (PCR) NOT DETECTED 12/06/20 22:54 [place] Human Metapneumo PCR NOT DETECTED 12/06/20 22:54 Nasal M.pneumoniae (PCR) NOT DETECTED 12/06/20 22:54 Nasal SARS-CoV-2 (PCR) NOT DETECTED 12/06/20 22:54 - Procedures Procedures: Procedures COLONOSCOPY (05/02/13) EXCISION OF SIGMOID COLON, ENDO, DIAGN (08/19/15) INSERTION OF INFUSION DEV INTO SUP VENA CAVA, PERC APPROACH (09/17/15) INSERTION OF TOTALLY IMPLANTABLE VASC ACCESS DEVIC (10/12/14) INSERTION OF VAD INTO L UP ARM SUBCU/FASCIA, PERC APPROACH (09/17/15) INSPECTION OF LOWER INTESTINAL TRACT, ENDO (07/18/18) RELEASE MEDIAN NERVE, OPEN APPROACH (10/26/16) ABX Reporting Has patient been on IV antibiotics over the past 48 hours?: No
[2020-12-10] MEDS: PANTOPRAZOLE 40 MG TABLET PO SCH (22:22)
[2020-12-10] MEDS: CALCIUM CARBONATE CHEW 500 MG TABLET PO PRN (22:22)
[2020-12-11] MEDS: HYDROmorphone 0.5 MG/0.5 ML SYRINGE IVP PRN (01:36)
[2020-12-11] MEDS: SODIUM CHLORIDE FLUSH 0.9% 10 ML SYRINGE IVP PRN (01:36)
[2020-12-11 05:46] LABS: BASOPHILS % (AUTO) 0.1 %; EOSINOPHILS # (AUTO) 0.5 10^3/uL (0.0-0.7); EOSINOPHILS % (AUTO) 5.5 %; HCT - HEMATOCRIT 39.1 % (42.0-52.0); HGB - HEMOGLOBIN 13.4 g/dL (14.0-18.0); LYMPHOCYTES # (AUTO) 0.8 10^3/uL (1.5-3.5); LYMPHOCYTES % (AUTO) 9.7 %; MEAN CORPUSCULAR HEMOGLOBIN 35.2 pg (27.0-31.0); MEAN CORPUSCULAR HGB CONC 34.3 g/dL (32.0-36.0); MEAN CORPUSCULAR VOLUME 102.6 fL (80.0-94.0); MEAN PLATELET VOLUME 10.6 fL (7.4-11.4); MONOCYTES # (AUTO) 1.5 10^3/uL (0.0-1.0); MONOCYTES % (AUTO) 17.1 %; NEUTROPHILS # (AUTO) 5.7 10^3/uL (1.5-6.6); PLT - PLATELET COUNT 195 10^3/uL (130-450); RED BLOOD COUNT 3.81 10^6/uL (4.70-6.10); WHITE BLOOD COUNT 8.5 x10^3/uL (4.8-10.8)
[2020-12-11 05:54] LABS: CALCIUM 9.2 mg/dL (8.5-10.3); CREATININE 0.7 mg/dL (0.6-1.2); MAGNESIUM 2.4 mg/dL (1.7-2.8); POTASSIUM 4.4 mmol/L (3.5-5.0)
[2020-12-11] MEDS: CALCIUM CARBONATE CHEW 500 MG TABLET PO PRN (05:55)
[2020-12-11] MEDS: KETOROLAC 15 MG/ML VIAL IVP PRN (05:55)
[2020-12-11 07:49] VITALS: BP 132/90
[2020-12-11] MEDS: DOCUSATE SODIUM 250 MG CAPSULE PO SCH (08:34)
[2020-12-11] MEDS: SENNA 8.6 MG TABLET PO SCH (08:34)
[2020-12-11] MEDS: PANTOPRAZOLE 40 MG TABLET PO SCH (08:34)
[2020-12-11] MEDS: polyethylene glycoL 3350 17 GM PACKET PO SCH (08:34)
[2020-12-11] MEDS: ENOXAPARIN 40 MG/0.4 ML SYRINGE SUBQ SCH (08:34)
[2020-12-11] MEDS: SODIUM CHLORIDE FLUSH 0.9% 10 ML SYRINGE IVP SCH (08:35)
[2020-12-11] MEDS: IPRATROPIUM/ALBUTEROL 3 ML NEB INH PRN (08:40)
[2020-12-11] MEDS: BUDESONIDE 0.5 MG/2 ML NEB INH SCH (08:40)
[2020-12-11] MEDS: FORMOTEROL FUMARATE NEB 20 MCG/2 ML INH SCH (08:40)
[2020-12-11] MEDS ORDERED: MAG HYDROX/AL HYDROX/SIMETH 30 ML UDC PO PRN (08:43)
--- NOTE | 2020-12-11 08:54 | DISCHARGE SUMMARY ---
Discharge Summary Admit Date: 12/06/20 Discharge Date: 12/11/20 Discharging Provider: Janet Venegas Condition at Discharge: Stable Discharge Disposition: 01 Home, Self Care - DIAGNOSES Admission Diagnoses: Small bowel obstruction Metastatic colon cancer to liver History of biliary duct stent placement COPD Severe protein calorie malnutrition Discharge Diagnoses with Status of Each Condition: Small bowel obstruction: Resolved Metastatic colon cancer to liver: Chronic to follow up with oncologist History of biliary duct stent placement: COPD: Chronic. Not in exacerbation Severe protein calorie malnutrition: Continue wqith Ensure supplement added to diet - HPI History of Present Illness: This is a pleasant 70-year-old male with a past medical history significant for stage IV colon cancer with metastasis to the liver and lung, COPD, history of biliary obstruction requiring stenting who presents today complaining of abdominal pain. He states his symptoms began this morning when he woke up and he had significant abdominal pain over the left side of his abdomen. It was about an 8 out of 10. He had no associated nausea or vomiting. He was able to eat a bowl of cereal for breakfast without any vomiting. He did not have lunch or dinner due to lack of appetite. He did have a bowel movement at around 3 PM but since then has not had any further bowel movements and is not passing gas. Due to his ongoing abdominal pain, he decided to come to the emergency department. He states that he has had a 40 pound weight loss over the past 3 months secondary to poor oral intake. He is continuing to receive chemotherapy for his metastatic colon cancer. He has had biliary stenting in the past with the most recent being in February 2020. He denies any right upper quadrant abdominal pain at this time. He reports no dysuria, urgency, hematuria. He currently feels much improved after receiving pain medications in the emergency department. In the emergency department, he underwent a CT of the abdomen and pelvis which was concerning for partial small bowel obstruction. Given this finding, medicine was consulted for admission. I did discuss goals of care with the patient and he would like to be a full code. - HOSPITAL COURSE Hospital Course: Patient was placed on IV hydration with normal saline, pain management was with Dilaudid, Oxycodone, Toradol and Tylenol as needed. Patient was seen by general surgery and deemed not in need of surgical intervention at this time. Over the course of his 4-day hospital stay He was able to have flatus. His diet was advanced to regular which he tolerated well. On day 4 of his hospital stay he had a bowel movement after administration of MiraLAX, senna, docusate, glycerin suppositories and magnesium citrate. He was discharged home in stable condition. Was advised to return to the ED for reevaluation if his symptoms return.He may follow-up with his oncologist and or primary care physician as needed. - ALLERGIES Allergies/Adverse Reactions: Allergies Allergy/AdvReac Type Severity Reaction Status Date / Time nitrous oxide [Nitrous Oxide] AdvReac Hallucinati Verified 12/06/20 19:37 ons tramadol AdvReac Nausea Verified 12/06/20 19:37 - MEDICATIONS Home Medications: Ambulatory Orders Medication Instructions Recorded Confirmed Citalopram [CeleXA] 30 mg PO DAILY 10/18/17 12/07/20 Fluticasone/Salmeterol [Advair 1 inh INH BID 10/18/17 12/07/20 250-50 Diskus] Aspirin [Adult Aspirin Regimen] 81 mg PO DAILY 10/21/19 12/07/20 Cyanocobalamin (Vitamin B-12) 1,000 mcg PO DAILY 10/21/19 12/07/20 [Vitamin B-12] Ondansetron [Ondansetron Odt] 8 mg PO BID PRN 11/07/19 12/07/20 Mouthwash Compounding Base 227 5 ml ORAL QID MDD 5-6 times 02/12/20 12/07/20 [Mouthwash-Om] amLODIPine [Norvasc] 10 mg PO DAILY 04/29/20 12/07/20 Umeclidinium [place] [Incruse 1 inh INH DAILY 08/13/20 12/07/20 Ellipta] oxyCODONE/ACET 5/325 [Percocet 5 1 each PO Q6H PRN 08/13/20 12/07/20 mg/325 mg] LORazepam [Ativan] 1 - 2 tab PO HS PRN #60 tablet MDD 10/22/20 12/07/20 1mg Zolpidem Tartrate [Ambien] 10 mg PO QPM PRN #30 tablet 10/22/20 12/07/20 Metoclopramide [Reglan] 10 mg PO Q6H PRN 11/07/20 12/07/20 Omeprazole 40 mg PO DAILY #90 cap 12/03/20 12/07/20 Ipratropium/Albuterol [Combivent 1 puffs INH QID PRN 12/07/20 12/07/20 Respimat] Sennosides [Senna] 8.6 mg PO BID 12/07/20 12/07/20 dexAMETHasone [Decadron] 8 mg PO DAILY 12/07/20 12/07/20 - PHYSICAL EXAM AT DISCHARGE General Appearance: positive: No acute distress, Alert, Other (Frail/ cachexic) Eyes Bilateral: positive: PERRL, EOMI ENT: positive: No signs of dehydration Neck: positive: No JVD, Trachea midline Respiratory: positive: Chest non-tender, No respiratory distress, Breath sounds nml. negative: Wheezes, Rales, Rhonchi Cardiovascular: positive: Regular rate & rhythm, No murmur Abdomen: positive: Non-tender, No organomegaly, Nml bowel sounds, No distention. negative: Guarding, Rebound Back: positive: Nml inspection Skin: positive: Color nml, No rash, Warm, Dry Extremities: positive: Non-tender, Full ROM, Nml appearance, No pedal edema Neurologic/Psychiatric: positive: Oriented x3, Mood/affect nml - LABS Result Diagrams: 12/11/20 05:37 12/11/20 05:37 - TIME SPENT Time Spent in Discharge (Minutes): 25
--- NOTE | 2020-12-11 08:58 | Discharge Plan ---
Discharge Plan Problem Reviewed?: Yes Disposition: 01 Home, Self Care Condition: Stable Diet: Regular Activity Restrictions: Activity as Tolerated Health Concerns: You were admitted on 12/06/20 with abdominal pain. Work-up in the ED included a CT of the abdomen pelvis which was concerning for partial small bowel obstruction. You were treated with IV hydration pain management and Zofran for nausea. You were observed over a 5-day. During which you were able to pass gas and subsequently have a bowel movement after being given MiraLAX, senna, glycerin suppositories and magnesium citrate. You were able to tolerate your meals well with no pain. Your pain subsided/resolved over the course of your hospital stay. You are being discharged home in stable condition. Should your symptoms return, do not hesitate to return to the emergency department for reevaluation. The above plan was discussed with you. You expressed understanding and are in agreement. You may follow-up with your primary care physician and or oncologist as needed. Plan of Treatment: You were admitted on 12/06/20 with abdominal pain. Work-up in the ED included a CT of the abdomen pelvis which was concerning for partial small bowel obstruction. You were treated with IV hydration pain management and Zofran for nausea. You were observed over a 5-day. During which you were able to pass gas and subsequently have a bowel movement after being given MiraLAX, senna, glycerin suppositories and magnesium citrate. You were able to tolerate your meals well with no pain. Your pain subsided/resolved over the course of your hospital stay. You are being discharged home in stable condition. Should your symptoms return, do not hesitate to return to the emergency department for reevaluation. The above plan was discussed with you. You expressed understanding and are in agreement. You may follow-up with your primary care physician and or oncologist as needed. Care Goals: You were admitted on 12/06/20 with abdominal pain. Work-up in the ED included a CT of the abdomen pelvis which was concerning for partial small bowel obstruction. You were treated with IV hydration pain management and Zofran for nausea. You were observed over a 5-day. During which you were able to pass gas and subsequently have a bowel movement after being given MiraLAX, senna, glycerin suppositories and magnesium citrate. You were able to tolerate your meals well with no pain. Your pain subsided/resolved over the course of your hospital stay. You are being discharged home in stable condition. Should your symptoms return, do not hesitate to return to the emergency department for reevaluation. The above plan was discussed with you. You expressed understanding and are in agreement. You may follow-up with your primary care physician and or oncologist as needed. Assessment: You were admitted on 12/06/20 with abdominal pain. Work-up in the ED included a CT of the abdomen pelvis which was concerning for partial small bowel obstruction. You were treated with IV hydration pain management and Zofran for nausea. You were observed over a 5-day. During which you were able to pass gas and subsequently have a bowel movement after being given MiraLAX, senna, glycerin suppositories and magnesium citrate. You were able to tolerate your meals well with no pain. Your pain subsided/resolved over the course of your hospital stay. You are being discharged home in stable condition. Should your symptoms return, do not hesitate to return to the emergency department for reevaluation. The above plan was discussed with you. You expressed understanding and are in agreement. You may follow-up with your primary care physician and or oncologist as needed. No Smoking: If you smoke, Please STOP! Call for help.
== END 2020-12-11 11:17 | disposition home or self-care (01) | DRG 388 ==
LOC: ED 19:20 → MS2 23:01 → UNDOADMOB 23:01 → OBSVTOIN 12-07 16:23
PROVIDERS: ADMIT Internal Medicine; ATTEND Internal Medicine
DX: K56.609 Unspecified intestinal obstruction, unspecified as to partial versus complete obstruction (principal); Z20.822 Contact with and (suspected) exposure to COVID-19; K56.600 Partial intestinal obstruction, unspecified as to cause; E43 Unspecified severe protein-calorie malnutrition; C18.9 Malignant neoplasm of colon, unspecified; C78.7 Secondary malignant neoplasm of liver and intrahepatic bile duct; C78.00 Secondary malignant neoplasm of unspecified lung; Z68.1 Body mass index [BMI] 19.9 or less, adult; Z96.89 Presence of other specified functional implants; J44.9 Chronic obstructive pulmonary disease, unspecified; I10 Essential (primary) hypertension; Z87.891 Personal history of nicotine dependence; Z79.899 Other long term (current) drug therapy
CPT/HCPCS: 36415; 74018; 74177; 80048; 80053; 81003; 83690; 83735; 85025; 87631; 94640; 96372; 96374; 96375; 96376; 99284; 99285; A9270; G0378; J1170; J1650; J7120; J7626; Q9967; 0202U; 81001; 87086

== ENCOUNTER 2020-12-23 09:03 | Outpatient (CLI) | payer MEDICARE, MEDICAID ==
--- NOTE | 2020-12-23 12:19 | CONSULTATION NOTE ---
Palliative Care Follow Up - Referral Referring Provider: Dr. 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 He continues have significant weight loss, has lost another 14 pounds since I last saw him in October. With his last oncology visit in consult with Ni Hernandes, was started on dexamethasone 4 mg daily, he got an initial boost from this. He appears quite cachectic, admits to escalating anxiety, and understands our concern. He unfortunately had a hospitalization for small bowel obstruction. He had increased abdominal pain on his left side, no associated nausea or vomiting, and was hospitalized. It did resolve with IV hydration, pain management, and did not need surgical intervention. They were able to get his bowels moving, with MiraLAX senna and Dukas as well as glycerin suppositories. Patient reports he continues to have bowel movements 2-3 times a day, continues to struggle with early satiety and bloating, complains of significantly dry mouth, on examination he does have oral candidiasis. He has many challenges in meeting his caloric needs, including his current living situation, financial stressors, and short-term memory issues as well as his symptoms. Patient is always been in the context of his goals wanting to push forward, though he does admit to the seriousness of his illness, and understands our concerns regarding his ongoing weight loss and decline. We had talked about further clarifying his medications, unclear about his adherence, he does get easily confused about his meds, he forgot to bring them in unfortunately. He has declined a home visit because he does not want me to come to his place as he feels like he would be embarrassed. Past Medical History: COPD, hypertension, original diagnosis stage II sigmoid colon cancer 2010, stage IV colon cancer to the lung 09/2014, left lower lobe wedge resection of mets 02/2015, liver resection/11/2018 patient has been on multiple chemotherapies. Also has metal stent placement last replaced 03/12/2020. Social History - Living Situation Living arrangement: At home Living Situation: Alone Support System: Patient continues to struggle in the context of trying to find and secure housing. 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 He does have a "girl friend" that provides him support, his biggest support that he provides is for Bobby whom he has been involved with for many years, a special needs young man, now into his teens who accompanies him today. Medications/Allergies - Medications Home Medications: Ambulatory Orders Medication Instructions Recorded Confirmed Citalopram [CeleXA] 30 mg PO DAILY 10/18/17 12/24/20 Fluticasone/Salmeterol [Advair 1 inh INH BID 10/18/17 12/24/20 250-50 Diskus] Aspirin [Adult Aspirin Regimen] 81 mg PO DAILY 10/21/19 12/24/20 Cyanocobalamin (Vitamin B-12) 1,000 mcg PO DAILY 10/21/19 12/24/20 [Vitamin B-12] Ondansetron [Ondansetron Odt] 8 mg PO BID PRN 11/07/19 12/24/20 Mouthwash Compounding Base 227 5 ml ORAL QID MDD 5-6 times 02/12/20 12/24/20 [Mouthwash-Om] amLODIPine [Norvasc] 10 mg PO DAILY 04/29/20 12/24/20 Umeclidinium [place] [Incruse 1 inh INH DAILY 08/13/20 12/24/20 Ellipta] oxyCODONE/ACET 5/325 [Percocet 5 1 each PO Q6H PRN 08/13/20 12/24/20 mg/325 mg] LORazepam [Ativan] 1 - 2 tab PO HS PRN #60 tablet MDD 10/22/20 12/24/20 1mg Zolpidem Tartrate [Ambien] 10 mg PO QPM PRN #30 tablet 10/22/20 12/24/20 Metoclopramide [Reglan] 10 mg PO Q6H PRN 11/07/20 12/24/20 Omeprazole 40 mg PO DAILY #90 cap 12/03/20 12/24/20 Ipratropium/Albuterol [Combivent 1 puffs INH QID PRN 12/07/20 12/24/20 Respimat] Sennosides [Senna] 8.6 mg PO BID 12/07/20 12/24/20 dexAMETHasone [Decadron] 4 mg PO DAILY 12/07/20 12/24/20 Nystatin [Mycostatin] 5 ml PO QID MDD 10 days 12/24/20 12/24/20 dronabinoL [Marinol] 5 mg PO BID 12/24/20 12/24/20 - Allergies Allergies/Adverse Reactions: Allergies Allergy/AdvReac Type Severity Reaction Status Date / Time nitrous oxide [Nitrous Oxide] AdvReac Hallucinati Verified 12/23/20 10:07 ons tramadol AdvReac Nausea Verified 12/23/20 10:07 Review of Systems - Constitutional Constitutional: reports: Fatigue (persistent), Weakness, Weight loss (114 (last 128 11/05)). denies: Fever, Chills - Eyes Eyes: reports: Vision loss - Ears, Nose & Throat Ears, Nose & Throat: reports: Hearing loss, Mouth lesions, Dental decay, Dry mouth - Cardiovascular Cardiovascular: reports: Lightheadedness, Decr. exercise tolerance. denies: Edema - Respiratory Respiratory: reports: Cough (no productive), SOB at rest, SOB with exertion. denies: Hemoptysis - Gastrointestinal Gastrointestinal: reports: Abdominal pain (right upper quadrant; attributes to stent; using 2 percocet at bedtime intermittently; marijuana), Constipation (reports worsening constipation;), Bloating, Poor appetite, Early satiety. denies: Nausea, Reflux/heartburn - Musculoskeletal Musculoskeletal: reports: Back pain, Muscle aches, Stiffness, Muscle weakness - Integumentary Integumentary: reports: Dryness, Hair changes (thinning) - Neurological Neurological: reports: General weakness, Numbness, Memory problems. denies: Headache - Psychiatric Psychiatric: reports: Anxiety - Hematologic/Lymphatic Hematologic/Lymph: reports: Anemia (13.6) - All Other Systems All Other Systems: reports: Reviewed and negative Physical Exam - Vital Signs Temperature: 36.8 C Pulse Rate: 64 Respiratory Rate: 20 O2 Saturation: 98 (ra @ rest) Blood Pressure: 103/64 - Physical Exam General Appearance: positive: No acute distress, Alert Eyes Bilateral: positive: Normal inspection, No scleral icterus ENT: positive: No signs of dehydration, Oral lesions (candidiasis), Other (poor oral hygiene/decay;) Neck: positive: Trachea midline Cardiovascular: positive: Regular rate & rhythm Respiratory: positive: Diminished throughout, Other (dull in LLL). negative: Wheezes Abdomen: positive: Soft, Tenderness (midline distal hernia tender; easily reduces). negative: Mass Skin: positive: Pallor, Dryness Extremities: positive: No pedal edema Neurologic/Psychiatric: positive: Oriented x3, Flat affect Palliative Care - POLST Patient has POLST: No POLST Status: Full Code Pain: Pain unchanged, Location (right upper quadrant; waxes and wanes; tries not to take oxycodone), Severity (4/10) Tiredness/Fatigue: Mild (1-3) Drowsiness/Sedation: Mild (1-3) Nausea: None Anorexia: Severe (7-10) Dyspnea: Moderate (4-6) Depression: None Anxiety: None Feelings of wellbeing/Perceived Quality of Life: Worsening Sleep: Variable sleep pattern Constipation: Yes, Intermittent constipation Performance Status: Patient does have decreased activity tolerance, with loss of muscle mass this weaker and finds himself fatigued and sleeping more. He continues to try and work, spend as much time as he can with Bobby knowing his time is limited. He is independent in his ADLs. - Palliative Care Discussion: Unfortunately given the seriousness of his illness and continued decline, with his CEA almost doubled from Lida to 62.7, unable to have a "Agustín" discussion. We did talk about that if he were to continue lose weight earlier does not stabilize at 114 pounds, he is not going to be able to tolerate treatment, and the burden would be more than the benefit. He is always wanted to stay positive, but does understand the seriousness of his illness, and is running out of options. He has been keeping his brother who is his DPOA up-to-date, will share the fact that things are getting more serious. Patient has have few friends in the community, but not have anyone who could be primary caregiver. Patient did bring his medications in, worried about patient's adherence. Patient very cognizant of his limited time, wants to spend as much time as possible with Bobby, and does not want to be altered. Is limiting his use of oxycodone, lorazepam, and is concerned about the Marinol and use of CBD/THC. Results - Lab Results Lab results reviewed: Yes Impression and Recommendations - Palliative Care Impression: This is a 70-year-old gentleman with metastatic colon cancer to liver, nodes, lungs, oncology will be changing his therapy and modifying given patient's more fragile state. Patient continues with weight loss, complex social situation, and now presents with oral candidiasis. Palliative care continue to meet with patient to provide support and anticipatory guidance as patient allows. Recommendations/Counseling Done: 1. Cachexia, malignant. Patient continues to lose weight, has early satiety, now presents with oral candidiasis, and anorexia. He has trialed the dexamethasone at 4 mg, with some improvement but continues with multiple barriers. He has been instructed multiple times to increase his Ensure/boost from twice a day up to 3-4 times a day, continues to have difficulty with this with his early satiety. He is trying to push fluids, instructed to use calorie laden fluids given his continued weight loss. Oncology has suggested Marinol 5 mg twice daily, patient does have Rx, but is concerned about altered state as he is responsible for his friend Bobby. 2. Oral candidiasis. Patient has struggled with remittent mucositis, dental decay, and poor oral hygiene. He has used the Magic mouthwash for discomfort, has an old Rx for nystatin. Patient was instructed to initiate nystatin 5 mils 4 times daily swish and swallow, reviewed again as well as to take for 10 days. 3. Anxiety. Patient continues low-grade and intermittent anxiety, this is multifactorial. He has multiple complex social issues as well as feels responsible and needing accommodate his visitations with Bobby. At this point time he is still able to stay in his current living situation, but is trying to find a place to "land". He is also concerned with his progressing symptoms and inability to gain weight. 4. Metastatic colon cancer. Patient's treatment plan is to be modified, discussed if patient continues to lose weight the burden of treatment may outweigh the benefit. Patient's goal has always been to continue treatment, but this is becoming more problematic. 5. Small bowel obstruction. Patient was hospitalized end of November for small bowel obstruction, reports has been having regular bowel movements, intermittent diarrhea. Denies any recurrent symptoms of this, is continue to monitor. 6. Advanced care planning. Patient does have his DPOA in place which is his brother Andrew Liriano [phone]. We did discuss the need to bring him up-to-date on the seriousness of his condition, also tried to provide support and encouragement to Bobby who is accompanying Moreno, it is visibly obvious he is worried and concerned. Patient's goals do remain to focus on quality of life and hoping to live as long as possible to be able to support his friend Bobby. I am concerned for the bigger picture plan as he will need caregiving at some point, and housing may be problematic. 45 minutes review of oncology notes, labs, coordination of care with oncology team, [id number] with patient for counseling for symptom management and coordination of care as well as anticipatory guidance
== END 2020-12-23 09:04 | disposition home or self-care (01) ==
LOC: PC 09:03
PROVIDERS: ATTEND Nurse Practitioner Adult Health
DX: Z51.5 Encounter for palliative care (principal); R64 Cachexia; R63.0 Anorexia; R68.81 Early satiety; B37.0 Candidal stomatitis; F41.9 Anxiety disorder, unspecified; C18.7 Malignant neoplasm of sigmoid colon; C78.02 Secondary malignant neoplasm of left lung; C78.7 Secondary malignant neoplasm of liver and intrahepatic bile duct; C77.9 Secondary and unspecified malignant neoplasm of lymph node, unspecified
CPT/HCPCS: 99215

== ENCOUNTER 2021-01-06 09:15 | Outpatient (CLI) | payer MEDICARE, MEDICAID ==
--- NOTE | 2021-01-06 15:45 | CONSULTATION NOTE ---
Palliative Care Follow Up - Referral Referring Provider: Dr. 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 He continues with significant weight loss, another 4 pounds since I saw him just on 12/23. He appears quite cachectic, is very thin, is feeling quite weak and needed a wheelchair to leave. He did receive some fluids today, has severe oral candidiasis, denies any increase in abdominal pain, but is quite tearful as we did discuss the implications of his current decline. He is currently unable to receive treatment, given his ongoing weight loss, dehydration, and thrombocytopenia. He will return next week for further evaluation and conversation given his ongoing decline versus treatment. Patient in context of his goals is always wanted to push forward, we did though have a serious conversation today regarding that sometimes treatment can hasten decline, particularly given his fragile status. This was an opportunity to be able to open the door and talk about end-of-life planning. 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 I did bring up my concern regarding needing a plan for his end-of-life, he would like to at "home". He does have a good friend Shantelle, who has been quite worried about him and is related to his younger friend Bobby. He still spends quite a bit of time with Bobby trying to continue to mentor him recognizing he is going to have to say goodbye soon.He does have a brother, who is his DPOA, and has been keeping him updated with his current decl ine. Medications/Allergies - Medications Home Medications: Ambulatory Orders Medication Instructions Recorded Confirmed Citalopram [CeleXA] 30 mg PO DAILY 10/18/17 01/06/21 Fluticasone/Salmeterol [Advair 1 inh INH BID 10/18/17 01/06/21 250-50 Diskus] Aspirin [Adult Aspirin Regimen] 81 mg PO DAILY 10/21/19 01/06/21 Cyanocobalamin (Vitamin B-12) 1,000 mcg PO DAILY 10/21/19 01/06/21 [Vitamin B-12] Ondansetron [Ondansetron Odt] 8 mg PO BID PRN 11/07/19 01/06/21 Umeclidinium [place] [Incruse 1 inh INH DAILY 08/13/20 01/06/21 Ellipta] oxyCODONE/ACET 5/325 [Percocet 5 1 each PO Q6H PRN 08/13/20 01/06/21 mg/325 mg] Zolpidem Tartrate [Ambien] 10 mg PO QPM PRN #30 tablet 10/22/20 01/06/21 Omeprazole 40 mg PO DAILY #90 cap 12/03/20 01/06/21 Ipratropium/Albuterol [Combivent 1 puffs INH QID PRN 12/07/20 01/06/21 Respimat] Sennosides [Senna] 8.6 mg PO BID 12/07/20 01/06/21 Nystatin [Mycostatin] 5 ml PO QID PRN 12/24/20 01/06/21 dronabinoL [Marinol] 5 mg PO BID 12/24/20 01/06/21 Fluconazole [Diflucan] 100 mg PO DAILY #8 tablet 01/06/21 01/06/21 - Allergies Allergies/Adverse Reactions: Allergies Allergy/AdvReac Type Severity Reaction Status Date / Time nitrous oxide [Nitrous Oxide] AdvReac Hallucinati Verified 01/06/21 09:32 ons tramadol AdvReac Nausea Verified 01/06/21 09:32 Review of Systems - Constitutional Constitutional: reports: Fatigue (worsening), Weakness (very weak), Poor appetite, Night sweats, Weight loss (110 today 114 7/12 (last 128 11/05)). denies: Fever, Chills - Eyes Eyes: reports: Vision loss - Ears, Nose & Throat Ears, Nose & Throat: reports: Hearing loss, Mouth lesions, Dental decay, Dry mouth - Cardiovascular Cardiovascular: reports: Lightheadedness, Decr. exercise tolerance. denies: Edema - Respiratory Respiratory: reports: Cough (no productive), SOB at rest, SOB with exertion. denies: Hemoptysis - Gastrointestinal Gastrointestinal: reports: Abdominal pain, Constipation (controlled with senna; decreased use of oxycodone), Nausea, Reflux/heartburn, Poor appetite, Early satiety - Musculoskeletal Musculoskeletal: reports: Back pain, Muscle aches, Stiffness, Muscle weakness - Integumentary Integumentary: reports: Dryness, Hair changes (thinning) - Neurological Neurological: reports: General weakness, Dizziness, Numbness, Memory problems. denies: Headache - Psychiatric Psychiatric: reports: Depression, Anxiety - Hematologic/Lymphatic Hematologic/Lymph: reports: Anemia - All Other Systems All Other Systems: reports: Reviewed and negative Physical Exam - Vital Signs Temperature: 36.4 C Pulse Rate: 80 Respiratory Rate: 20 Blood Pressure: 96/65 - Physical Exam General Appearance: positive: Mild distress, Anxious, Cachetic Eyes Bilateral: positive: No scleral icterus, Other (dark circles) ENT: positive: Oral lesions (thick white coating on tongue), Dry mucous membranes, Other (poor dentition) Neck: positive: Trachea midline Cardiovascular: positive: Tachycardia Respiratory: positive: No respiratory distress Abdomen: positive: Soft, Tenderness Skin: positive: Pallor, Dryness Extremities: positive: No pedal edema Neurologic/Psychiatric: positive: Oriented x3, Weakness, Depressed mood/affect Palliative Care - POLST Patient has POLST: No POLST Status: Full Code Pain: Pain unchanged, Location (lower and ruq tenderness; not wanting to take pain pills related to constipation; does not feel it is severe enough) Tiredness/Fatigue: Severe (7-10) Drowsiness/Sedation: Moderate (4-6) (reports still working) Nausea: Mild (1-3) Anorexia: Severe (7-10), Weight loss Dyspnea: Moderate (4-6) Depression: Moderate (4-6) Anxiety: Severe (7-10) Feelings of wellbeing/Perceived Quality of Life: Poor, Worsening Sleep: Variable sleep pattern Constipation: Yes, Intermittent constipation Performance Status: Patient is feeling significantly weaker, having lightheadedness and difficulty walking. Reports he has had functional decline over the last several weeks, though continues to drive and reports he is working. It does appear he is sleeping more, and is more sedentary. Is currently managing his ADLs, though looks quite disheveled, and frail today. - Palliative Care Discussion: Discussed with patient my concern about his ongoing decline, his weight loss, and frailty. We did discuss in the context of the seriousness of his illness, that we needed to start planning regarding his end-of-life. His biggest fear and concern is for his young friend Bobby, reports he has tried to prepare him at some level as far as using phrases like when I , when I am gone, and I suspect it is quite obvious that he is declining. He reports his friend Shantelle who is good support for him, will be picking up his medications, but has been worried about him as well. Requested given his current situation, that he have a conversation with her. He does not want to in the hospital, but discussed how he would "at home", he did take care of his mother and would like to have a peaceful passing. Though it was somewhat drawn out, as his father had fairly suddenly when he was a young man of 27. His brother is his DPOA, though he is quite a bit older and he himself has had a stroke, does not sound like he would be a person who would be able to support him with caregiving. He is always wanted to push through, discussed that often at this point treatment can do more harm than good, his priorities are still to be spending as much time with his young friend Bobby is possible he does not have any housing plans moving forward, he may be a candidate when he is imminently transitioning to consider [employer]. He is quite tearful and does recognize the seriousness of his illness, acknowledges the [facility] and all the nurses have been his family, has found this very difficult but also a healing place. Results - Lab Results Lab results reviewed: Yes Impression and Recommendations - Palliative Care Impression: This is a 70-year-old gentleman with recurrent stage IV sigmoid colon cancer to liver, nodes, and lung, currently therapy remains on hold given patient's failure to thrive. Patient continues with weight loss, functional decline, presents with severe oral candidiasis and worsening fatigue. Palliative care addressing goals of care, anticipatory guidance, and introduction of hospice. Recommendations/Counseling Done: 1. Oral candidiasis. In review of patient's medications, patient had used nystatin but had rinsed it down quickly after use, though written instructions do have he is to wait 15 minutes before taking any fluids or food. He did see Oncology REN[facility], and Rx for diflucan received, Reinforced patient's need to pick this up as soon as possible and start. 2. Fatigue. This is multifactorial, patient is dehydrated today, with symptomatic hypotension and dizziness. He is receiving fluids, is having difficulty both with calories and fluids. He does describe functional decline, remains at high risk for further sequela. 3. Medication adherence. Patient brought and multiple medications, reviewed list and simplified as well as corrected current list he is taking. Patient currently is not taking oxycodone/acetaminophen 5/325 mg though has available, is fearful of constipation. Reports and reviews medications currently as well as indications, old medications and instructions given for disposal. 4. Hypotension. Patient has been instructed to hold amlodipine, push fluids, obtain Gatorade and continue with increasing number of boost per day. 5. Metastatic stage IV sigmoid colon cancer to liver, nodes, lung,. Patient currently does not present with ability to tolerate treatment with FTT, has needed modifications, continues with toxicities and concern for further decline. Counseling provided regarding introduction of hospice, need for end of life plan, encouraged to talk with family and friend Shantelle regarding options for support. Encouraged him to have Shantelle reach out to me, offered family meeting, he will let me know. 60 minutes with review of charts, consult with oncology, review of labs and scans, [id number] with patient for exam, counseling regarding symptom management, advanced care planning and anticipatory guidance
== END 2021-01-06 09:16 | disposition home or self-care (01) ==
LOC: PC 09:15
PROVIDERS: ATTEND Nurse Practitioner Adult Health
DX: Z51.5 Encounter for palliative care (principal); E86.0 Dehydration; R53.83 Other fatigue; B37.0 Candidal stomatitis; R53.1 Weakness; I95.9 Hypotension, unspecified; R63.0 Anorexia; R63.4 Abnormal weight loss; R62.7 Adult failure to thrive; G89.3 Neoplasm related pain (acute) (chronic); C18.7 Malignant neoplasm of sigmoid colon; C78.7 Secondary malignant neoplasm of liver and intrahepatic bile duct; C77.9 Secondary and unspecified malignant neoplasm of lymph node, unspecified; C78.02 Secondary malignant neoplasm of left lung; Z79.899 Other long term (current) drug therapy
CPT/HCPCS: 99215

== ENCOUNTER 2021-01-10 12:33 | Emergency (ER) | payer MEDICARE, MEDICAID ==
[2021-01-10] MEDS ORDERED: SODIUM CHLORIDE 0.9% 1,000 ML IV STA ×2 (13:02→13:03)
--- NOTE | 2021-01-10 13:05 | ED Physician Documentation ---
History of Present Illness - Stated complaint Stated Complaint: CONSTIPATION - Chief complaint Chief Complaint: Abd Pain - History obtained from History obtained from: Patient - History of Present Illness Timing: Today Pain level max: 9 Pain level now: 9 - Additonal information Additional information: 70-year-old male with a history of stage IV adenocarcinoma of the colon presents to the emergency department with constipation for the past 2 days. States has diffuse abdominal pain. Was admitted about a month and a half ago for a bowel obstruction. No fevers. No chills. No vomiting. Nothing makes it better or worse. Review of Systems Ten Systems: 10 systems reviewed and negative Constitutional: denies: Fever, Chills Nose: denies: Rhinorrhea / runny nose, Congestion GI: reports: Abdominal Pain (Diffuse, crampy), Nausea, Constipation. denies: Vomiting, Diarrhea, Hematemesis, Bloody / black stool Skin: denies: Rash Musculoskeletal: denies: Neck pain, Back pain Neurologic: denies: Headache PD PAST MEDICAL HISTORY - Past Medical History Cardiovascular: Hypertension Respiratory: COPD, Shortness of breath Neuro: None Endocrine/Autoimmune: None GI: Ulcers, Other : Kidney stones HEENT: Chronic sinusitis Psych: Depression, Anxiety, Panic attacks Musculoskeletal: Osteoarthritis, Fatigue, Other Derm: None - Past Surgical History Past Surgical History: Yes General: Bowel surgery, Liver surgery, Colonoscopy, Other Ortho: Other Cardiovascular: Coronary stent, Other HEENT: Tonsil/Adenoidectomy - Present Medications Home Medications: Ambulatory Orders Medication Instructions Recorded Confirmed Citalopram [CeleXA] 30 mg PO DAILY 10/18/17 01/06/21 Fluticasone/Salmeterol [Advair 1 inh INH BID 10/18/17 01/06/21 250-50 Diskus] Aspirin [Adult Aspirin Regimen] 81 mg PO DAILY 10/21/19 01/06/21 Cyanocobalamin (Vitamin B-12) 1,000 mcg PO DAILY 10/21/19 01/06/21 [Vitamin B-12] Ondansetron [Ondansetron Odt] 8 mg PO BID PRN 11/07/19 01/06/21 Umeclidinium [place] [Incruse 1 inh INH DAILY 08/13/20 01/06/21 Ellipta] oxyCODONE/ACET 5/325 [Percocet 5 1 each PO Q6H PRN 08/13/20 01/06/21 mg/325 mg] Zolpidem Tartrate [Ambien] 10 mg PO QPM PRN #30 tablet 10/22/20 01/06/21 Omeprazole 40 mg PO DAILY #90 cap 12/03/20 01/06/21 Ipratropium/Albuterol [Combivent 1 puffs INH QID PRN 12/07/20 01/06/21 Respimat] Sennosides [Senna] 8.6 mg PO BID 12/07/20 01/06/21 Nystatin [Mycostatin] 5 ml PO QID PRN 12/24/20 01/06/21 dronabinoL [Marinol] 5 mg PO BID 12/24/20 01/06/21 Fluconazole [Diflucan] 100 mg PO DAILY #8 tablet 01/06/21 01/06/21 Magnesium Citrate 296 ml PO ONCE PRN #296 ml 01/10/21 polyethylene glycoL 3350 [Miralax] 17 gm PO DAILY PRN #1 bottle 01/10/21 - Allergies Allergies/Adverse Reactions: Allergies Allergy/AdvReac Type Severity Reaction Status Date / Time nitrous oxide [Nitrous Oxide] AdvReac Hallucinati Verified 01/10/21 12:46 ons tramadol AdvReac Nausea Verified 01/10/21 12:46 - Social History Does the pt smoke?: No Smoking Status: Never smoker Does the pt drink ETOH?: Yes Does the pt have substance abuse?: Yes - Immunizations Immunizations are current?: No Immunizations: TDAP >10years/unknown - POLST Patient has POLST: No POLST Status: Full Code PD ED PE NORMAL - Vitals Vital signs reviewed: Yes - General General: Alert and oriented X 3, No acute distress - HEENT HEENT: Moist mucous membranes - Neck Neck: Supple, no meningeal sign - Cardiac Cardiac: RRR, Strong equal pulses - Respiratory Respiratory: No respiratory distress, Clear bilaterally - Abdomen Abdomen: Soft, Non distended, Other (Mild diffuse tenderness to palpation without peritoneal signs) - Back Back: No CVA TTP, No spinal TTP - Derm Derm: Warm and dry - Extremities Extremities: No edema - Neuro Neuro: Alert and oriented X 3 - Psych Psych: Normal mood, Normal affect Results - Vitals Vitals: Vital Signs - 24 hr 01/10/21 01/10/21 01/10/21 12:44 15:37 16:00 Temperature 36.2 C L 36.4 C L Heart Rate 95 69 69 Respiratory 20 12 Rate Blood Pressure 115/72 113/88 H 116/83 H O2 Saturation 96 93 01/10/21 01/10/21 16:30 17:00 Temperature Heart Rate 73 73 Respiratory 16 Rate Blood Pressure 114/83 H 127/86 H O2 Saturation 92 Oxygen O2 Source Room air - Labs Labs: Laboratory Tests 01/10/21 01/10/21 01/10/21 13:54 13:54 16:37 WBC 2.2 L RBC 3.41 L Hgb 11.8 L Hct 35.6 L MCV 104.4 H MCH 34.6 H MCHC 33.1 RDW 15.3 H Plt Count 133 MPV 10.4 Neut # (Auto) 1.3 L Lymph # (Auto) 0.4 L [place] # (Auto) 0.4 Eos # (Auto) 0.1 Baso # (Auto) 0.0 Absolute Nucleated RBC 0.00 Nucleated RBC % 0.0 Manual Slide Review Indicated Platelet Estimate NORMAL (130-450,000) Platelet Morphology NORMAL APPEARANCE RBC Morph Micro Appear NORMAL APPEARANCE Sodium 133 L Potassium 4.3 Chloride 101 Carbon Dioxide 22 Anion Gap 10.0 BUN 22 H Creatinine 0.6 Estimated GFR (MDRD) 134 Glucose 132 H Calcium 8.4 L Total Bilirubin 0.7 AST 38 ALT 39 Alkaline Phosphatase 220 H Total Protein 5.6 L Albumin 2.5 L Globulin 3.1 Albumin/Globulin Ratio 0.8 L Lipase 18 L Urine Color YELLOW Urine Clarity CLEAR Urine pH 5.5 Ur Specific [place] 1.010 Urine Protein NEGATIVE Urine Glucose (UA) NEGATIVE Urine Ketones NEGATIVE Urine Occult Blood NEGATIVE Urine Nitrite NEGATIVE Urine Bilirubin NEGATIVE Urine Urobilinogen 0.2 (NORMAL) Ur Leukocyte Esterase NEGATIVE Ur Microscopic Review NOT INDICATED Urine Culture Comments NOT INDICATED - Rads (name of study) CT abd/pelvis Radiology: Final report received, EMP read contemporaneously, See rad report PD MEDICAL DECISION MAKING - ED course Complexity details: reviewed old records, reviewed results, re-evaluated patient, considered differential, d/w patient ED course: Patient with constipation. No evidence of obstruction. Given magnesium citrate, Amitiza, mineral oil enema. Given IV fluids. We will have him continue to hydrate at home. No vomiting. No evidence of obstruction. Recommend he talk to his doctor about medication for opiate-induced constipation. Patient counseled regarding signs and symptoms for which I believe and urgent re-evaluation would be necessary. Patient with good understanding of and agreement to plan and is comfortable going home at this time This document was made in part using voice recognition software. While efforts are made to proofread this document, sound alike and grammatical errors may occur. MPRESSION: 1. Numerous pulmonary nodules have been previously documented one month ago, and these nodules have uniformly enlarged in size over time by approximately 1-2 mm in all dimensions. 2. Hepatic metastatic disease, slight interval increase from one month ago. 3. New finding of mild to moderate ascites, no sign of intestinal obstruction or perforation. 4. Mild to moderate obstipation within the abdomen and pelvis. 5. Biliary stent in place, intrahepatic biliary distention has not developed. Departure - Departure Disposition: 01 Home, Self Care Clinical Impression: Constipation Qualifiers: Constipation type: unspecified constipation type Qualified Code(s): K59.00 - Constipation, unspecified Condition: Good Instructions: ED Constipation Follow-Up: Ashley Santos ARNP [Primary Care Provider] - Within 1 week Prescriptions: Magnesium Citrate 296 ml PO ONCE PRN #296 ml PRN Reason: Constipation polyethylene glycoL 3350 [Miralax] 17 gm PO DAILY PRN #1 bottle PRN Reason: Constipation Comments: Follow-up with your doctor for further care. You may want to talk to your doctor about a medication for opiate-induced constipation. Drink plenty of fluid. Return if you worsen
[2021-01-10] MEDS ORDERED: IOPAMIDOL-300 100 ML VIAL ONE (13:38)
[2021-01-10 13:59] LABS: BASOPHILS % (AUTO) 0.5 %; EOSINOPHILS # (AUTO) 0.1 10^3/uL (0.0-0.7); EOSINOPHILS % (AUTO) 3.2 %; HCT - HEMATOCRIT 35.6 % (42.0-52.0); HGB - HEMOGLOBIN 11.8 g/dL (14.0-18.0); LYMPHOCYTES # (AUTO) 0.4 10^3/uL (1.5-3.5); LYMPHOCYTES % (AUTO) 18.1 %; MEAN CORPUSCULAR HEMOGLOBIN 34.6 pg (27.0-31.0); MEAN CORPUSCULAR HGB CONC 33.1 g/dL (32.0-36.0); MEAN CORPUSCULAR VOLUME 104.4 fL (80.0-94.0); MEAN PLATELET VOLUME 10.4 fL (7.4-11.4); MONOCYTES # (AUTO) 0.4 10^3/uL (0.0-1.0); MONOCYTES % (AUTO) 18.1 %; NEUTROPHILS # (AUTO) 1.3 10^3/uL (1.5-6.6); NEUTROPHILS % (AUTO) 59.6 %; PLT - PLATELET COUNT 133 10^3/uL (130-450); RED BLOOD COUNT 3.41 10^6/uL (4.70-6.10); RED CELL DISTRIBUTION WIDTH 15.3 % (12.0-15.0); WHITE BLOOD COUNT 2.2 x10^3/uL (4.8-10.8)
[2021-01-10 14:07] LABS: SLIDE REVIEW? Indicated
[2021-01-10] MEDS ORDERED: HYDROmorphone 1 MG/ML CARPUJECT IVP STA ×2 (14:15→16:54)
[2021-01-10 14:18] LABS: ALBUMIN 2.5 g/dL (3.2-5.5); ALBUMIN/GLOBULIN RATIO 0.8 (1.0-2.2); BILIRUBIN,TOTAL 0.7 mg/dL (0.2-1.0); CALCIUM 8.4 mg/dL (8.5-10.3); CREATININE 0.6 mg/dL (0.6-1.2); POTASSIUM 4.3 mmol/L (3.5-5.0); TOTAL PROTEIN 5.6 g/dL (6.7-8.2)
[2021-01-10 14:26] LABS: PLATELET ESTIMATE, MANUAL NORMAL (130-450,000) (NORMAL); PLATELET MORPHOLOGY NORMAL APPEARANCE (NORMAL); RBC MORPHOLOGY (MULTIPLE) NORMAL APPEARANCE (NORMAL)
--- NOTE | 2021-01-10 15:35 | CT Report ---
PROCEDURE: Abdomen/Pelvis W INDICATIONS: Abdominal pain, acute, nonlocalized CONTRAST: IV CONTRAST: Isovue 300 ml: 100 PO CONTRAST: *NO PO CONTRAST TECHNIQUE: After the administration of contrast, 5 mm thick sections acquired from the diaphragms to the sym physis. 5 mm thick coronal and sagittal reformats were acquired. For radiation dose reduction, the following was used: automated exposure control, adjustment of mA and/or kV according to patient size . COMPARISON: Abdomen/pelvis CT 12/06/2020 reviewed.. FINDINGS: Image quality: Excellent. ABDOMEN: Lung bases: Lung bases are abnormal, having contained multiple pulmonary nodules, but these nodules have enlarged in size by approximately 1-2 mm each dimension. Heart size is normal. Solid organs: Liver and spleen are normal in size and unchanged in enhancement, with scattered solid hepatic nodules consistent with metastatic disease again seen, having slightly enlarged in size. A p reviously present biliary stent crossing into the intrahepatic bile ducts centrally is again noted, a nd postsurgical changes of prior left hepatic lobe resection are again noted. Gallbladder has been r esected Biliary system is non dilated. Pancreas enhances normally. No adrenal nodules. Kidneys de monstrate normal size and enhancement, without hydronephrosis. Peritoneum and bowel: Bowel loops demonstrate normal wall thickness and caliber. Mild to moderate c olonic obstipation. No free air. Ascites has increased, from minimal to now [id number]. Nodes and vessels: No retroperitoneal or mesenteric adenopathy by size criteria. Aorta and inferior vena cava are normal in size. Miscellaneous: No ventral hernias. PELVIS: Genitourinary: Bladder wall thickness is normal. Miscellaneous: No inguinal hernias or adenopathy. Ascites extends from the abdomen into the pelvis. No peritoneal masses are seen. Mild to moderate colonic obstipation. Bones: No suspicious bony lesions. No vertebral body compression fractures. IMPRESSION: 1. Numerous pulmonary nodules have been previously documented one month ago, and these nodules have u niformly enlarged in size over time by approximately 1-2 mm in all dimensions. 2. Hepatic metastatic disease, slight interval increase from one month ago. 3. New finding of mild to moderate ascites, no sign of intestinal obstruction or perforation. 4. Mild to moderate obstipation within the abdomen and pelvis. 5. Biliary stent in place, intrahepatic biliary distention has not developed. Reviewed by: Lei Emmanuel MD on 01/10/2021 3:34 PM PDT Approved by: Lei Emmaneul MD on 01/10/2021 3:34 PM PDT Station ID: [id number]
[2021-01-10] MEDS ORDERED: MAGNESIUM CITRATE 296 ML BOTTLE PO STA (16:37)
[2021-01-10] MEDS ORDERED: MINERAL OIL ENEMA 133 ML BOTTLE RC STA (16:37)
[2021-01-10 16:42] LABS: BILIRUBIN,URINE NEGATIVE (NEGATIVE); GLUCOSE, URINE (UA) NEGATIVE (NEGATIVE); KETONES,URINE (UA) NEGATIVE (NEGATIVE); LEUKOCYTE ESTERASE, URINE NEGATIVE (NEGATIVE); NITRITE,URINE NEGATIVE (NEGATIVE); OCCULT BLOOD,URINE NEGATIVE (NEGATIVE); PH,URINE 5.5 PH (5.0-7.5); PROTEIN,URINE NEGATIVE (NEGATIVE); UROBILINOGEN,URINE 0.2 (NORMAL) E.U./dL (NORMAL)
[2021-01-10 16:44] LABS: CLARITY,URINE CLEAR (CLEAR)
[2021-01-10] MEDS ORDERED: LUBIPROSTONE 24 MCG CAPSULE PO STA (17:00)
[2021-01-10] MEDS ORDERED: IOPAMIDOL-300 100 ML VIAL IVP ONE (17:25)
[2021-01-10 17:52] VITALS: BP 127/86
== END 2021-01-10 18:08 | disposition home or self-care (01) ==
LOC: ED 12:33
DX: K59.00 Constipation, unspecified (principal); I10 Essential (primary) hypertension; Z85.038 Personal history of other malignant neoplasm of large intestine
CPT/HCPCS: 36415; 74177; 80053; 81003; 83690; 85025; 96374; 96375; 96376; 99284; A9270; J1170; J8499; Q9967; 81001; 87086

== ENCOUNTER 2021-01-13 08:50 | Outpatient (CLI) | payer MEDICARE, MEDICAID ==
--- NOTE | 2021-01-13 16:44 | CONSULTATION NOTE ---
Palliative Care Follow Up - Referral Referring Provider: Dr. 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 He continues to decline, both functionally, increased short-term memory deficits, is hardly able to walk at this point in time, and continues with weight loss. Today he weighs 109, he reports he is "eating", but did end up in the emergency room over the weekend, with constipation. They did do a CT scan, which showed numerous pulmonary nodules from 1 month ago that have increased, hepatic metastatic disease has increased, a finding of mild to moderate ascites but no intestinal obstruction or perforation, and mild to moderate obstipation, the biliary Stent was seen to be in place, with no intrahepatic biliary distention as they have been watching this. Patient presented last week with worsening oral candidiasis, weight loss, difficulty keeping up with food and fluids, worsening memory problems and functional decline. He did receive fluids, and had laid the ground work for looking at most likely transitioning to hospice. Patient has been having difficulty tracking medications, did bring his meds in and we figure this out. Patient in the context of his goals have always been to push forward, he has heard both from Ni Trinh the oncology RENATA and his oncologist Dr. Parker came in to talk to him, that the chemo would cause more harm than good and we would hasten his decline. He does seem to understand this, though reports he is going to continue "to fight this". Discussed what this meant, in his mind its eating and drinking, getting stronger, and continued to survive. He is able to admit though that his quality of life, as well as his underlying physical status, has to continue to decline and we are all concerned. He was quite open actually to the conversation of the POLST, as well as support for his friends and family with the more urgent need for end-of-life plan. Past Medical History: COPD, hypertension, his original diagnosis of sigmoid colon cancer was 2010 stage II with resection and no adjuvant therapy. He reoccurred with metastatic disease to the lung 09/2014, with treatment and left lower lobe lobe lung wedge resection 02/2015. He had a relapse of metastatic disease in the surgical bed of the liver by PET scan 08/2018, with a resection of the liver in 11/2018. He has had multiple chemotherapies, active surveillance, and needed biliary stenting 10/2019, with stent replacement 12/2019, and metal stent placement on 02/2020. He has had numerous toxicities and his last treatment was on 12/23 with 50% dose reduction. Social History - Living Situation Living arrangement: At home Living Situation: Alone Support System: Patient has always had a complex social situation, he does have a "girlfriend" Shantelle that have been good friends for several decades, he does not live with her. She does not feel in conversation that she can be his caregiver please see palliative care discussion regarding this. [place], he also has a brother in [place] whom he is quite close to, but would not be able to to support for caregiving. Though he is his DPOA. 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 He has had multiple jobs and has long-term been in the community of [place]. His most important relationship is with Bobby, who is the nephew of his girlfriend whom he has helped raised over the last several years. Medications/Allergies - Medications Home Medications: Ambulatory Orders Medication Instructions Recorded Confirmed Citalopram [CeleXA] 30 mg PO DAILY 10/18/17 01/13/21 Fluticasone/Salmeterol [Advair 1 inh INH BID 10/18/17 01/13/21 250-50 Diskus] Aspirin [Adult Aspirin Regimen] 81 mg PO DAILY 10/21/19 01/13/21 Cyanocobalamin (Vitamin B-12) 1,000 mcg PO DAILY 10/21/19 01/13/21 [Vitamin B-12] Ondansetron [Ondansetron Odt] 8 mg PO BID PRN 11/07/19 01/13/21 Umeclidinium [place] [Incruse 1 inh INH DAILY 08/13/20 01/13/21 Ellipta] oxyCODONE/ACET 5/325 [Percocet 5 1 each PO Q6H PRN 08/13/20 01/13/21 mg/325 mg] Zolpidem Tartrate [Ambien] 10 mg PO QPM PRN #30 tablet 10/22/20 01/13/21 Omeprazole 40 mg PO DAILY #90 cap 12/03/20 01/13/21 Ipratropium/Albuterol [Combivent 1 puffs INH QID PRN 12/07/20 01/13/21 Respimat] Sennosides [Senna] 8.6 mg PO BID 12/07/20 01/13/21 Nystatin [Mycostatin] 5 ml PO QID PRN 12/24/20 01/13/21 dronabinoL [Marinol] 5 mg PO BID 12/24/20 01/13/21 Fluconazole [Diflucan] 100 mg PO DAILY #8 tablet 01/06/21 01/13/21 Magnesium Citrate 296 ml PO ONCE PRN #296 ml 01/10/21 01/13/21 polyethylene glycoL 3350 [Miralax] 17 gm PO DAILY PRN #1 bottle 01/10/21 01/13/21 - Allergies Allergies/Adverse Reactions: Allergies Allergy/AdvReac Type Severity Reaction Status Date / Time nitrous oxide [Nitrous Oxide] AdvReac Hallucinati Verified 01/13/21 09:59 ons tramadol AdvReac Nausea Verified 01/13/21 09:59 Review of Systems - Constitutional Constitutional: reports: Fatigue, Weakness, Weight loss (49.8 kg today) - Eyes Eyes: reports: Vision loss - Ears, Nose & Throat Ears, Nose & Throat: reports: Hearing loss, Dental decay (significant), Dry mouth. denies: Mouth lesions (improved looks clear though feels still poorly) - Cardiovascular Cardiovascular: reports: Lightheadedness (worsening; hypotension today), Decr. exercise tolerance. denies: Edema - Respiratory Respiratory: reports: Cough (non productive), SOB at rest, SOB with exertion. denies: Hemoptysis - Gastrointestinal Gastrointestinal: reports: Abdominal pain, Constipation (had ED visit; reports "cleaned out"), Nausea, Bloating, Poor appetite, Early satiety - Genitourinary Genitourinary: reports: Frequency - Musculoskeletal Musculoskeletal: reports: Back pain, Muscle aches, Stiffness, Muscle weakness, Transfer issues (needing wheelchair today; living downstairs as can't go to loft currently) - Integumentary Integumentary: reports: Dryness, Hair changes (thinning) - Neurological Neurological: reports: General weakness, Numbness, Memory problems, Abnormal gait - Psychiatric Psychiatric: reports: Depression, Anxiety - Hematologic/Lymphatic Hematologic/Lymph: reports: Anemia, Recurrent infections (oral candidiasis) - All Other Systems All Other Systems: reports: Reviewed and negative Physical Exam - Vital Signs Temperature: 36.3 C Pulse Rate: 98 Respiratory Rate: 20 Blood Pressure: 99/56 - Physical Exam General Appearance: positive: Alert, Mild distress, Anxious, Lethargic, Cachetic Eyes Bilateral: positive: Normal inspection, No scleral icterus, Other (periorbital edema) ENT: positive: Other. negative: No signs of dehydration Neck: positive: Trachea midline Cardiovascular: positive: Regular rate & rhythm, Tachycardia Respiratory: positive: Diminished throughout. negative: No respiratory distress (noted respiratory effort with activity) Abdomen: positive: Soft, Tenderness, Distended (mild (known new ascites)) Skin: positive: Pallor, Dryness, Other (poor hygiene) Extremities: positive: No pedal edema, Other (in wheelchair) Neurologic/Psychiatric: positive: Oriented x3, Flat affect Palliative Care - POLST Patient has POLST: Yes POLST Status: DNR, Comfort Measures (completed at time of visit) Pain: No pain Tiredness/Fatigue: Severe (7-10) Drowsiness/Sedation: Moderate (4-6) Nausea: None Anorexia: Severe (7-10), Weight loss Dyspnea: Moderate (4-6) Depression: Moderate (4-6) Anxiety: Severe (7-10) Feelings of wellbeing/Perceived Quality of Life: Poor, Worsening Sleep: Variable sleep pattern Constipation: Yes, Unmanaged Performance Status: Patient has had slow declining functional status, more rapid over the last week. He did need a wheelchair to come in today, has had increased lightheadedness, less steady, has been working at good chair, but finding it more difficult. He is very weak and shaky today's visit. - Palliative Care Discussion: Patient is appropriately tearful, he does understand there are no further treatment options for him, and any further treatment could hasten his demise. When asked as far as how he sees what is happening in the future going to have adequate support, he reports is going to be up to his family it is "up to them". He does not have any ideas about how best to meet his care needs, he reports Shantelle and Lewis are those who he trusts and are hoping they will assist him with this. Patient has often been somewhat evasive as far as making any solid plans, not wanting to be negative, has always had a complex both financial and social situation, his biggest focus is always been being the caregiver and support for Bobby. Patient reports he is "still going to fight" when asked further definition of what this was, he reports it is he was going to eat and drink and get stronger, did encourage him to continue to focus on these goals, but need to have a plan in place if he continues to decline as he is currently. He did verbalize understanding. I did introduce the POLST, given at this point in time that CPR would most likely not be successful, and patient's goal is to have a at home and on the hospital, we did fill it out as DN AR/allow natural , with comfort focused treatment. Counseling provided to introduce the role of hospice, as a layer support not only for himself but also for his family particularly Bobby. Expressed my concerns we needed to start planning for end-of-life support plan, even though he is hoping for the best for more time, we also need to have something in place regarding when he no longer can take care of himself, he did acknowledge understanding of this. He did give me permission and requested I reach out to his support network. Spoke with Shantelle Ospina home number [phone] and cell number [phone]. She very much would want to be able to help, but she does not feel emotionally she could handle this. She had been caregiver and oversight both for her mom who of dementia and her sister who had a long complicated course in her illness as well so is familiar with hospice. She does understand we would most likely need to look at placement, she reports "I will help with what I can". She does understand that Moreno is a poor transportation planner, and is willing to help provide support in the context of long-term planning. Did also call his nephew Lewis Marin who is the second choice for DPOA, he is not surprised, his uncle has been keeping them apprised, and has seen how he is declined he gave him today to his visit. Can cell number is [phone], his home numbers [phone], his father Andrew Marin (Moreno's older brother) [phone] is his DPOA, but is unable to help him physically, Moreno says he has had a stroke, but his nephew says he is astute mentally. He is willing to be present also to be supportive of the hospice admit, recognizing Moreno is going to need help particularly with planning and moving forward with end-of-life care plans. At high bereavement risk is going to be BobbyShantelle's nephew. Moreno has been actively playing a role in his life, he has been challenged I suspect he is on Asperger spectrum. Moreno has been trying to prepare him, for his impending decline and . He does note skin to be very complicated on him, this will be important for Bobby to have both social work and grounds worker support most likely will be Moreno's greatest concern through this whole process. Results - Lab Results Lab results reviewed: Yes Impression and Recommendations - Palliative Care Impression: This is a feisty 70-year-old gentleman with recurrent stage IV sigmoid colon cancer to liver, nodes, lung, With recent ED visit for constipation and scan showing ongoing progressive disease even from scans 1 month ago. Patient continues to present with failure to thrive, with weight loss, functional decline, mild cognitive decline, and worsening fatigue. Palliative care meeting with patient today for transition to hospice and addressing goals of care. Recommendations/Counseling Done: 1. Oral candidiasis. Patient did complete his Diflucan, still with very poor oral hygiene, candidiasis appears to be clear, but mouth remains tender. Encouraged to continue with normal saline rinses, and does have nystatin if needs to restart. 2. Medication adherence. Patient had brought in multiple medications last time, continues to have difficulty following directions, case and point ended up with severe constipation and in the ED. Patient did not bring in oxycodone/acetaminophen 5/325, so may not have any opioids in the home. Patient does use intermittent marijuana for anxiety and appetite. Patient has had a review of medications, and has instructions. 3. Hypotension. Patient has continue to hold amlodipine, he has been pushing fluids, did receive fluids today. Patient is at high risk for recurrent dehydration. 4. Metastatic stage IV sigmoid colon cancer to liver, nodes, lungs, now with new ascites. Patient continues to present with failure to thrive, at this point is been advised no longer candidate for chemotherapy, this was very difficult for him to hear, but does recognize he is doing poorly. 5. Advanced care planning. Counseling provided regarding hospice benefit, did reach out regarding support of Shantelle and isi with update, they both 1 be present for hospice visit and will be instrumental in supporting patient but he will need a long-term plan ESTHELA, this was communicated to hospice. POLST was completed as DN AR/DNI and comfort focused care. Patient with very poor health literacy, recommend keeping things very simple, and instructions always written down. I would explore isi and Shantelle's availability to help oversee patient's medications and care even if they cannot be in the caregiving role. 75 minutes with Review of chart, coordination of care with oncology team, coordination of care with family, hospice, [id number] with patient, with counseling for goals of care, completion of POLST, as well as anticipatory guidance.
== END 2021-01-13 08:51 | disposition home or self-care (01) ==
LOC: PC 08:50
PROVIDERS: ATTEND Nurse Practitioner Adult Health
DX: Z51.5 Encounter for palliative care (principal); I95.9 Hypotension, unspecified; C18.7 Malignant neoplasm of sigmoid colon; C78.7 Secondary malignant neoplasm of liver and intrahepatic bile duct; C77.9 Secondary and unspecified malignant neoplasm of lymph node, unspecified; C78.00 Secondary malignant neoplasm of unspecified lung; Z66 Do not resuscitate
CPT/HCPCS: 99215